=== PATIENT | female | born 1950 | race Native Hawaiian/Other Pacific Islander ===

== ENCOUNTER 2018-11-15 15:16 | Inpatient (IN) | payer MEDICARE, SELFPAY ==
[2018-11-15] VITALS (20 sets, daily range): BP systolic 123–178; BP diastolic 59–97; PULSE 91–114; RESP 15–89; TEMP 36.3–36.9; O2SAT 95–100; BMI 24.5
--- NOTE | 2018-11-15 15:49 | DI.RAD.S_ITS ---
PROCEDURE: XR ANKLE LT MIN 3V INDICATIONS: slipped, now with deformity ankle, discolored,cool to touch/ TECHNIQUE: 30 views of the ankle were acquired. COMPARISON: None. FINDINGS: Bones: Fractures of the medial malleolus, lateral malleolus and posterior malleolus noted. The calyces dislocated laterally. Soft tissues: No tibiotalar joint effusion. Achilles tendon appears normal. IMPRESSION: Left ankle fracture-dislocation. Dictated by: Berna Loera MD, PhD on 11/15/2018 at 16:06 Approved by: Berna Loera MD, PhD on 11/15/2018 at 16:07
--- NOTE | 2018-11-15 15:51 | PC.NURSE ---
pt reports, doing laundry, floor is wet, slipped, occured at 1115, now with left ankle deformity, cool to touch, +dp,discolored. states, crawled on the carpet for a while. left ankle with superficial abrasions lateral side. last solid meal at 11am
--- NOTE | 2018-11-15 15:53 | ED_ITS ---
HPI - Extremity Injury (Lower) General Chief Complaint: Extremity Injury, Lower Stated Complaint: L ankle deformity Time Seen by Provider: 11/15/18 15:53 Source: patient Mode of arrival: EMS Limitations: no limitations History of Present Illness HPI Narrative: Patient is a 68-year-old female insulin-dependent diabetic who stated that she was in her laundry room today when she slipped and fell. She states she slipped on water on the floor. Stated that she did not hit her head. She had immediate pain in her left ankle. Was unable to walk on it. She states that it took her at least an hour to crawl to the phone where she could call the ambulance. When ambulance arrived they noticed a obvious deformity to her left ankle. They placed her in a pillow splint and brought her to the emergency department. No other interventions prior to arrival. Patient reports no other injuries from the event. Related Data Previous Rx's Medication Instructions Recorded [True Metrix Test str] #100 ea 07/20/16 [lancets] 1 MC Q DAY #100 ea 07/20/16 [true metrix monitor] #1 07/20/16 metformin 1,000 mg PO BID #180 tab 12/21/16 Allergies Allergy/AdvReac Type Severity Reaction Status Date / Time No Known Drug Allergies Allergy Verified 11/15/18 15:21 Review of Systems Constitutional Denies fever(s) and Denies frequent falls Eyes Denies loss of vision ENT Ears, Nose, Mouth, and Throat: Denies disequilibrium Cardiovascular Denies chest pain and Denies dyspnea Respiratory Denies dyspnea Gastrointestinal Gastrointestinal: Denies abdominal pain, Denies nausea and Denies vomiting Musculoskeletal Comments: Left ankle pain and deformity Integumentary/Breasts Comments: Blister/abrasion to the inside of her left ankle Neurologic Denies behavioral changes, Denies frequent falls, Denies loss of vision, Denies sensory deficit and Denies disequilibrium Psychiatric Denies behavioral changes Hematologic/Lymphatic Denies easy bleeding and Denies easy bruising [facility] Medical History Diabetes (Chronic) Hyperlipidemia (Chronic ~07/2016) Hypertension (Chronic) Hypothyroidism (Chronic ~07/2016) Carpal tunnel syndrome (Resolved ~1997) Wrist fracture, right (Resolved 11/2016) Surgical History (Updated 04/08/18 @ 12:30 by Liz Verduzco LPN) History of carpal tunnel repair (1997) Family History (Updated 04/08/18 @ 12:30 by Liz Verduzco LPN) Mother Age: 87 Diabetes mellitus Father Dementia Social History lives independently: Yes Family History (Updated 04/08/18 @ 12:30 by Liz Verduzco LPN) Mother Age: 87 Diabetes mellitus Father Dementia Social History lives independently: Yes Exam Initial Vital Signs Initial Vital Signs: Vital Signs Temperature 97.8 F 11/15/18 15:19 Pulse Rate 97 H 11/15/18 15:19 Respiratory Rate 16 11/15/18 15:19 Blood Pressure 168/97 H 11/15/18 15:19 Pulse Oximetry 99 11/15/18 15:19 Const General: cooperative, comfortable, well developed, well groomed and No acute distress Orientation: alert, awake and oriented x3 HENMT Head: normal to inspection and normocephalic Resp Effort & Inspection: normal respiratory effort Auscultation: clear to auscultation bilaterally Cardio Rate: regular rate Rhythm: regular rhythm Pulses: posterior tibial pulses present on the left GI Inspection: non-distended Palpation: soft Skin Other: Patient with what appeared to be fracture blisters on the medial malleolus. Neuro Other: Sensation intact to light touch left lower extremity Extrem Other: Left hip and left knee unremarkable. Patient does have obvious deformity to the left ankle. No other orthopedic injuries noted. Psych Appearance: grossly normal and well kempt Procedures Orthopedic Fracture Reduction Fracture #1: Time Out Performed: Yes Side: left Fracture Reduction Location: tibia and fibula Analgesia: other (IV fentanyl) Technique: direct manipulation Post Reduction X-rays Demonstrate: anatomical reduction Post-reduction neuro exam: intact and no change Post-reduction vascular exam: intact and no change Splint Applied: Yes Patient Tolerated Procedure: Well and No complications Orthopedic Splinting/Casting Injury #1: Side: left Lower Extremity Injury Location: ankle Lower Extremity Immobilizer: posterior splint and stirrup splint Other Orthopedic Equipment: crutches Post splinting neuro exam: intact and no change Post splinting vascular exam: no change Placed by: Provider Course Orders Ordered: ED Orders 11/15/18 15:49 XR ankle LT min 3V Stat 11/15/18 17:50 XR ankle LT 2V Stat Discontinued Medications Fentanyl (Sublimaze) 50 mcg IV NOW ONE Stop: 11/15/18 16:50 Last Admin: 11/15/18 17:38 Dose: 50 mcg Fentanyl (Sublimaze) 50 mcg IV NOW ONE Stop: 11/15/18 18:21 Last Admin: 11/15/18 18:20 Dose: 50 mcg Morphine Sulfate (Morphine) 4 mg IV NOW ONE Stop: 11/15/18 15:56 Last Admin: 11/15/18 16:10 Dose: 4 mg Vital Signs - 8 hr 11/15/18 15:19 11/15/18 15:30 11/15/18 15:45 Temperature 97.8 F Pulse Rate 97 H 91 H 96 H Respiratory Rate 16 89 H Blood Pressure 168/97 H Blood Pressure [Left Arm] 156/82 H 155/87 H Pulse Oximetry 99 100 11/15/18 16:15 11/15/18 16:51 11/15/18 17:29 Temperature Pulse Rate 94 H 97 H 102 H Respiratory Rate 15 18 Blood Pressure Blood Pressure [Left Arm] 142/81 H 123/59 L 144/74 H Pulse Oximetry 99 98 100 11/15/18 17:38 11/15/18 18:10 11/15/18 18:19 Temperature Pulse Rate 99 H 94 H 96 H Respiratory Rate 25 H 26 H 18 Blood Pressure Blood Pressure [Left Arm] 163/75 H 158/80 H 159/85 H Pulse Oximetry 98 95 98 11/15/18 18:22 11/15/18 18:31 11/15/18 18:38 Temperature Pulse Rate 96 H 101 H 100 H Respiratory Rate 18 18 20 Blood Pressure Blood Pressure [Left Arm] 160/79 H 178/93 H 171/88 H Pulse Oximetry 95 97 95 11/15/18 18:40 11/15/18 18:54 11/15/18 18:56 Temperature Pulse Rate 96 H 99 H 97 H Respiratory Rate 18 18 Blood Pressure Blood Pressure [Left Arm] 150/84 H 158/79 H 153/84 H Pulse Oximetry 99 97 MDM - Extremity Injury (Lower) Lab Data Point of Care Testing Test Results Negative Imaging Data Left ankle x-ray: Radiologist's impression: [address] [address] XRay Report Signed Patient: Caitlin KerrR#: [id number] : 2At:[id number] Age/Sex: 68 / FDate of Service: 11/15/18 Loc: ED Accession Number: [id number] Procedure: XR ankle LT min 3V Ordering Provider: Ryley Walker D.O. PROCEDURE: XR ANKLE LT MIN 3V INDICATIONS: slipped, now with deformity ankle, discolored,cool to touch/ TECHNIQUE: 30 views of the ankle were acquired. COMPARISON: None. FINDINGS: Bones: Fractures of the medial malleolus, lateral malleolus and posterior malleolus noted. The calyces dislocated laterally. Soft tissues: No tibiotalar joint effusion. Achilles tendon appears normal. IMPRESSION: Left ankle fracture-dislocation. Dictated by: Berna Loera MD, PhD on 11/15/2018 at 16:06 Approved by: Berna Loera MD, PhD on 11/15/2018 at 16:07 Post reduction left ankle x-ray: Radiologist's impression: [address] [address] XRay Report Signed Patient: Zoraida Kerr#: [id number] : 2Acct:[id number] Age/Sex: 68 / FDate of Service: 11/15/18 Loc: ED Accession Number: [id number] Procedure: XR ankle LT 2V Ordering Provider: Ryley Walker D.O. PROCEDURE: XR ANKLE LT 2V INDICATIONS: post reduction TECHNIQUE: L2 views of the ankle were acquired. COMPARISON: [facility], , XR ANKLE LT MIN 3V, 11/15/2018, 15:54. FINDINGS: Bones: Patient is status post reduction of a pilon fracture. Fracture fragments are now in near-anatomic alignment. Soft tissues: No tibiotalar joint effusion. Achilles tendon appears normal. IMPRESSION: Near-anatomic alignment status post reduction. Dictated by: Brooke Dietrich M.D. on 11/15/2018 at 18:45 Approved by: Brooke Dietrich M.D. on 11/15/2018 at 18:46 MDM Narrative Medical decision making narrative: Patient with what appears to be a mechanical fall. She has an obvious deformity to her left ankle which was reduced and splinted per the procedure note. I did discuss the case with Dr. Schaeffer who is on for Orthopedics who stated that because she had fracture blisters on her medial malleolus that he would not take her to the operating room. Patient has no other injuries from the fall. We did have to place the splint twice because after the 1st splint application her ankle was still dislocated. The patient tolerated the procedure very well with just IV fentanyl. Patient was unable to use the crutches to get to the bathroom. This was secondary to her ability to use the crutches not per any reports of pain. She actually was sleeping in the room after the reduction. Patient lives on her own. She has no help at home. She has stairs in her house. Given her living situations and the fracture will admit for physical therapy evaluation. Discussed the case with the night hospitalist who will admit. Discussed admission with the patient who expressed understanding and agreement Patient has a scheduled appointment with Dr. Schaeffer on November 22 at 1030 in the morning at the [facility] Orthopedic group office here in [place] The patient was given this information. Discharge Plan Departure Patient Disposition: Admitted as Observation Clinical Impression: Ankle fracture, left Qualifiers: Encounter type: initial encounter Fracture type: closed Qualified Code(s): S82.892A - Other fracture of left lower leg, initial encounter for closed fracture
[2018-11-15] MEDS: MORPHINE 4 MG/ML INJ IV (16:10)
[2018-11-15] MEDS: fentaNYL 100 MCG/2 ML INJ 50 MCG IV ×2 (17:38→18:20)
--- NOTE | 2018-11-15 17:50 | DI.RAD.S_ITS ---
PROCEDURE: XR ANKLE LT 2V INDICATIONS: post reduction TECHNIQUE: L2 views of the ankle were acquired. COMPARISON: [facility], CR, XR ANKLE LT MIN 3V, 11/15/2018, 15:54. FINDINGS: Bones: Patient is status post reduction of a pilon fracture. Fracture fragments are now in near-anatomic alignment. Soft tissues: No tibiotalar joint effusion. Achilles tendon appears normal. IMPRESSION: Near-anatomic alignment status post reduction. Dictated by: Brooke Dietrich M.D. on 11/15/2018 at 18:45 Approved by: Brooke Dietrich M.D. on 11/15/2018 at 18:46
--- NOTE | 2018-11-15 17:50 | PC.NURSE ---
1738 wound cleaned/irrigated with ns. dried, dr jacobo placed zero form at the site. 1738 fentanyl 50mcg ivps [address] jacobo for left lower leg splint. +dcsm post application, circulation improved, pink, pt able to wiggle toes.
--- NOTE | 2018-11-15 17:57 | PC.NURSE ---
re xray, post splint application.
[2018-11-15] MEDS: MAG HYDROX/ALUMINUM/SIMETH SUS 20 ML, LIDOCAINE VISCOUS 2% 15 ML PO (22:36)
--- NOTE | 2018-11-15 22:38 | PM.HP.1 ---
History of Present Illness Date Patient Seen: 11/15/18 Time Patient Seen: 22:39 Chief complaint: L ankle deformity Narrative: The patient is a 68-year-old female w/ HTN (history, currently not on meds), IDDM 2T, HLD (diet controlled), and hypothyroidism who presented to the ED after sustaining a ground level fall. Patient reports slipping on water in her laundry room. She fell onto her left ankle. At time of injury experienced immediate pain. She was unable to get up on her own ambulate. Denies injury to the head and loss of consciousness. Prior to the event patient was not dizzy. Denies chest pain, palpitations, dizziness, lightheadedness, and syncopal events. She crawled to the phone to summon help, thereafter was transferred to the ED for further evaluation. XR of the ankle revealed fracture of the medial malleolus, lateral malleolus, and posterior malleolus. The calyces dislocated laterally. ED discussed patient's case with Orthopedic surgery, Dr. Schaeffer. Patient was not a surgical candidate due to fracture blisters on medial malleolus. Consequently she underwent a reduction and splinting of the injured extremity. Patient was unable to use crutches or ambulate on own. At baseline patient lead lives and functions independently. She does not have family or other help available to her. Patient is being admitted for physical therapy. Patient History Medical History Diabetes (Chronic) Hyperlipidemia (Chronic ~07/2016) Hypertension (Chronic) Hypothyroidism (Chronic ~07/2016) Carpal tunnel syndrome (Resolved ~1997) Wrist fracture, right (Resolved 11/2016) Surgical History History of carpal tunnel repair (1997) Family History (Updated 04/08/18 @ 12:30 by Liz Verduzco LPN) Mother Age: 87 Diabetes mellitus Father Dementia Social History lives independently: Yes Family & Social History Family History Mother Age: 87 Diabetes mellitus Father Dementia Social History: lives independently Yes Safety & Behavioral: Feels Safe in Current Yes Environment Been Physically Hurt or No Threatened By a Person Meds Home Medications Medication Instructions Recorded Confirmed Type [True Metrix Test str] #100 ea 07/20/16 Rx [lancets] 1 MC Q DAY #100 ea 07/20/16 Rx [true metrix monitor] #1 07/20/16 Rx metformin 1,000 mg PO BID #180 tab 12/21/16 11/15/18 Rx Allergies Allergy/AdvReac Type Severity Reaction Status Date / Time No Known Drug Allergies Allergy Verified 11/15/18 15:21 Review of Systems Review of Systems All systems reviewed & are unremarkable except as noted in HPI and below Exam Vital Signs (past 8 hours): - 11/15/18 15:19 11/15/18 15:30 11/15/18 15:45 Temperature 97.8 F Pulse Rate 97 H 91 H 96 H Respiratory Rate 16 89 H Blood Pressure 168/97 H Blood Pressure [Left Arm] 156/82 H 155/87 H Pulse Oximetry 99 100 11/15/18 16:15 11/15/18 16:51 11/15/18 17:29 Temperature Pulse Rate 94 H 97 H 102 H Respiratory Rate 15 18 Blood Pressure Blood Pressure [Left Arm] 142/81 H 123/59 L 144/74 H Pulse Oximetry 99 98 100 11/15/18 17:38 11/15/18 18:10 11/15/18 18:19 Temperature Pulse Rate 99 H 94 H 96 H Respiratory Rate 25 H 26 H 18 Blood Pressure Blood Pressure [Left Arm] 163/75 H 158/80 H 159/85 H Pulse Oximetry 98 95 98 11/15/18 18:22 11/15/18 18:31 11/15/18 18:38 Temperature Pulse Rate 96 H 101 H 100 H Respiratory Rate 18 18 20 Blood Pressure Blood Pressure [Left Arm] 160/79 H 178/93 H 171/88 H Pulse Oximetry 95 97 95 11/15/18 18:40 11/15/18 18:54 11/15/18 18:56 Temperature Pulse Rate 96 H 99 H 97 H Respiratory Rate 18 18 Blood Pressure Blood Pressure [Left Arm] 150/84 H 158/79 H 153/84 H Pulse Oximetry 99 97 11/15/18 20:30 Temperature Pulse Rate 107 H Respiratory Rate 18 Blood Pressure Blood Pressure [Left Arm] 148/63 H Pulse Oximetry 97 Oxygen Delivery Method Room Air Narrative Exam Narrative: Constitutional: NAD Neurologic: AOx3, no focal neurological deficits Head: NC, AT Eyes: PERRL, EOMI, Ears: external ears normal, no otorrhea Nose: external nose normal, no rhinorrhea or epistaxis Throat: MMM, oropharynx w/o exudate Neck: no masses, lymphadenopathy, or JVD Chest / Respiratory: equal chest rise, unlabored respiratory effort, no distress tachypnea, CTAB Heart / CV: S1S2, no murmur Abdomen / GI: NT, ND, + BS, no organomegaly : no suprapubic tenderness Peripheral / Vascular: RLE -peripheral pulses palpable, no edema, sensation intact LLE - pupils palpable, edema, extremity in splint, mid-foot to toes slightly cool, sensation intact, splint present Musc: full ROM of upper and RLE. LLE decreased strength, but ROM intact. Skin: Skin intact known suspicious lesion Assessment & Plan Assessment & Plan narrative: Tri-malleolar fracture, acute, present on admission, active - status post reduction and splinting - neurovascular checks q.4 hours - supportive care - consult PT in a.m., re: mobility training w/ crutches - not a surgical candidate, per ED, discussed with Dr. Schaeffer Pain, acute, present on admission, active - Tylenol and Tramadol , prn Essential hypertension (not on meds), chronic condition, present on admission, active BP slightly elevated due to acute pain - trend BP - treat underlying pain DM 2T, chronic, present on admission, not controlled - resume [employer] regimen of metformin, trend blood glucose -carb consistent ADH healthy diet Patient wishes to be full code. Does not have a formal health directive. Designates her neighbor Kim, as a surrogate decision maker Home medications reviewed and reconciled VTE w/ heparin
[2018-11-16] VITALS (8 sets, daily range): BP systolic 118–163; BP diastolic 59–92; PULSE 82–102; RESP 16–18; TEMP 36.2–37.4; O2SAT 97–100; BMI 24.5
--- NOTE | 2018-11-16 06:33 | PC.NURSE ---
Shift note: Received pt from evening shift, finished admission physical assessment. Findings notable for hypertension and tachycardia and pain to LLE which is wrapped in barber wrap and splinted. Shift neurovascular checks demonstrated palpable dorsalis pedis pulse, and <2 cap refill in great toe. Pt used bedpan at the beginning of shift as she did not feel safe to use crutches or perform single leg stand and pivot. Pt reported tolerable pain at 3/10 numerically and denied the need for pain medications. Pt is a Type 2 diabetic who uses metformin, she did not take her evening metformin and will continue with [facility] blood sugar checks today. Pt was oriented to room and all safety checks, used call light proficiently and was able to make needs know. Remains a high fall risk d/t the fact that she is here as the result of a fall and is unsteady on crutches.
[2018-11-16 09:47] LABS: Add Manual Diff / Slide Review NO; Basophils Absolute Auto 0 /uL (0-100); Basophils Percent Auto 0.4 % (0-2); Eosinophils Absolute Auto 0 /uL (0-450); Eosinophils Percent Auto 0.3 % (2-4); Hematocrit 30.1 % (36-46); Hemoglobin 10.3 g/dL (12.0-16.0); Lymphocytes Absolute Auto 1500 /uL (1100-4500); Lymphocytes Percent Auto 16.6 % (25-40); Mean Corpuscular HGB Conc 34.3 % (30-36); Mean Corpuscular Hemoglobin 31.8 PG (26-34); Mean Corpuscular Volume 92.9 fL (80-100); Monocytes Absolute Auto 1000 /uL (0-900); Monocytes Percent Auto 11.2 % (3-14); Neutrophils Absolute Auto 6400 /uL (1500-7000); Neutrophils Percent Auto 71.5 % (50-75); Platelet Count 340 X10^3/uL (150-400); Red Blood Cell Count 3.24 X10^6/uL (4.0-5.2); Red Cell Distribution Width 12.2 % (11.6-14.8); White Blood Cell Count 8.9 X10^3/uL (4.5-11.0)
[2018-11-16] MEDS: HEPARIN 5,000 UNIT/ML VIAL 5000 UNIT SUBCUT ×2 (09:51→21:14)
[2018-11-16] MEDS: INSULIN REGULAR 100 UNIT/ML 3 ML VIAL 10 UNIT IV (09:52)
[2018-11-16] MEDS: TRAMADOL 50 MG TABLET PO ×2 (09:52→18:24)
[2018-11-16 10:04] LABS: Alanine Aminotransferase 37 IU/L (9-52); Albumin 3.9 g/dL (3.5-5.0); Albumin Globulin Ratio 1.2 (1.0-2.8); Alkaline Phosphatase 99 U/L (38-126); Aspartate Aminotransferase 47 IU/L (14-36); BUN Creatinine Ratio 23.6 (6-22); Bilirubin Total 0.7 mg/dL (0.2-1.3); Blood Urea Nitrogen 26 mg/dL (7-17); Calcium 10.6 mg/dL (8.4-10.2); Carbon Dioxide 29 mmol/L (22-32); Chloride 81 mmol/L (98-107); Estimated Glomerular Filt Rate 49.7 mL/min (>60); Globulin 3.2 g/dL (1.7-4.1); Glucose 385 mg/dL (80-110); HEMOLYSIS < 15 (0-50); Magnesium 1.5 mg/dL (1.6-2.3); Potassium 4.2 mmol/L (3.4-5.1); Sodium 121 mmol/L (137-145); Total Protein 7.1 g/dL (6.3-8.2)
--- NOTE | 2018-11-16 11:04 | PM.PN.1 ---
Subjective Date Patient Seen: 11/16/18 Time Patient Seen: 11:06 Interval history: Patient admitted for the emergency room left ankle trimalleolar fracture. she sustained a fall and her laundry area on wet floor yesterday. She was seen in the emergency room for evaluation and x-ray. Had displaced trimalleolar fracture which was reduced in the ER and placed in a lower leg splint. Dr. Schaeffer was consulted by phone for orthopedic evaluation. he was told that the patient had blisters to her medial ankle and it was decided not to do surgery at this time because of potential infection risk. Because of patient living alone and having stairs and other management issues she was admitted to the hospital under the hospitalist. Dr. Schaeffer was not informed of this. She has remained stable and nonweightbearing to the left leg. plans were made before the patient was admitted to the hospital for her to be seen by Dr. Schaeffer on 11/22/2018 at 1030 for re-evaluation of her ankle and to check her skin. she is tentatively scheduled for left ankle surgery in approximately 2 weeks. Exam Vital Signs (past 8 hours): - 11/16/18 05:44 11/16/18 09:00 Temperature 98.3 F 98.0 F Pulse Rate 102 H 89 Respiratory Rate 18 16 Blood Pressure 147/77 H 163/92 H Pulse Oximetry 100 97 Oxygen Delivery Method Room Air Oxygen Flow Rate 0 Narrative Exam Narrative: Alert, oriented no acute distress resting in bed. left leg. lower leg splint is in place. good blanching and sensation to all toes. Good movement of all toes. The splint and padding were opened to be able to evaluate her ankle area. she has a few small blisters to the superior medial malleolus area approximately 2-3 mm in size. Slight superficial abrasion to the medial malleolus area without signs of infection or inflammation. Good pulses and sensation to foot. Mynor wrap dry applied to the splint. Objective Labs Result Diagrams: 11/16/18 09:17 11/16/18 09:17 Labs: Laboratory Results - last 24 hr 11/16/18 11/16/18 11/16/18 09:17 09:17 09:17 WBC 8.9 RBC 3.24 L Hgb 10.3 L Hct 30.1 L MCV 92.9 MCH 31.8 MCHC 34.3 RDW 12.2 Plt Count 340 Neut % (Auto) 71.5 Lymph % (Auto) 16.6 L [place] % (Auto) 11.2 Eos % (Auto) 0.3 L Baso % (Auto) 0.4 Neut # (Auto) 6400 Lymph # (Auto) 1500 [place] # (Auto) 1000 H Eos # (Auto) 0 Baso # (Auto) 0 Sodium 121 L Potassium 4.2 Chloride 81 L Carbon Dioxide 29 BUN 26 H Creatinine 1.10 H Estimated GFR 49.7 L BUN/Creatinine Ratio 23.6 H Glucose 385 H Calcium 10.6 H Magnesium 1.5 L Total Bilirubin 0.7 AST 47 H ALT 37 Alkaline Phosphatase 99 Total Protein 7.1 Albumin 3.9 Globulin 3.2 Albumin/Globulin Ratio 1.2 Procalcitonin 0.20 Assessment & Plan Assessment & Plan narrative: Plan: Patient will be nonweightbearing to left leg. I did contact Dr. Schaeffer by phone to inform him of formal ortho consult requested. Quality VTE Deep Vein Thrombosis/Pulmonary Embolism Present on Admission: No
--- NOTE | 2018-11-16 11:11 | P.PN_ITS ---
Subjective Date Patient Seen: 11/16/18 Time Patient Seen: 11:06 Interval history: Patient admitted for the emergency room left ankle trimalleolar fracture. she sustained a fall and her laundry area on wet floor yesterday. She was seen in the emergency room for evaluation and x-ray. Had d isplaced trimalleolar fracture which was reduced in the ER and placed in a lower leg splint. Dr. Schaeffer was consulted by phone for orthopedic evaluation. he was told that the patient had blisters to her medial ankle and it was decided not to do surgery at this time because of potential infection risk. Because of patient living alone and having stairs and other management issues she was admitted to the hospital under the hospitalist. Dr. Schaeffer was not informed of this. She has remained stable and nonweightbearing to the left leg. plans were made before the patient was admitted to the hospital for her to be seen by Dr. Schaeffer on 11/22/2018 at 1030 for re-evaluation of her ankle and to check her skin. she is tentatively scheduled for left ankle surgery in approximately 2 weeks. Exam Vital Signs (past 8 hours): - 11/16/18 05:44 11/16/18 09:00 Temperature 98.3 F 98.0 F Pulse Rate 102 H 89 Respiratory Rate 18 16 Blood Pressure 147/77 H 163/92 H Pulse Oximetry 100 97 Oxygen Delivery Method Room Air Oxygen Flow Rate 0 Narrative Exam Narrative: Alert, oriented no acute distress resting in bed. left leg. lower leg splint is in place. good blanching and sensation to all toes. Good movement of all toes. The splint and padding were opened to be able to evaluate her ankle area. she has a few small blisters to the superior medial malleolus area approximately 2-3 mm in size. Slight superficial abrasion to the medial malleolus area without signs of infection or inflammation. Good pulses and sensation to foot. Mynor wrap dry applied to the splint. Objective Labs Result Diagrams: 11/16/18 09:17 11/16/18 09:17 Labs: Laboratory Results - last 24 hr 11/16/18 11/16/18 11/16/18 09:17 09:17 09:17 WBC 8.9 RBC 3.24 L Hgb 10.3 L Hct 30.1 L MCV 92.9 MCH 31.8 MCHC 34.3 RDW 12.2 Plt Count 340 Neut % (Auto) 71.5 Lymph % (Auto) 16.[address] [place] % (Auto) 11.2 Eos % (Auto) 0.3 L Baso % (Auto) 0.4 Neut # (Auto) 6400 Lymph # (Auto) 1500 [place] # (Auto) 1000 H Eos # (Auto) 0 Baso # (Auto) 0 Sodium 121 L Potassium 4.2 Chloride 81 L Carbon Dioxide 29 BUN 26 H Creatinine 1.10 H Estimated GFR 49.7 L BUN/Creatinine Ratio 23.6 H Glucose 385 H Calcium 10.6 H Magnesium 1.5 L Total Bilirubin 0.7 AST 47 H ALT 37 Alkaline Phosphatase 99 Total Protein 7.1 Albumin 3.9 Globulin 3.2 Albumin/Globulin Ratio 1.2 Procalcitonin 0.20 Assessment & Plan Assessment & Plan narrative: Plan: Patient will be nonweightbearing to left leg. I did contact Dr. Schaeffer by phone to inform him of formal ortho consult requested. Quality VTE Deep Vein Thrombosis/Pulmonary Embolism Present on Admission: No
[2018-11-16] MEDS: INSULIN ASPART 100 UNIT/ML INSULN PEN SUBCUT ×3 (12:06→21:17)
[2018-11-16] MEDS: ACETAMINOPHEN 325 MG TABLET 650 MG PO (14:20)
--- NOTE | 2018-11-16 14:44 | PT.IIE ---
Current Diagnoses Other fracture of left lower leg, initial encounter for closed fracture (11/15/18) Surgical History (Last Reviewed 11/15/18 @ 22:42 by SARKIS Avila) History of carpal tunnel repair (1997) Medical History (Last Reviewed 11/15/18 @ 22:40 by SARKIS Avila) Diabetes (Chronic) Hyperlipidemia (Chronic ~07/2016) Hypertension (Chronic) Hypothyroidism (Chronic ~07/2016) Carpal tunnel syndrome (Resolved ~1997) Wrist fracture, right (Resolved 11/2016) Physical Therapy Inpatient Evaluation/Re-Eval M1 PT/OT-IP Prior Functional Status Start: 11/16/18 16:42 Freq: NEEDED Status: Active Protocol: Document 11/16/18 14:44 AB (Rec: 11/16/18 16:59 AB [id number]) Medical Review Prior Functional Status Medical History Reviewed Yes Communication able to make needs known Mobility and Gait pt stated that she is indpendent with all mobilities and ambulation without AD Social History Household Members none Living Arrangements House Number of Floors (Floors) 3 or More Floors Number of Stairs To Enter/Railing? to enter: 8 steps with R rail ascending to bedroom level: 7 steps with bilateral rails to laundry room: 6 steps with L rail descending Home Environment Standard Height Toilet Tub/Shower Home Equipment Crutches Additional Social History Comment pt has crutches dispensed from the ER but pt does not know how to use it M2 PT-IP Current Condition Start: 11/16/18 16:42 Freq: NEEDED Status: Active Protocol: Document 11/16/18 14:44 AB (Rec: 11/16/18 16:59 AB [id number]) Physical Therapy Current Condition Current Condition Evaluation Date 11/16/18 Treatment Diagnosis L trimalleolar ankle fx; difficulty in walking Onset Date 11/15/18 Precautions Brace pt has a L lower leg soft cast on Weight Bearing Status Weight Bearing Status Non-Weight Bearing Allowed Weight Bearing Amount (enter % NWB LLE or #) (%) M3 PT-IP Subjective Start: 11/16/18 16:42 Freq: NEEDED Status: Active Protocol: Document 11/16/18 14:44 AB (Rec: 11/16/18 16:59 AB [id number]) Subjective Physical Therapy Visit Type Type Initial Evaluation Visit Start Time 14:44 Visit Stop Time 15:20 Total Visit Minutes 36 Number of PHYSICAL THERAPY AIDES TEACHER Visits 0 Physical Therapy Visit Comments Patient Comments pt agreeable to do PT Therapy Pain Assessment Pain When Pain Assessed At Rest Pain Present Pain Present Pain Reported Location left ankle Intensity 6 Scale Used increases with movement Pain Management Techniques Re-positioning Timing of Activity with Medications M4 PT-IP Mobility and Gait Start: 11/16/18 16:42 Freq: NEEDED Status: Active Protocol: Document 11/16/18 14:44 AB (Rec: 11/16/18 16:59 AB [id number]) PT-Bed Mobility Assessment Supine to Sit Supine to Sit Minimal Assistance Scooting Scooting to Edge of Bed Standby Assistance PT-Transfer Assessment Sit to and From Stand Sit to and from Stand Maximum Assistance 1 Person Assistance 2 Person Assistance Use of Upper Extremities Equipment Transfer Assistive Device Gait Belt Front Wheeled Walker Orthotic/Prosthetic Devices or Brace: Yes Transfers Transfer Destination Chair Bedside Commode Transfer Technique Stand Step Pivot Transfer Ability Level of Assist Maximum Assistance 2 Person Assistance Use of Upper Extremities Comments Mobility Comments pt completed sit to stand x 3 attempts requiring max A x 1 to 2 and max cues. pt decrease motor planning requiring step by step cues with all tasks but despite cues has difficulty following instructions. pt completed stand pivot transfer using FWW max A x 2 and max cues. pt presents with unsteadiness with standing and required min A and max cues to maintain NWB on LLE. pt completed sit to stand from bedside commode max A x 1 and max cues and was able to maintain standing using FWW for support mod A while nurse assist pt with hygiene care and brief management. pt completed stand pivot trnasfer requiring max A x 2 . pt with LOB and required max A for controlled descent to the chair but able to keep LE off the floor with assist. Gait Assessment Comments Gait Comments unable at this time PT-Balance Assessment Sitting Balance and Reactions Static Sitting Balance Ability Good Dynamic Sitting Balance Ability Good Standing Balance and Reactions Static Standing Balance Ability Poor Dynamic Standing Balance Ability Poor Device Used FWW M5 PT-IP Objective Assessments Start: 11/16/18 16:42 Freq: NEEDED Status: Active Protocol: Document 11/16/18 14:44 AB (Rec: 11/16/18 16:59 AB [id number]) Orientation Orientation/Cognition Level of Alertness Alert Orientation Name Place Situation Safety Awareness Decreased Safety Awareness Memory Description Short Term Impaired Button Grader Impaired Gross Range of Motion Lower Extremity ROM Assessment Left Impaired Impairments L lower leg on a soft cast Strength Lower Extremity Strength Assessment Left Impaired Hip 4-/5 Knee 3+/5 Sensation Assessment Sensation Gross Sensation WNL Muscle Tone Muscle Tone WNL Yes M6 PT-IP Treatment Start: 11/16/18 16:42 Freq: NEEDED Status: Active Protocol: Document 11/16/18 14:44 AB (Rec: 11/16/18 16:59 AB [id number]) Physical Therapy Treatment Education Education Provided Weight Bearing Status Safety M7 PT-IP Assessment and Plan Start: 11/16/18 16:42 Freq: NEEDED Status: Active Protocol: Document 11/16/18 14:44 AB (Rec: 11/16/18 16:59 AB [id number]) PT Summary Assessment and Plan Potential Rehabilitation Potential Fair Status of Condition at Evaluation Evolving Summary Impairments Pain ROM Strength Balance Coordination Sensation Tone Cognition Bed Mobility Transfers Gait Activity Tolerance Assessment Summary pt requiring 2 person max A with mobility and unable to ambulate. pt will require SNF rehab to improve strength and function. axillary crutches was dispensed to pt when she was in the ER per pt, but pt is not appropriate to use crutches at this time. Goals Bed Mobility Goal Independent Transfer Goal Minimal Assistance Front Wheeled Walker Gait Goal Minimal Assistance Front Wheel Walker Gait Distance 50 Days to Meet Goals 10 Frequency of Treatment Frequency Of Treatment Twice a Day Treatment Plan Physical Therapy Treatment Plan Bed Mobility Training Transfer Training Gait Training Therapeutic Exercise Balance Retraining Post Op Education Discharge Planning Hot or Cold Pack Neuromuscular Re-ed Coordination Retraining Manual Therapy Other Recommendations and Next Treatment standing bal/jarrett, transfers Focus Recommendations To Nursing Amount of Assist Needed 2 Person Assist Discharge Recommendations PT Discharge Recommendations SNF Rehab
--- NOTE | 2018-11-16 17:20 | P.CONS_ITS ---
History of Present Illness Date Patient Seen: 11/16/18 Time Patient Seen: 17:20 Chief complaint: L ankle deformity Reason for consult: Left ankle fracture Requesting provider: Ryley Walker Narrative: The patient is a 68-year-old woman who lives alone in [place]. She slipped on a wet floor in her laundry room yesterday sustaining an injury to her left ankle. she crawl to the phone up the stairs which took approximately an hour. Emergency medical services took her to the emergency room where x-rays revealed a displaced trimalleolar left ankle fracture. This was a closed fracture and fracture blisters were already forming. I was contacted over the phone by the emergency room physician and we discussed closed reduction and splinting followed by delayed fixation after healing of the blisters. Apparently the patient had difficulty ambulating and was admitted to the hospital under the hospitalist for physical therapy. I was never informed of this. I have been reconsulted by the hospitalist to evaluate and treat the fracture. [facility] Medical History Diabetes (Chronic) Hyperlipidemia (Chronic ~07/2016) Hypertension (Chronic) Hypothyroidism (Chronic ~07/2016) Carpal tunnel syndrome (Resolved ~1997) Wrist fracture, right (Resolved 11/2016) Surgical History History of carpal tunnel repair (1997) Family History Mother Age: 87 Diabetes mellitus Father Dementia Social History household members: none lives independently: Yes Smoking Status: Never smoker alcohol intake: current Family History Mother Age: 87 Diabetes mellitus Father Dementia Social History household members: none lives independently: Yes Smoking Status: Never smoker alcohol intake: current Meds Home Medications Medication Instructions Recorded Confirmed Type metformin 1,000 mg PO BID #180 tab 12/21/16 11/15/18 Rx [True Metrix Test str] 1 ea MISCELLANEOUS DIRECTED 11/16/18 11/16/18 History [lancets] 1 ea MC Q DAY 11/16/18 11/16/18 History [true metrix monitor] 1 ea MISCELLANEOUS DIRECTED 11/16/18 11/16/18 History Allergies Allergy/AdvReac Type Severity Reaction Status Date / Time No Known Drug Allergies Allergy Verified 11/15/18 15:21 Review of Systems Review of Systems All systems reviewed & are unremarkable except as noted in HPI and below Exam Vital Signs (past 8 hours): - 11/16/18 13:00 11/16/18 15:40 11/16/18 17:00 Temperature 98.1 F 99.3 F Pulse Rate 92 H 92 H Respiratory Rate 16 18 Blood Pressure 147/76 H 123/59 L Pulse Oximetry 98 100 99 Oxygen Delivery Method Room Air Oxygen Flow Rate 0 Narrative Exam Narrative: Left ankle was splinted with small fracture blisters over the medial aspect. These appear to be anterior to the likely position of the incision. The foot is swollen but there is no gross deformity after the reduction performed in the emergency room. Light touch is intact in the super ficial and deep peroneal nerve distribution as well as the tibial nerve distribution. Patient can dorsiflex and plantar flex her toes. Objective Labs Result Diagrams: 11/16/18 09:17 11/16/18 09:17 Labs: Laboratory Results - last 24 hr 11/16/18 11/16/18 11/16/18 09:17 09:17 09:17 WBC 8.9 RBC 3.24 L Hgb 10.3 L Hct 30.1 L MCV 92.9 MCH 31.8 MCHC 34.3 RDW 12.2 Plt Count 340 Neut % (Auto) 71.5 Lymph % (Auto) 16.6 L [place] % (Auto) 11.2 Eos % (Auto) 0.3 L Baso % (Auto) 0.4 Neut # (Auto) 6400 Lymph # (Auto) 1500 [place] # (Auto) 1000 H Eos # (Auto) 0 Baso # (Auto) 0 Sodium 121 L Potassium 4.2 Chloride 81 L Carbon Dioxide 29 BUN 26 H Creatinine 1.10 H Estimated GFR 49.7 L BUN/Creatinine Ratio 23.6 H Glucose 385 H Calcium 10.6 H Magnesium 1.5 L Total Bilirubin 0.7 AST 47 H ALT 37 Alkaline Phosphatase 99 Total Protein 7.1 Albumin 3.9 Globulin 3.2 Albumin/Globulin Ratio 1.2 Procalcitonin 0.20 Radiographs: X-rays of the ankle show a displaced trimalleolar ankle fracture with comminution of the fibular fracture. There are postreduction x-rays showing acceptable relocation of the subluxated ankle and acceptable alignment of the fracture fragments. Assessment & Plan Assessment & Plan narrative: The patient has a closed ankle fracture on the left. Unfortunately she has not been able to perform well enough in physical therapy to be safe at home using crutches. What would typically be an outpatient evaluation and treatment has now been moved into the inpatient realm. The 1st availability that I have to perform this urgent elective fracture surgery would be Wednesday morning. We will have her continue physical therapy in the interim as this will assist her with eventual discharge after surgery. I have discussed the risks benefits and alternatives to surgery with the patient. She has agreed to proceed after this discussion and given her signed informed consent. Time Spent With Patient Time with patient: Greater than 35 minutes
--- NOTE | 2018-11-16 19:12 | PM.PN.1 ---
Subjective Date Patient Seen: 11/16/18 Interval history: Hannah Kerr is a 68-year-old female with a past medical history significant for hypertension, hyperlipidemia, diabetes mellitus type 2, non-insulin using, and hypothyroidism who presented after ground level fall with left ankle deformity and pain. Admitted for trimalleolar fracture and further management. The patient is resting in bedside chair. She is comfortable unless she moves her left leg. She has been on tramadol for pain control which has not given her much relief. Ordered oxycodone 5 mg every 4 hours as needed for moderate pain and will titrate to response. Also will cover with morphine 2 mg every 6 hours for severe pain. She has not had hyponatremia in the past and is currently asymptomatic. She denies polydipsia and polyuria related to her diabetes but has been significantly hyperglycemic since admission. She has no other complaints and denies headache, lightheadedness or dizziness, shortness of breath, chest pain, abdominal pain, nausea, vomiting, fever, chills, dysuria, diarrhea or constipation. She is voiding and eliminating without difficulty. She is not mobilizing well due to pain. Discussed patient with Orthopedic surgery and ask for formal consultation. The patient's surgery was delayed due to possible bullae on malleoli and possible risk of infection. However, she has an abrasion with a couple very small millimeter sized bullae around medial malleoli likely related to fall/fracture. She has no signs of infection. Orthopedic surgery has formally consulted and will await recommendations. Exam Vital Signs (past 8 hours): - 11/16/18 13:00 11/16/18 15:40 11/16/18 17:00 Temperature 98.1 F 99.3 F Pulse Rate 92 H 92 H Respiratory Rate 16 18 Blood Pressure 147/76 H 123/59 L Pulse Oximetry 98 100 99 Oxygen Delivery Method Room Air Oxygen Flow Rate 0 Narrative Exam Narrative: General: Middle-aged female sitting in bedside chair, mildly uncomfortable with movement but in no acute distress, well-developed, well-nourished, appropriately interactive. HEENT: Normocephalic, atraumatic. External ears without defect. Pupils equal, round, and reactive to light. Anicteric sclerae, moist conjunctivae, and no lid lag. Oropharynx free of erythema and cobble stoning with moist mucosa. Neck: Supple with full range of motion. No lymphadenopathy or thyromegaly. Cardiovascular: Regular rate and rhythm without murmurs, rubs, or gallops appreciated. Pulmonary: Clear to auscultation bilaterally without crackles, wheezes, or rhonchi. Normal respiratory effort with no use of accessory muscles. Abdomen: Soft, bowel sounds present, nontender, nondistended. No hepatosplenomegaly or masses appreciated. Extremities: No clubbing, cyanosis, or edema. Left leg in splint C/D/I. Vascularly intact. Skin: Normal temperature, turgor, and texture; no rash, ulcers, or subcutaneous nodules appreciated. Neurological: Cranial nerves grossly intact. Psychiatric: Normal mood and affect. Alert and oriented to person, place, and time. Objective Labs Result Diagrams: 11/16/18 09:17 11/16/18 09:17 Labs: Laboratory Results - last 24 hr 11/16/18 11/16/18 11/16/18 09:17 09:17 09:17 WBC 8.9 RBC 3.24 L Hgb 10.3 L Hct 30.1 L MCV 92.9 MCH 31.8 MCHC 34.3 RDW 12.2 Plt Count 340 Neut % (Auto) 71.5 Lymph % (Auto) 16.6 L [place] % (Auto) 11.2 Eos % (Auto) 0.3 L Baso % (Auto) 0.4 Neut # (Auto) 6400 Lymph # (Auto) 1500 [place] # (Auto) 1000 H Eos # (Auto) 0 Baso # (Auto) 0 Sodium 121 L Potassium 4.2 Chloride 81 L Carbon Dioxide 29 BUN 26 H Creatinine 1.10 H Estimated GFR 49.7 L BUN/Creatinine Ratio 23.6 H Glucose 385 H Calcium 10.6 H Magnesium 1.5 L Total Bilirubin 0.7 AST 47 H ALT 37 Alkaline Phosphatase 99 Total Protein 7.1 Albumin 3.9 Globulin 3.2 Albumin/Globulin Ratio 1.2 Procalcitonin 0.20 Assessment & Plan Assessment & Plan narrative: Hannah Kerr is a 68-year-old female with a past medical history significant for hypertension, hyperlipidemia, diabetes mellitus type 2, non-insulin using, and hypothyroidism who presented after ground level fall with left ankle deformity and pain. Admitted for trimalleolar fracture and further management. 1. Acute non-pathological trimalleolar fracture after ground level fall, present on admission. Active. -Status post reduction and splinting. -Continue close neurovascular checks. -Ordered Tylenol 650 mg every 6 hours as needed for mild pain, oxycodone 5-325 mg every 4 hours as needed for moderate pain, and morphine 2 mg IV every 6 hours as needed for severe pain. -Consulted Orthopedic surgery, Dr. Schaeffer, formally for evaluation and recommendations. -Continue PT and OT evaluation and treatment. 2. Hyponatremia, acuity unclear, present on admission. Active. -Possibly secondary to diabetes as she has been significantly hyperglycemic -Initial sodium 121 and patient is asymptomatic. -Ordered normal saline 100 mL/hr x1 bag. Reassess sodium level in the morning. 3. Hypertension, chronic, present on admission. Stable. -Not medically treated. BP slightly elevated due to acute pain. - trend BP - treat underlying pain 4. Diabetes mellitus type 2, non-insulin using, present on admission. Stable. -Unclear baseline hemoglobin A1c as patient has not seen a doctor in several years due to loss of insurance. Ordered hemoglobin A1c, pending. -Held metformin. -Patient was given regular insulin 10 units IV x1 due to significant hyperglycemia 428. Continue [facility] blood glucose checks and low-dose correctional scale insulin. Started Lantus 10 units daily at bedtime for tight glycemic control. -Continue heart healthy/carbohydrate consistent diet. 5. Hyperlipidemia, present on admission. Presume stable. -Not medically treated. Disposition: Patient likely to discharge in several days depending on orthopedic evaluation and recommendations, mobilization and pain control. Quality VTE Deep Vein Thrombosis/Pulmonary Embolism Present on Admission: No
[2018-11-16] MEDS: MORPHINE 2 MG/ML INJ IV (19:56)
[2018-11-16] MEDS: SODIUM CHLORIDE 0.9% 1,000 ML 100 ML IV (21:13)
[2018-11-16] MEDS: MAGNESIUM SULFATE 2 GM/50 ML PIGGYBACK IV (21:14)
[2018-11-16] MEDS: INSULIN GLARGINE 100 UNIT/ML 3ML PEN 10 UNIT SUBCUT (21:17)
[2018-11-16] MEDS: OXYCODONE IR 5 MG TABLET PO (21:39)
[2018-11-17] VITALS (17 sets, daily range): BP systolic 94–167; BP diastolic 56–93; PULSE 80–109; RESP 15–20; TEMP 36.1–36.7; O2SAT 92–99
[2018-11-17] MEDS: OXYCODONE IR 5 MG TABLET PO ×2 (01:11→13:38)
[2018-11-17] MEDS: ACETAMINOPHEN 325 MG TABLET 650 MG PO ×2 (01:12→13:37)
--- NOTE | 2018-11-17 01:58 | PC.NURSE ---
Sugar Cane Planter Note: 0030: Awake, assisted to change brief; pt assisted with willow care. Assisted to reposition. IV in place in lt wrist, with NS infusing at 100cc/hr. Splint and barber wrap intact to lt leg/ankle, and lt leg elevated on pillow.
[2018-11-17 06:38] LABS: Add Manual Diff / Slide Review NO; Alanine Aminotransferase 32 IU/L (9-52); Albumin 3.6 g/dL (3.5-5.0); Albumin Globulin Ratio 1.2 (1.0-2.8); Alkaline Phosphatase 87 U/L (38-126); Aspartate Aminotransferase 44 IU/L (14-36); BUN Creatinine Ratio 19.1 (6-22); Basophils Absolute Auto 0 /uL (0-100); Basophils Percent Auto 0.5 % (0-2); Bilirubin Total 0.5 mg/dL (0.2-1.3); Blood Urea Nitrogen 21 mg/dL (7-17); Calcium 9.5 mg/dL (8.4-10.2); Carbon Dioxide 29 mmol/L (22-32); Chloride 89 mmol/L (98-107); Eosinophils Absolute Auto 100 /uL (0-450); Estimated Glomerular Filt Rate 49.7 mL/min (>60); Globulin 3.1 g/dL (1.7-4.1); Glucose 194 mg/dL (80-110); HEMOLYSIS < 15 (0-50); Hematocrit 27.6 % (36-46); Hemoglobin 9.6 g/dL (12.0-16.0); Lymphocytes Absolute Auto 2900 /uL (1100-4500); Lymphocytes Percent Auto 40.6 % (25-40); Mean Corpuscular HGB Conc 34.6 % (30-36); Mean Corpuscular Hemoglobin 32.3 PG (26-34); Mean Corpuscular Volume 93.5 fL (80-100); Monocytes Absolute Auto 800 /uL (0-900); Monocytes Percent Auto 10.6 % (3-14); Neutrophils Absolute Auto 3300 /uL (1500-7000); Neutrophils Percent Auto 46.3 % (50-75); Platelet Count 294 X10^3/uL (150-400); Potassium 3.4 mmol/L (3.4-5.1); Red Blood Cell Count 2.96 X10^6/uL (4.0-5.2); Red Cell Distribution Width 12.3 % (11.6-14.8); Sodium 127 mmol/L (137-145); Total Protein 6.7 g/dL (6.3-8.2); White Blood Cell Count 7.2 X10^3/uL (4.5-11.0)
--- NOTE | 2018-11-17 07:24 | PM.PN.1 ---
Subjective Date Patient Seen: 11/17/18 Time Patient Seen: 07:24 Interval history: The patient is a 68-year-old woman who lives alone in [place]. She slipped on a wet floor in her laundry room yesterday sustaining an injury to her left ankle. She crawl to the phone up the stairs which took approximately an hour. Emergency medical services took her to the emergency room where x-rays revealed a displaced trimalleolar left ankle fracture. This was a closed fracture and fracture blisters were already forming. Dr. Schaeffer was consulted again last night and will plan to do ORIF tonight. Patient agrees with plan. She complains of a lot of pain in the ankle. PT has been very difficult, and she is slow to mobilize. Exam Vital Signs (past 8 hours): - 11/17/18 00:00 11/17/18 00:45 11/17/18 04:29 Temperature 97.0 F L Pulse Rate 80 Respiratory Rate 16 Blood Pressure 128/73 Pulse Oximetry 96 98 98 11/17/18 05:00 Temperature 97.2 F L Pulse Rate 82 Respiratory Rate 16 Blood Pressure 140/81 Pulse Oximetry 99 Oxygen Delivery Method Room Air Oxygen Flow Rate 0 Narrative Exam Narrative: Patient lying in bed in NAD. She is alert and oriented X3. Splint on left foot is well fitting and intact. Toes have brisk refill and full sensation. Objective Labs Result Diagrams: 11/17/18 06:12 11/17/18 06:12 Labs: Laboratory Results - last 24 hr 11/16/18 11/16/18 11/16/18 09:17 09:17 09:17 WBC 8.9 RBC 3.24 L Hgb 10.3 L Hct 30.1 L MCV 92.9 MCH 31.8 MCHC 34.3 RDW 12.2 Plt Count 340 Neut % (Auto) 71.5 Lymph % (Auto) 16.6 L [place] % (Auto) 11.2 Eos % (Auto) 0.3 L Baso % (Auto) 0.4 Neut # (Auto) 6400 Lymph # (Auto) 1500 [place] # (Auto) 1000 H Eos # (Auto) 0 Baso # (Auto) 0 Sodium 121 L Potassium 4.2 Chloride 81 L Carbon Dioxide 29 BUN 26 H Creatinine 1.10 H Estimated GFR 49.7 L BUN/Creatinine Ratio 23.6 H Glucose 385 H Calcium 10.6 H Magnesium 1.5 L Total Bilirubin 0.7 AST 47 H ALT 37 Alkaline Phosphatase 99 Total Protein 7.1 Albumin 3.9 Globulin 3.2 Albumin/Globulin Ratio 1.2 Procalcitonin 0.20 11/17/18 11/17/18 06:12 06:12 WBC 7.2 RBC 2.96 L Hgb 9.6 L Hct 27.6 L MCV 93.5 MCH 32.3 MCHC 34.6 RDW 12.3 Plt Count 294 Neut % (Auto) 46.3 L D Lymph % (Auto) 40.6 H D [place] % (Auto) 10.6 Eos % (Auto) 2.0 Baso % (Auto) 0.5 Neut # (Auto) 3300 Lymph # (Auto) 2900 [place] # (Auto) 800 Eos # (Auto) 100 Baso # (Auto) 0 Sodium 127 L Potassium 3.4 Chloride 89 L Carbon Dioxide 29 BUN 21 H Creatinine 1.10 H Estimated GFR 49.7 L BUN/Creatinine Ratio 19.1 Glucose 194 H D Calcium 9.5 Magnesium Total Bilirubin 0.5 AST 44 H ALT 32 Alkaline Phosphatase 87 Total Protein 6.7 Albumin 3.6 Globulin 3.1 Albumin/Globulin Ratio 1.2 Procalcitonin Assessment & Plan (1) Ankle fracture, left: Problem details: Plan to do ORIF tonight with Dr. Schaeffer. Patient will be NPO after breakfast this morning. Qualifiers: Encounter type: initial encounter Fracture healing: Fracture type: closed Open fracture type: Qualified Code(s): S82.892A - Other fracture of left lower leg, initial encounter for closed fracture Current visit: Yes Status: Acute Quality VTE Deep Vein Thrombosis/Pulmonary Embolism Present on Admission: No
[2018-11-17] MEDS: MORPHINE 2 MG/ML INJ IV (07:44)
[2018-11-17] MEDS: INSULIN ASPART 100 UNIT/ML INSULN PEN SUBCUT ×4 (07:51→21:35)
--- NOTE | 2018-11-17 08:43 | CM.DANOTE ---
Addendum entered by Erin Altamirano LPN 11/18/18 13:36: Sara/[facility] did confirm acceptance. Will update pt now and give her the [facility] brochure. Original Note: DCP: assessment: case received yesterday, EMR reviewed. Discussed in Team Rounds. At that point POC was very much in process and is now clearer. Met with pt this morning: introduced self and role. Pt is a 68 year old who admitted the night of 11/15 after a fall resulting in a 3 part ankle fracture. Admitted to hospitalist service. Dr. Dawkins consulted with ortho: Dr. Schaeffer now plans to take pt to surgery this evening for a planned ORIF of ankle. Payer: Medicare. Pt states she also has Medicaid: will alert [facility] to same and for confirmation. Admission status: was in review much of yesterday: determination: INPT: confirmed by UR RN Richi. Pt confirms she does live by herself, understands she will need rehab and plans for a snf with goal to get home and get outside to enjoy the summer. SNF choice list: discussed: decision: [facility] as is only local facility: referral: Sara via phone discussion and efax. December anticipates acceptance when pt is stable for snf level care. P: check in tomorrow with pt and follow. Will bring her the [facility] brochure.
[2018-11-17] MEDS: SODIUM CHLORIDE 0.9% 1,000 ML 100 ML IV (10:07)
--- NOTE | 2018-11-17 11:05 | PT.IPTN ---
Current Diagnoses Other fracture of left lower leg, initial encounter for closed fracture (11/15/18) Physical Therapy Treatment Note M2 PT-IP Current Condition Start: 11/16/18 16:42 Freq: NEEDED Status: Active Protocol: Document 11/16/18 14:44 AB (Rec: 11/16/18 16:59 AB [id number]) Physical Therapy Current Condition Current Condition Evaluation Date 11/16/18 Treatment Diagnosis L trimalleolar ankle fx; difficulty in walking Onset Date 11/15/18 Precautions Brace pt has a L lower leg soft cast on Weight Bearing Status Weight Bearing Status Non-Weight Bearing Allowed Weight Bearing Amount (enter % NWB LLE or #) (%) M3 PT-IP Subjective Start: 11/16/18 16:42 Freq: NEEDED Status: Active Protocol: Document 11/17/18 11:05 GGD (Rec: 11/17/18 11:32 GGD [id number]) Subjective Physical Therapy Visit Type Type Patient Refusal Notes Pt refused states that she having pain and is having surgery today. =
--- NOTE | 2018-11-17 12:09 | PC.NURSE ---
Day shift: Called and left message on [employer] cell phone about the Pt's high BG. Reported that it is 348 for lunch. Pt is NPO now. Talked to meteorologist in charge Teresa and we will give the Novolog.
[2018-11-17] MEDS: POTASSIUM CHLORIDE 40 MEQ in SODIUM CHLORIDE 0.9% 500 ML 130 ML IV (13:29)
[2018-11-17] MEDS: CEFAZOLIN 1 GM/50 ML FROZ.PIGGY IV (17:03)
--- NOTE | 2018-11-17 17:32 | P.PN_ITS ---
Subjective Date Patient Seen: 11/17/18 Interval history: Hannah Kerr is a 68-year-old female with a past medical history significant for hypertension, hyperlipidemia, diabetes mellitus type 2, non- insulin using, and hypothyroidism who presented after ground level fall with left ankle deformity and pain. Admitted for trimalleolar fracture and further management. The patient is resting in bed comfortably. Her mother and friend are present in the room. She reports her pain now well controlled with oxycodone. She is now scheduled for surgery later today. She has no complaints and denies headache, lightheadedness or dizziness, shortness of breath, chest pain, abdominal pain, nausea, vomiting, fever, chills, dysuria, diarrhea or constipation. She is voiding and eliminating without difficulty. Exam Vital Signs (past 8 hours): - 11/17/18 12:16 11/17/18 15:25 11/17/18 16:52 Temperature 98.0 F Pulse Rate 86 Respiratory Rate 17 Blood Pressure 146/93 H Pulse Oximetry 94 98 97 Oxygen Delivery Method Room Air Oxygen Flow Rate 0 Narrative Exam Narrative: General: Middle-aged female sitting in bedside chair, mildly uncomfortable with movement but in no acute distress, well-developed, well-nourished, appropriately interactive. HEENT: Normocephalic, atraumatic. External ears without defect. Pupils equal, round, and reactive to light. Anicteric sclerae, moist conjunctivae, and no lid lag. Oropharynx free of erythema and cobble stoning with moist mucosa. Neck: Supple with full range of motion. No lymphadenopathy or thyromegaly. Cardiovascular: Regular rate and rhythm without murmurs, rubs, or gallops appreciated. Pulmonary: Clear to auscultation bilaterally without crackles, wheezes, or rhonchi. Normal respiratory effort with no use of accessory muscles. Abdomen: Soft, bowel sounds present, nontender, nondistended. No hepatosplenomegaly or masses appreciated. Extremities: No clubbing, cyanosis, or edema. Left leg in splint C/D/I. Vascularly intact. Skin: Normal temperature, turgor, and texture; no rash, ulcers, or subcutaneous nodules appreciated. Neurological: Cranial nerves grossly intact. Psychiatric: Normal mood and affect. Alert and oriented to person, place, and time. Objective Labs Result Diagrams: 11/17/18 06:12 11/17/18 06:12 Labs: Laboratory Results - last 24 hr 11/17/18 11/17/18 06:12 06:12 WBC 7.2 RBC 2.96 L Hgb 9.6 L Hct 27.6 L MCV 93.5 MCH 32.3 MCHC 34.6 RDW 12.3 Plt Count 294 Neut % (Auto) 46.3 L D Lymph % (Auto) 40.6 H D [place] % (Auto) 10.6 Eos % (Auto) 2.0 Baso % (Auto) 0.5 Neut # (Auto) 3300 Lymph # (Auto) 2900 [place] # (Auto) 800 Eos # (Auto) 100 Baso # (Auto) 0 Sodium 127 L Potassium 3.4 Chloride 89 L Carbon Dioxide 29 BUN 21 H Creatinine 1.10 H Estimated GFR 49.7 L BUN/Creatinine Ratio 19.1 Glucose 194 H D Calcium 9.5 Total Bilirubin 0.5 AST 44 H ALT 32 Alkaline Phosphatase 87 Total Protein 6.7 Albumin 3.6 Globulin 3.1 Albumin/Globulin Ratio 1.2 Assessment & Plan Assessment & Plan narrative: Hannah Kerr is a 68-year-old female with a past medical history significant for hypertension, hyperlipidemia, diabetes mellitus type 2, non- insulin using, and hypothyroidism who presented after ground level fall with left ankle deformity and pain. Admitted for trimalleolar fracture and further management. 1. Acute non-pathological trimalleolar fracture after ground level fall, present on admission. Active. -Status post reduction and splinting. -Continue close neurovascular checks. -Ordered Tylenol 650 mg every 6 hours as needed for mild pain, oxycodone 5-325 mg every 4 hours as needed for moderate pain, and morphine 2 mg IV every 6 hours as needed for severe pain. -Consulted Orthopedic surgery, Dr. Schaeffer, who plans to take patient to surgery later this afternoon. -Continue PT and OT evaluation and treatment. 2. Hyponatremia, acuity unclear, present on admission. Active. -Secondary to DM with significant hyperglycemic and dehydration. -Initial sodium 121 for which patient was asymptomatic. Sodium level increased to 127 today. -Continue normal saline 100 mL/hr until and after surgery. -Continue to monitor closely. 3. Hypertension, chronic, present on admission. Stable. -Not medically treated. BP slightly elevated due to acute pain. -Trend BP and treat pain. 4. Diabetes mellitus type 2, non-insulin using, present on admission. Stable. -Hemoglobin A1c 4.2%. There are individuals in which hemoglobin A1C is falsely low. Anemia can also falsely lower hemoglobin A1C. Ordered fructosamine to discern long-term glycemic control. -Continues to be significantly hyperglycemic likely due to DM type 2 versus stress response from acute fracture and pain. -Held metformin. -Patient was given regular insulin 10 units IV x1 due to significant hyperglycemia 428. Continue [facility] blood glucose checks and low-dose correctional scale insulin. -Continue Lantus 10 units daily at bedtime for tight glycemic control. May need to titrate up. -Continue heart healthy/carbohydrate consistent diet. 5. Hyperlipidemia, present on admission. Presumed stable. -Not medically treated. Disposition: Patient likely to discharge in several days to care home facility after trimalleolar fracture has been repaired and she is mobilizing with good pain control. Quality VTE Deep Vein Thrombosis/Pulmonary Embolism Present on Admission: No
[2018-11-17] MEDS: LACTATED RINGERS 1,000 ML 42 ML IV (19:00)
[2018-11-17] MEDS: CEFAZOLIN 1 GM VIAL IV (19:31)
--- NOTE | 2018-11-17 20:53 | PM.OP.1 ---
Operative Date/Time/Diagnoses Date of procedure: 11/17/18 Time of procedure: 20:53 Pre-op diagnosis: Closed displaced left trimalleolar ankle fracture Post-op diagnosis: same Procedure & Clinicians Procedure: Open reduction and internal fixation of medial and lateral malleolus fractures, left ankle Same procedure as scheduled: Yes Indications: The patient is a 68-year-old woman who suffered a fall and was unable to walk afterwards. Her ankle was deformed she was seen in the emergency room. She was initially to be discharged however was unable ambulate with crutches and therefore was admitted to the hospital. She is taken to the operating room for definitive open reduction internal fixation after discussion the risks benefits and alternatives. Risks discussed included but were not limited to: Failure of fixation, nerve damage, stiffness, infection, deep venous thrombosis, pulmonary embolism, stroke, myocardial infarction, permanent paralysis and . Surgeon: Fortino Schaeffer Click Yes if Unassisted: Yes Anesthesia Type: General, Peripheral nerve block and Local Operative Notes Findings: Extremely soft osteoporotic bone with a comminuted fracture. Closure Type: primary Specimen(s): none sent Prosthetic devices, grafts, tissues, transplants, or devices: Implants used in this procedure were manufactured by the [employer] and included a 6 hole 1/3 tubular side plate with 6 screws laterally 5 of the screws were cortical 1 was cancellous, two 40 mm partially-threaded cancellous screws were used medially Applied: cast(s) and implant(s) Estimated Blood Loss (mL): 25 Blood products transfused: none Tourniquet time (min): 47 Procedure in detail: The patient was seen in the preoperative area where she confirmed her left ankle was the operative site and her foot on this side was marked with my initials. She received preoperative antibiotics and was taken to the operating room and placed on the operating room table in the supine position. She underwent an ankle block and a general anesthetic. A tourniquet was placed about her proximal left thigh, her splint was removed and the ankle was prepared from the toes to the tourniquet with ChloraPrep in the usual fashion and draped through sterile drapes. The leg was elevated and exsanguinated with an Esmarch bandage. The tourniquet was inflated to 250 mm of mercury. An approximately 10 cm incision was centered over the fracture on the lateral aspect of the ankle and carried to the fracture with care being taken to try to avoid the superficial peroneal nerve. The fracture was identified, there was as a comminuted fragment that was removed as it was not attached to anything and the fracture was reduced with a reduction clamp. I initially placed a interfragmentary screw from anterior to posterior and removed the clamp our became evident that the screw was not holding the fracture well so the screw was removed and the fracture was maintained in a reduced position using the plate and the clamp. The screw holes were filled providing good fixation of the fracture although the bone was very soft. The lateral wound was irrigated and closed with 0 Vicryl in the fascial layer followed by 3 0 Vicryl in the subcutaneous layer. [place] were used for skin. The medial fracture was then approached using an approximately 4 cm incision. There were fracture blisters proximal to the site of the fracture and care was taken to avoid them with this incision. The bone was so soft on this side that the clamp would not hold in the bone proximally and therefore the fracture was held reduced manually and a drill bit was placed and left in position as a temporary fixation while a 2nd drill bit was placed posteriorly. The drill bits were then replaced with 40 mm partially-threaded cancellous screws. The position of the fracture and all hardware was verified as being appropriate on the AP and lateral views using fluoroscopy. The medial wound was irrigated and closed with 3 O Vicryl subcutaneous sutures and re for skin. 10 mL of 0.5% Marcaine was injected in the soft tissues around the incisions for postoperative pain control. Dressings of Xeroform on her fracture blisters and incisions were placed followed by 4x4s, abundant cast padding and a stirrup type splint. The tourniquet was deflated during dressing placement for total tourniquet time of 47 minutes. The patient was then taken to the recovery room in good condition having tolerated the procedure well. Complications: none Condition: stable Disposition: PACU Plan for aftercare: The patient will be maintained nonweightbearing in the splint for 2 weeks. She will then return to the clinic where the splint will be removed and the re removed. She will then be placed in a nonweightbearing cast for an additional 2 weeks. At that time she should be able to go into a removable orthosis and begin weight-bearing. After 4 additional weeks the removable orthosis will be discontinued.
--- NOTE | 2018-11-17 21:27 | SUR.PHASEI ---
Pt transferred to the floor. VS stable. IV saline locked, cap replaced. [place] cdi. Pt unable to wiggle toes. Report to Kalpesh
[2018-11-17] MEDS: INSULIN GLARGINE 100 UNIT/ML 3ML PEN 10 UNIT SUBCUT (21:34)
[2018-11-17] MEDS: LACTATED RINGERS 1,000 ML 125 ML IV (22:15)
[2018-11-17] MEDS: ACETAMINOPHEN 325 MG TABLET 975 MG PO (22:15)
[2018-11-17] MEDS: ASPIRIN EC 81 MG TABLET PO (22:30)
[2018-11-18] VITALS (12 sets, daily range): BP systolic 141–155; BP diastolic 77–95; PULSE 81–95; RESP 16–20; TEMP 36.7–37.8; O2SAT 96–100
[2018-11-18 06:51] LABS: Hematocrit 24.7 % (36-46); Hemoglobin 8.4 g/dL (12.0-16.0); Mean Corpuscular HGB Conc 33.9 % (30-36); Mean Corpuscular Hemoglobin 32.1 PG (26-34); Mean Corpuscular Volume 94.7 fL (80-100); Platelet Count 275 X10^3/uL (150-400); Red Blood Cell Count 2.61 X10^6/uL (4.0-5.2); Red Cell Distribution Width 12.1 % (11.6-14.8); White Blood Cell Count 7.3 X10^3/uL (4.5-11.0)
[2018-11-18] MEDS: POLYETHYLENE GLYCOL 3350 17 GM POWD.PACK PO (08:57)
[2018-11-18] MEDS: ACETAMINOPHEN 325 MG TABLET 975 MG PO ×3 (08:58→19:56)
[2018-11-18] MEDS: ASPIRIN EC 81 MG TABLET PO ×2 (08:59→21:20)
[2018-11-18] MEDS: METFORMIN HCL 500 MG TABLET 1000 MG PO ×2 (09:00→18:07)
[2018-11-18] MEDS: INSULIN ASPART 100 UNIT/ML INSULN PEN SUBCUT ×4 (09:01→21:22)
--- NOTE | 2018-11-18 10:20 | PT.IPRE ---
Current Diagnoses Other fracture of left lower leg, initial encounter for closed fracture (11/15/18) Surgery Performed Operation Date: 11/17/18 18:30 Actual Procedures p ORIF Ankle Fracture(Left) - Fortino Schaeffer MD Surgical History (Last Reviewed 11/16/18 @ 17:23 by Fortino Schaeffer MD) History of carpal tunnel repair (1997) Medical History (Last Reviewed 11/16/18 @ 17:23 by Fortino Schaeffer MD) Diabetes (Chronic) Hyperlipidemia (Chronic ~07/2016) Hypertension (Chronic) Hypothyroidism (Chronic ~07/2016) Carpal tunnel syndrome (Resolved ~1997) Wrist fracture, right (Resolved 11/2016) Physical Therapy Inpatient Evaluation/Re-Eval M1 PT/OT-IP Prior Functional Status Start: 11/16/18 16:42 Freq: NEEDED Status: Active Protocol: Document 11/18/18 10:20 AB (Rec: 11/18/18 12:30 AB [id number]) Medical Review Prior Functional Status Medical History Reviewed Yes Communication able to make needs known Mobility and Gait pt stated that she is indpendent with all mobilities and ambulation without AD Social History Household Members none Living Arrangements House Number of Floors (Floors) 3 or More Floors Number of Stairs To Enter/Railing? 8 steps R rail ascending to enter 7 steps with bilateral rails to 2nd floor bedroom 6 steps L rail descending to laundry room in basement Home Environment Standard Height Toilet Tub/Shower Doors Home Equipment Crutches Employment Status Retired M2 PT-IP Current Condition Start: 11/16/18 16:42 Freq: NEEDED Status: Active Protocol: Document 11/18/18 10:20 AB (Rec: 11/18/18 12:30 AB [id number]) Physical Therapy Current Condition Current Condition Evaluation Date 11/18/18 Treatment Diagnosis s/p L ankle ORIF; difficulty in walking Onset Date 11/15/18 Precautions Brace L lower leg on a cast Weight Bearing Status Weight Bearing Status Non-Weight Bearing Allowed Weight Bearing Amount (enter % LLE or #) (%) M3 PT-IP Subjective Start: 11/16/18 16:42 Freq: NEEDED Status: Active Protocol: Document 11/18/18 10:20 AB (Rec: 11/18/18 12:30 AB [id number]) Subjective Physical Therapy Visit Type Type Re-Evaluation Visit Start Time 10:20 Visit Stop Time 10:45 Total Visit Minutes 25 Number of SEPARATOR INSERTER Visits 0 Physical Therapy Visit Comments Patient Comments pt agreeable to do PT Therapy Pain Assessment Pain Present Pain Present Denied Pain M4 PT-IP Mobility and Gait Start: 11/16/18 16:42 Freq: NEEDED Status: Active Protocol: Document 11/18/18 10:20 AB (Rec: 11/18/18 12:30 AB [id number]) PT-Bed Mobility Assessment Supine to Sit Supine to Sit Standby Assistance Scooting Scooting to Edge of Bed Standby Assistance PT-Transfer Assessment Sit to and From Stand Sit to and from Stand Moderate Assistance 1 Person Assistance Equipment Transfer Assistive Device Gait Belt Front Wheeled Walker Orthotic/Prosthetic Devices or Brace: Yes Transfers Transfer Destination Chair Transfer Technique Stand Step Pivot Transfer Ability Level of Assist Moderate Assistance Comments Mobility Comments pt can be impulsvie and requires cues to slow down. pt was able to maintain NWB on LLE. Gait Assessment Gait Gait Assistance Required: Moderate Assistance Distance (Feet) 5 Able to Maintain Weight Bearing Status Yes During Gait Assistive Devices Assistive Device Gait Belt Front Wheeled Walker Orthotic/Prosthetic Devices or Brace: Yes Factors Limiting Gait Function Factors Limiting Gait Function Decreased Activity Tolerance Decreased Sensation Decreased Strength Limited Range of Motion Poor Balance Poor Safety Awareness PT-Balance Assessment Sitting Balance and Reactions Static Sitting Balance Ability Good Dynamic Sitting Balance Ability Good Standing Balance and Reactions Static Standing Balance Ability Fair Dynamic Standing Balance Ability Fair Device Used FWW M5 PT-IP Objective Assessments Start: 11/16/18 16:42 Freq: NEEDED Status: Active Protocol: Document 11/18/18 10:20 AB (Rec: 11/18/18 12:30 AB [id number]) Orientation Orientation/Cognition Level of Alertness Alert Orientation Name Place Situation Safety Awareness Decreased Safety Awareness Memory Description Short Term Impaired Gross Range of Motion Lower Extremity ROM Assessment Left Impaired Impairments L ankle on a cast Strength Lower Extremity Strength Assessment Left Impaired Hip 4-/5 Knee 3+/5 Sensation Assessment Sensation Gross Sensation Left LE Impaired Sensation Description Numbness Muscle Tone Muscle Tone WNL Yes M6 PT-IP Treatment Start: 11/16/18 16:42 Freq: NEEDED Status: Active Protocol: Document 11/18/18 10:20 AB (Rec: 11/18/18 12:30 AB [id number]) Physical Therapy Treatment Education Education Provided Precautions Weight Bearing Status Safety M7 PT-IP Assessment and Plan Start: 11/16/18 16:42 Freq: NEEDED Status: Active Protocol: Document 11/18/18 10:20 AB (Rec: 11/18/18 12:30 AB [id number]) PT Summary Assessment and Plan Potential Rehabilitation Potential Good Status of Condition at Evaluation Stable Summary Impairments Pain ROM Strength Balance Coordination Sensation Tone Cognition Bed Mobility Transfers Gait Activity Tolerance Assessment Summary pt stated that she does not have pain but LLE foot continues to feel numb. pt requires mod A with mobility and has decrease safety awareness affecting functional independence. Pt will require SNF rehab to improve strength and mobility. Goals Bed Mobility Goal Independent Transfer Goal Standby Assistance Front Wheeled Walker Gait Goal Standby Assistance Front Wheel Walker Gait Distance 25 Days to Meet Goals 5 Frequency of Treatment Frequency Of Treatment Twice a Day Treatment Plan Physical Therapy Treatment Plan Bed Mobility Training Transfer Training Gait Training Therapeutic Exercise Balance Retraining Post Op Education Discharge Planning Hot or Cold Pack Neuromuscular Re-ed Coordination Retraining Manual Therapy Recommendations To Nursing Amount of Assist Needed 2 Person Assist Discharge Recommendations PT Discharge Recommendations SNF Rehab
--- NOTE | 2018-11-18 10:46 | PM.PN.1 ---
Subjective Date Patient Seen: 11/18/18 Time Patient Seen: 10:46 Interval history: She is seen today to follow-up for left ankle fracture, diabetes mellitus type 2, postoperative anemia, hyponatremia. Her hemoglobin has dropped steadily from 11.9 on admission to 8.4 this morning on postoperative day 1. The blood pressure is 155/82. Her insulin dosing has been adjusted to account for higher blood sugars postoperatively. Her epidural is working well for her pain. She tells me that she lives alone in her house in [place]. Family members are visiting. Sodium is 127. Exam Vital Signs (past 8 hours): - 11/18/18 05:00 11/18/18 05:43 11/18/18 07:50 Temperature 98.1 F 98.2 F Pulse Rate 95 H 85 Respiratory Rate 20 16 Blood Pressure 155/82 H 149/84 H Pulse Oximetry 98 99 99 11/18/18 08:36 Temperature Pulse Rate Respiratory Rate Blood Pressure Pulse Oximetry 96 Oxygen Delivery Method Room Air Oxygen Flow Rate 0 Narrative Exam Narrative: She is alert and oriented x3. No apparent distress. Heart is regular rate and rhythm without murmur. Lungs are clear to auscultation bilaterally. Extremities have no ankle edema. She does have a cast on the left leg. Objective Labs Result Diagrams: 11/18/18 06:08 11/17/18 06:12 Labs: Laboratory Results - last 24 hr 11/18/18 06:08 WBC 7.3 RBC 2.61 L Hgb 8.4 L Hct 24.7 L MCV 94.7 MCH 32.1 MCHC 33.9 RDW 12.1 Plt Count 275 Assessment & Plan Assessment & Plan narrative: 1. Acute pathological trimalleolar fracture after ground level fall, secondary to osteoporosis, present on admission. Active. -Status post ORIF yesterday Dr. Schaeffer -Continue Tylenol 650 mg every 6 hours as needed for mild pain, oxycodone 5-325 mg every 4 hours as needed for moderate pain, and morphine 2 mg IV every 6 hours as needed for severe pain. -Continue PT and OT evaluation and treatment. -she will need anticoagulation to be started as soon as surgically safe. Plan for aftercare: The patient will be maintained nonweightbearing in the splint for 2 weeks. She will then return to the clinic where the splint will be removed and the re removed. She will then be placed in a nonweightbearing cast for an additional 2 weeks. At that time she should be able to go into a removable orthosis and begin weight-bearing. After 4 additional weeks the removable orthosis will be discontinued. 2. Hyponatremia, acuity unclear, present on admission. Active. -Secondary to DM with significant hyperglycemic and dehydration. -Initial sodium 121 for which patient was asymptomatic. Sodium level increased to 127 today. -Continue Dietary correction -Continue to monitor closely. 3. Hypertension, chronic, present on admission. Stable. -Not medically treated. BP slightly elevated due to acute pain. -Trend BP and treat pain. 4. Diabetes mellitus type 2, non-insulin using, present on admission. Stable. -Hemoglobin A1c 4.2%. There are individuals in which hemoglobin A1C is falsely low. Anemia can also falsely lower hemoglobin A1C. Ordered fructosamine to refine understanding of recent glycemic control. -Continues to be significantly hyperglycemic likely due to DM type 2 versus stress response from acute fracture and pain. -Held metformin. -Continue ACHS blood glucose checks and low-dose correctional scale insulin. -Continue Lantus 10 units daily at bedtime for tight glycemic control. May need to titrate up. -Continue heart healthy/carbohydrate consistent diet. 5. Hyperlipidemia, present on admission. Presumed stable. -Not medically treated. Disposition: Patient likely to discharge in several days to residential facility Quality VTE Deep Vein Thrombosis/Pulmonary Embolism Present on Admission: No
--- NOTE | 2018-11-18 11:45 | PT.IPTN ---
Current Diagnoses Other fracture of left lower leg, initial encounter for closed fracture (11/15/18) Surgery Performed Operation Date: 11/17/18 18:30 Actual Procedures p ORIF Ankle Fracture(Left) - Fortino Schaeffer MD Physical Therapy Treatment Note M2 PT-IP Current Condition Start: 11/16/18 16:42 Freq: NEEDED Status: Active Protocol: Document 11/18/18 10:20 AB (Rec: 11/18/18 12:30 AB [id number]) Physical Therapy Current Condition Current Condition Evaluation Date 11/18/18 Treatment Diagnosis s/p L ankle ORIF; difficulty in walking Onset Date 11/15/18 Precautions Brace L lower leg on a cast Weight Bearing Status Weight Bearing Status Non-Weight Bearing Allowed Weight Bearing Amount (enter % LLE or #) (%) M3 PT-IP Subjective Start: 11/16/18 16:42 Freq: NEEDED Status: Active Protocol: Document 11/18/18 11:45 AB (Rec: 11/18/18 14:52 AB [id number]) Subjective Physical Therapy Visit Type Type Treatment Note Visit Start Time 11:45 Visit Stop Time 12:00 Total Visit Minutes 15 Number of SENIOR MANAGER Visits 0 Physical Therapy Visit Comments Patient Comments pt requested to use the commode Therapy Pain Assessment Pain Present Pain Present Denied Pain M4 PT-IP Mobility and Gait Start: 11/16/18 16:42 Freq: NEEDED Status: Active Protocol: Document 11/18/18 11:45 AB (Rec: 11/18/18 14:52 AB [id number]) PT-Transfer Assessment Sit to and From Stand Sit to and from Stand Moderate Assistance 1 Person Assistance Use of Upper Extremities Equipment Transfer Assistive Device Gait Belt Front Wheeled Walker Orthotic/Prosthetic Devices or Brace: Yes Transfers Transfer Destination Chair Bedside Commode Transfer Technique Stand Step Pivot Transfer Ability Level of Assist Moderate Assistance 1 Person Assistance Use of Upper Extremities Comments Mobility Comments pt completed sit to stand from the chair mod A and cues for techniques and safety. pt continues to be impulsive. pt completed step pivot transfer bed to bedside commode mod A and cues. pt was able to maintain standing using FWW for support min A while NAC assisted pt with hygiene care and brief management. Pt transferred back to the chair using FWW mod A and cues. pt agreed to stay up on the chair for lunch. Gait Assessment Assistive Devices Assistive Device Front Wheeled Walker M5 PT-IP Objective Assessments Start: 11/16/18 16:42 Freq: NEEDED Status: Active Protocol: Document 11/18/18 10:20 AB (Rec: 11/18/18 12:30 AB [id number]) Orientation Orientation/Cognition Level of Alertness Alert Orientation Name Place Situation Safety Awareness Decreased Safety Awareness Memory Description Short Term Impaired Gross Range of Motion Lower Extremity ROM Assessment Left Impaired Impairments L ankle on a cast Strength Lower Extremity Strength Assessment Left Impaired Hip 4-/5 Knee 3+/5 Sensation Assessment Sensation Gross Sensation Left LE Impaired Sensation Description Numbness Muscle Tone Muscle Tone WNL Yes M6 PT-IP Treatment Start: 11/16/18 16:42 Freq: NEEDED Status: Active Protocol: Document 11/18/18 11:45 AB (Rec: 11/18/18 14:52 AB [id number]) Physical Therapy Treatment Education Education Provided Weight Bearing Status Safety M7 PT-IP Assessment and Plan Start: 11/16/18 16:42 Freq: NEEDED Status: Active Protocol: Document 11/18/18 11:45 AB (Rec: 11/18/18 14:52 AB [id number]) PT Summary Assessment and Plan Potential Rehabilitation Potential Fair Summary Impairments Pain ROM Strength Balance Coordination Sensation Tone Cognition Bed Mobility Transfers Gait Activity Tolerance Progress Towards Goals Slow Progress - Other Assessment Summary pt requiring mod A with mobility. pt lives alone and lives on a 3 level house. pt currently is NWB on LLE and will not be safe to go home at this time. pt will require SNF rehab to improve mobility. Goals Bed Mobility Goal Independent Transfer Goal Standby Assistance Front Wheeled Walker Gait Goal Standby Assistance Front Wheel Walker Gait Distance 25 Days to Meet Goals 5 Frequency of Treatment Frequency Of Treatment Twice a Day Treatment Plan Physical Therapy Treatment Plan Bed Mobility Training Transfer Training Gait Training Therapeutic Exercise Balance Retraining Post Op Education Discharge Planning Hot or Cold Pack Neuromuscular Re-ed Coordination Retraining Manual Therapy Recommendations To Nursing Amount of Assist Needed 2 Person Assist Discharge Recommendations PT Discharge Recommendations SNF Rehab
--- NOTE | 2018-11-18 15:40 | OT.IP.EVAL ---
Current Diagnoses Other fracture of left lower leg, initial encounter for closed fracture (11/15/18) Surgery Performed Operation Date: 11/17/18 18:30 Actual Procedures p ORIF Ankle Fracture(Left) - Fortino Schaeffer MD Past Medical History (Last Reviewed 11/16/18 @ 17:23 by Fortino Schaefefr MD) Diabetes (Chronic) Hyperlipidemia (Chronic ~07/2016) Hypertension (Chronic) Hypothyroidism (Chronic ~07/2016) Carpal tunnel syndrome (Resolved ~1997) Wrist fracture, right (Resolved 11/2016) Surgical History (Last Reviewed 11/16/18 @ 17:23 by Fortino Schaeffer MD) History of carpal tunnel repair (1997) Occupational Therapy Inpatient Evaluation/Re-Eval M1 PT/OT-IP Prior Functional Status Start: 11/18/18 13:27 Freq: NEEDED Status: Active Protocol: Document 11/18/18 15:12 [facility] (Rec: 11/18/18 15:40 [facility] [id number]) Medical Review Prior Functional Status Medical History Reviewed Yes Communication able to make needs known Mobility and Gait pt stated that she is indpendent with all mobilities and ambulation without AD Social History Household Members none Living Arrangements House Number of Floors (Floors) 3 or More Floors Number of Stairs To Enter/Railing? 8 steps R rail ascending to enter 7 steps with bilateral rails to 2nd floor bedroom 6 steps L rail descending to laundry room in basement Home Environment Standard Height Toilet Tub/Shower Doors Home Equipment Crutches Employment Status Retired M2 OT-IP Current Condition Start: 11/18/18 13:27 Freq: Status: Active Protocol: Document 11/18/18 15:12 [facility] (Rec: 11/18/18 15:40 [facility] [id number]) Occupational Therapy Current Condition Current Condition Evaluation Date 11/18/18 Treatment Diagnosis S/P left ankle ORIF Diagnosis Onset Date 11/15/18 Weight Bearing Status Weight Bearing Status Non-Weight Bearing M3 OT- IP Subjective and Pain Start: 11/18/18 13:27 Freq: Status: Active Protocol: Document 11/18/18 15:12 [facility] (Rec: 11/18/18 15:40 [facility] [email or web address]) OT- Subjective Occupational Therapy Visit Type Type Initial Evaluation Visit Start Time 10:25 Visit Stop Time 10:50 Total Visit Minutes 25 Occupational Therapy Visit Comments Patient Comments Pt willing to get up to the recliner. OT Pain Assessment Pain When Pain Assessed At Rest Pain Present Pain Present Denied Pain M4 OT- IP ADL's Start: 11/18/18 13:27 Freq: Status: Active Protocol: Document 11/18/18 15:12 [facility] (Rec: 11/18/18 15:40 [facility] [email or web address]) OT ADL-Grooming General Evaluation Grooming Ability Standby Assistance Areas Needing Assistance Retrieving/Set-up of Grooming Items Comments OT Grooming Comments Pt able to do all grooming needs while sitting from the recliner. OT ADL-Oral Care General Eval Oral Care Ability Independent OT ADL-Dressing General Eval Lower Body Dressing Ability Maximum Assistance Areas Needing Assistance Socks OT ADL-Toileting Comments OT Toileting Comments Pt will need two person assist to transfer to [facility] as one person to stand pt and another for brief management needs. M5 OT- IP IADL's Start: 11/18/18 13:27 Freq: Status: Active Protocol: Document 11/18/18 15:12 [facility] (Rec: 11/18/18 15:40 [facility] [email or web address]) OT-Instrumental Activities of Daily Living Home Safety Awareness Home Safety Comments Prior pt was comlpetely independent for all needs, at this time pt has some confusion and difficulty to follow directions, therefore not recommended to go home alone and have skilled rehab prior. M6 OT- IP Functional Cognition Start: 11/18/18 13:27 Freq: Status: Active Protocol: Document 11/18/18 15:12 [facility] (Rec: 11/18/18 15:40 [facility] [email or web address]) Cognitive Factors Limiting Selfcare Function Cognitive Ability Level of Alertness Alert Confusional State Patient Orientation Name Place Situation Attention Span Ability Capable of Focused Attention Capable of Sustained Attention Unable to Sustain Attention Ability to Follow Commands Able to Follow One Step Commands with Increased Time Able to Follow One Step Commands with Repetition Memory Description Short Term Impaired Safety Awareness Underestimates Need for Assistance Problem Solving Ability Unable to Identify Errors Needs Assist to Identify Solutions Cognitive Comments Cognitive Assessment Comments Pt needing concrete commands, slow to process informations, and at times confused. [place] place in front of pt and pt for a moment did not realize what is was used for, What is this? Pt needs step by step instructions for safety with bed mobility, hand placement, and FWW safety. Chair alarm obtained for pt. OT- Vision and Hearing OT- Hearing Assessment OT- Hearing Assessment WFL OT- Vision Assessment Visual Acuity WFL M7 OT- IP Mobility and Balance Start: 11/18/18 13:27 Freq: Status: Active Protocol: Document 11/18/18 15:12 [facility] (Rec: 11/18/18 15:40 [facility] [email or web address]) OT- Bed Mobility Assessment Rolling Type of Rolling Roll to Left Level of Assistance Standby Assistance 1 Person Assistance Supine to Sit Supine to Sit Assist Standby Assistance 1 Person Assistance OT-Transfer Assessment Sit to and From Stand Sit to and from Stand Moderate Assistance 1 Person Assistance Transfers Transfer Ability Moderate Assistance 1 Person Assistance Technique Transfer Destination Chair Transfer Technique Stand Step Pivot Devices Transfer Assistive Devices Gait Belt Front Wheeled Walker Comments Mobility Comments Pt able to follow NWB for LLE with cues and transfer with MODA X 1. OT- Balance Assessment Sitting Balance and Reactions Static Sitting Balance Ability Normal Dynamic Sitting Balance Ability Good Standing Balance and Reactions Static Standing Balance Ability Poor M8 OT- IP Objective Assessments Start: 11/18/18 13:27 Freq: Status: Active Protocol: Document 11/18/18 15:12 [facility] (Rec: 11/18/18 15:40 [facility] [id number]) OT Gross Range of Motion Upper Extremity Range of Motion Assessment Within Functional Limits ROM Impairments Arthritic changes in hands. OT Strength Comments Strength Comments BUE 4-/5 M9 OT- IP Assessment and Plan Start: 11/18/18 13:27 Freq: Status: Active Protocol: Document 11/18/18 15:12 [facility] (Rec: 11/18/18 15:40 [facility] [email or web address]) OT Summary Assessment and Plan Potential Rehabilitation Potential Good Analytic Complexity at Evaluation Low Summary OT Impairments Functional Cognition Functional Mobility Dressing Toileting Bathing Toilet Transfers Shower Transfers Progress Towards Goals Slow Progress due to Activity Tolerance Slow Progress due to Cognition Assessment Summary Pt low complexity and main barriers are multiple steps and home and due to NWB for LLE needing two person assist for toileting and dressing needs. In addition, pt having difficulty with following directions at thsi time. Pt would benefit from skilled rehab as prior pt was completely independent with all needs. Goals Dressing Goal Minimal Assistance Toileting Goal Minimal Assistance Bathing Goal Moderate Assistance Toilet Transfer Goal Contact Guard Assistance Shower Transfer Goal Moderate Assistance Days to Meet Goals 5 Frequency of Treatment Frequency Of Treatment Once a Day Treatment Plan OT Treatment Plan ADL Training Functional Cognition Training Functional Mobility Patient/Family Education Discharge Planning Other Treatment Recommendations and Next LB dressing education, Treatment Focus transfer to BSC Discharge Recommendations OT Discharge Recommendations SNF Rehab Home Equipment Needs defer to SNF
[2018-11-18] MEDS: OXYCODONE IR 5 MG TABLET PO ×2 (19:55→23:28)
[2018-11-18] MEDS: INSULIN GLARGINE 100 UNIT/ML 3ML PEN 10 UNIT SUBCUT (21:23)
[2018-11-19] VITALS (8 sets, daily range): BP systolic 142–175; BP diastolic 85–98; PULSE 82–88; RESP 17–19; TEMP 36.8–37; O2SAT 97–100
[2018-11-19] MEDS: OXYCODONE IR 5 MG TABLET PO ×5 (02:10→15:05)
[2018-11-19 06:18] LABS: Add Manual Diff / Slide Review NO; Basophils Absolute Auto 0 /uL (0-100); Basophils Percent Auto 0.5 % (0-2); Eosinophils Absolute Auto 200 /uL (0-450); Hematocrit 23.5 % (36-46); Lymphocytes Absolute Auto 2800 /uL (1100-4500); Lymphocytes Percent Auto 34.4 % (25-40); Mean Corpuscular HGB Conc 33.9 % (30-36); Mean Corpuscular Hemoglobin 32.2 PG (26-34); Monocytes Absolute Auto 1200 /uL (0-900); Monocytes Percent Auto 14.5 % (3-14); Neutrophils Absolute Auto 3900 /uL (1500-7000); Neutrophils Percent Auto 47.6 % (50-75); Platelet Count 286 X10^3/uL (150-400); Red Blood Cell Count 2.48 X10^6/uL (4.0-5.2); Red Cell Distribution Width 12.3 % (11.6-14.8); White Blood Cell Count 8.1 X10^3/uL (4.5-11.0)
[2018-11-19 06:22] LABS: Blood Urea Nitrogen 13 mg/dL (7-17); Calcium 8.4 mg/dL (8.4-10.2); Carbon Dioxide 26 mmol/L (22-32); Chloride 99 mmol/L (98-107); Estimated Glomerular Filt Rate 55.5 mL/min (>60); Glucose 177 mg/dL (80-110); HEMOLYSIS < 15 (0-50); Potassium 3.9 mmol/L (3.4-5.1); Sodium 131 mmol/L (137-145)
--- NOTE | 2018-11-19 08:36 | P.PN_ITS ---
Subjective Date Patient Seen: 11/19/18 Time Patient Seen: 08:35 Interval history: POD #2 s/p OIF Trimalleolar fracture with Dr. Schaeffer. Her block wore off last night and is complaining of pain again. She has been up with PT. She is planning to DC to [facility]. Exam Vital Signs (past 8 hours): - 11/19/18 00:46 11/19/18 04:00 11/19/18 05:12 Temperature 98.6 F 98.6 F Pulse Rate 82 87 Respiratory Rate 17 17 Blood Pressure 145/85 H 151/95 H Pulse Oximetry 99 97 100 Oxygen Delivery Method Room Air Oxygen Flow Rate 0 Narrative Exam Narrative: Patient sitting up in bed in NAD. She is alert and oriented X3. Splint on left leg is intact and well fitting. Sensation intact and brisk capillary refill of toes. Objective Labs Result Diagrams: 11/19/18 05:48 11/19/18 05:48 Labs: Laboratory Results - last 24 hr 11/19/18 11/19/18 05:48 05:48 WBC 8.1 RBC 2.48 L Hgb 8.0 L Hct 23.5 L MCV 95.0 MCH 32.2 MCHC 33.9 RDW 12.3 Plt Count 286 Neut % (Auto) 47.6 L Lymph % (Auto) 34.4 [place] % (Auto) 14.5 H Eos % (Auto) 3.0 Baso % (Auto) 0.5 Neut # (Auto) 3900 Lymph # (Auto) 2800 [place] # (Auto) 1200 H Eos # (Auto) 200 Baso # (Auto) 0 Sodium 131 L Potassium 3.9 Chloride 99 Carbon Dioxide 26 BUN 13 Creatinine 1.00 Estimated GFR 55.5 L BUN/Creatinine Ratio 13.0 Glucose 177 H Calcium 8.4 Assessment & Plan Post-op (1) Ankle fracture, left: Postoperative Procedures Operation Date: 11/17/18 18:30 Actual Procedures Side Surgeon p ORIF Ankle Fracture Left Fortino Schaeffer MD Plan to DC to [facility] today. The patient will be maintained nonweightbearing in the splint for 2 weeks. She will then return to the clinic where the splint will be removed and the re removed. She will then be placed in a nonweightbearing cast for an additional 2 weeks. At that time she should be able to go into a removable orthosis and begin weight-bearing. After 4 additional weeks the removable orthosis will be discontinued. Quality VTE Deep Vein Thrombosis/Pulmonary Embolism Present on Admission: No
--- NOTE | 2018-11-19 09:21 | PT.IPTN ---
Current Diagnoses Other fracture of left lower leg, initial encounter for closed fracture (11/15/18) Surgery Performed Operation Date: 11/17/18 18:30 Actual Procedures p ORIF Ankle Fracture(Left) - Fortino Schaeffer MD Physical Therapy Treatment Note M2 PT-IP Current Condition Start: 11/16/18 16:42 Freq: NEEDED Status: Active Protocol: Document 11/18/18 10:20 AB (Rec: 11/18/18 12:30 AB [id number]) Physical Therapy Current Condition Current Condition Evaluation Date 11/18/18 Treatment Diagnosis s/p L ankle ORIF; difficulty in walking Onset Date 11/15/18 Precautions Brace L lower leg on a cast Weight Bearing Status Weight Bearing Status Non-Weight Bearing Allowed Weight Bearing Amount (enter % LLE or #) (%) M3 PT-IP Subjective Start: 11/16/18 16:42 Freq: NEEDED Status: Active Protocol: Document 11/19/18 09:21 AB (Rec: 11/19/18 10:54 AB [id number]) Subjective Physical Therapy Visit Type Type Treatment Note Visit Start Time 09:21 Visit Stop Time 09:39 Total Visit Minutes 18 Number of SHAFT REPAIRER Visits 0 Physical Therapy Visit Comments Patient Comments pt agreeable to do PT Therapy Pain Assessment Pain When Pain Assessed At Rest Pain Present Pain Present Pain Reported Location left ankle Intensity 4 Scale Used Numeric (1 - 10) Pain Management Techniques Re-positioning Timing of Activity with Medications M4 PT-IP Mobility and Gait Start: 11/16/18 16:42 Freq: NEEDED Status: Active Protocol: Document 11/19/18 09:21 AB (Rec: 11/19/18 10:54 AB [id number]) PT-Transfer Assessment Sit to and From Stand Sit to and from Stand Contact Guard Assistance Minimal Assistance Equipment Transfer Assistive Device Gait Belt Front Wheeled Walker Orthotic/Prosthetic Devices or Brace: Yes Transfers Transfer Destination Chair Transfer Technique Stand Step Pivot Transfer Ability Level of Assist Minimal Assistance Comments Mobility Comments pt requiries CGA to min A with sit to stand with cues for safety. pt can be impulsive. completed sit <>stand x 5 reps requiring min A initially but after 3 reps was able to complete with CGA. Gait Assessment Gait Gait Assistance Required: Minimum Assistance Distance (Feet) 2 Able to Maintain Weight Bearing Status Yes During Gait Assistive Devices Assistive Device Gait Belt Front Wheeled Walker Factors Limiting Gait Function Factors Limiting Gait Function Decreased Activity Tolerance Decreased Strength Difficulty Following Directions Limited Range of Motion Pain Poor Balance Poor Safety Awareness Comments Gait Comments able to take steps during transfers ~ 6 steps using FWW min A and cues. M5 PT-IP Objective Assessments Start: 11/16/18 16:42 Freq: NEEDED Status: Active Protocol: Document 11/18/18 10:20 AB (Rec: 11/18/18 12:30 AB [id number]) Orientation Orientation/Cognition Level of Alertness Alert Orientation Name Place Situation Safety Awareness Decreased Safety Awareness Memory Description Short Term Impaired Gross Range of Motion Lower Extremity ROM Assessment Left Impaired Impairments L ankle on a cast Strength Lower Extremity Strength Assessment Left Impaired Hip 4-/5 Knee 3+/5 Sensation Assessment Sensation Gross Sensation Left LE Impaired Sensation Description Numbness Muscle Tone Muscle Tone WNL Yes M6 PT-IP Treatment Start: 11/16/18 16:42 Freq: NEEDED Status: Active Protocol: Document 11/19/18 09:21 AB (Rec: 11/19/18 10:54 AB [id number]) Physical Therapy Treatment Education Education Provided Precautions Safety M7 PT-IP Assessment and Plan Start: 11/16/18 16:42 Freq: NEEDED Status: Active Protocol: Document 11/19/18 09:21 AB (Rec: 11/19/18 10:54 AB [id number]) PT Summary Assessment and Plan Potential Rehabilitation Potential Good Summary Impairments Pain ROM Strength Balance Coordination Sensation Tone Cognition Bed Mobility Transfers Gait Activity Tolerance Progress Towards Goals Slow Progress - Other Assessment Summary pt progressing with mobility but continues to require min A and cues for safety. pt will benefit from SNF rehab to improve strength and function. Goals Bed Mobility Goal Independent Transfer Goal Standby Assistance Front Wheeled Walker Gait Goal Standby Assistance Front Wheel Walker Gait Distance 25 Days to Meet Goals 5 Frequency of Treatment Frequency Of Treatment Twice a Day Treatment Plan Physical Therapy Treatment Plan Bed Mobility Training Transfer Training Gait Training Therapeutic Exercise Balance Retraining Post Op Education Discharge Planning Hot or Cold Pack Neuromuscular Re-ed Coordination Retraining Manual Therapy Recommendations To Nursing Amount of Assist Needed 1 Person Assist Discharge Recommendations PT Discharge Recommendations SNF Rehab
[2018-11-19] MEDS: ACETAMINOPHEN 325 MG TABLET 975 MG PO ×2 (09:40→15:05)
[2018-11-19] MEDS: METFORMIN HCL 500 MG TABLET 1000 MG PO (09:41)
[2018-11-19] MEDS: ASPIRIN EC 81 MG TABLET PO (09:41)
[2018-11-19] MEDS: POLYETHYLENE GLYCOL 3350 17 GM POWD.PACK PO (09:41)
[2018-11-19] MEDS: INSULIN ASPART 100 UNIT/ML INSULN PEN SUBCUT ×2 (09:42→12:34)
--- NOTE | 2018-11-19 10:32 | OT.IP.TRT ---
Current Diagnoses Other fracture of left lower leg, initial encounter for closed fracture (11/15/18) Surgery Performed Operation Date: 11/17/18 18:30 Actual Procedures p ORIF Ankle Fracture(Left) - Fortino Schaeffer MD Occupational Therapy Treatment Note M2 OT-IP Current Condition Start: 11/18/18 13:27 Freq: Status: Active Protocol: Document 11/18/18 15:12 [facility] (Rec: 11/18/18 15:40 [facility] [id number]) Occupational Therapy Current Condition Current Condition Evaluation Date 11/18/18 Treatment Diagnosis S/P left ankle ORIF Diagnosis Onset Date 11/15/18 Weight Bearing Status Weight Bearing Status Non-Weight Bearing M3 OT- IP Subjective and Pain Start: 11/18/18 13:27 Freq: Status: Active Protocol: Document 11/19/18 10:23 [facility] (Rec: 11/19/18 10:32 [facility] [id number]) OT- Subjective Occupational Therapy Visit Type Type Treatment Note Visit Start Time 10:07 Visit Stop Time 10:22 Total Visit Minutes 15 Occupational Therapy Visit Comments Patient Comments Pt not wanting to shower but open to get up to brush her teeth at the sink. Patient/Caregiver Goals Pt wanting and feels ready to go to skilled rehab today. OT Pain Assessment Pain When Pain Assessed At Rest Pain Present Pain Present Pain Reported Location left ankle Intensity 2 Scale Used Numeric (1 - 10) M4 OT- IP ADL's Start: 11/18/18 13:27 Freq: Status: Active Protocol: Document 11/19/18 10:23 [facility] (Rec: 11/19/18 10:32 [facility] [id number]) OT ADL-Grooming General Evaluation Grooming Ability Standby Assistance Areas Needing Assistance Retrieving/Set-up of Grooming Items Comments OT Grooming Comments Pt able to stand with FWW and lean on the counter and maintain LLE NWB in order to do all grooming needs. OT ADL-Oral Care General Eval Oral Care Ability Independent OT ADL-Bathing Comments OT Bathing Comments Pt not wanting to shower and would rather do at skilled rehab. M6 OT- IP Functional Cognition Start: 11/18/18 13:27 Freq: Status: Active Protocol: Document 11/19/18 10:23 [facility] (Rec: 11/19/18 10:32 [facility] [email or web address]) Cognitive Factors Limiting Selfcare Function Cognitive Ability Level of Alertness Alert Patient Orientation Name Place Situation Attention Span Ability Capable of Focused Attention Capable of Sustained Attention Ability to Follow Commands Able to Follow One Step Commands Memory Description No Deficits Noted Safety Awareness Underestimates Need for Assistance Problem Solving Ability Needs Assist to Identify Solutions Cognitive Comments Cognitive Assessment Comments Pt doing much better to follow directions and commands . Pt able to remember safety to push up from armrests of recliner and to be sure to back up all the way to the recliner before sitting. Pt needing one cue to find washcloth located on the right on the counter. M7 OT- IP Mobility and Balance Start: 11/18/18 13:27 Freq: Status: Active Protocol: Document 11/19/18 10:23 [facility] (Rec: 11/19/18 10:32 [facility] [email or web address]) OT-Transfer Assessment Sit to and From Stand Sit to and from Stand Standby Assistance 1 Person Assistance Transfers Transfer Ability Standby Assistance Contact Guard Assistance 1 Person Assistance Technique Transfer Destination Chair Transfer Technique Stand Step Pivot Devices Transfer Assistive Devices Gait Belt Front Wheeled Walker Comments Mobility Comments Pt much safety and more balance today when up on her RLE with FWW. Still recommend pt to have someone get her shoe therefore to increase ease to hop on right foot. OT- Balance Assessment Sitting Balance and Reactions Static Sitting Balance Ability Normal Dynamic Sitting Balance Ability Normal Standing Balance and Reactions Static Standing Balance Ability Good M8 OT- IP Objective Assessments Start: 11/18/18 13:27 Freq: Status: Active Protocol: Document 11/18/18 15:12 [facility] (Rec: 11/18/18 15:40 [facility] [id number]) OT Gross Range of Motion Upper Extremity Range of Motion Assessment Within Functional Limits ROM Impairments Arthritic changes in hands. OT Strength Comments Strength Comments BUE 4-/5 M9 OT- IP Assessment and Plan Start: 11/18/18 13:27 Freq: Status: Active Protocol: Document 11/19/18 10:23 [facility] (Rec: 11/19/18 10:32 [facility] [email or web address]) OT Summary Assessment and Plan Potential Rehabilitation Potential Good Analytic Complexity at Evaluation Low Summary OT Impairments Functional Mobility Dressing Toileting Bathing Toilet Transfers Shower Transfers Progress Towards Goals Slow Progress due to Activity Tolerance Assessment Summary Pt doing much better today with ADL, safety awareness, and functional mobility needs and feels ready to go to skilled rehab. Goals Dressing Goal Contact Guard Assistance Toileting Goal Standby Assistance Bathing Goal Minimal Assistance Toilet Transfer Goal Standby Assistance Shower Transfer Goal Minimal Assistance Days to Meet Goals 2 Frequency of Treatment Frequency Of Treatment Once a Day Treatment Plan OT Treatment Plan ADL Training Functional Mobility Patient/Family Education Discharge Planning Other Treatment Recommendations and Next Shower Treatment Focus Discharge Recommendations OT Discharge Recommendations SNF Rehab Home Equipment Needs defer to SNF
--- NOTE | 2018-11-19 12:19 | PM.DS.1 ---
History of Present Illness Chief complaint: L ankle deformity Narrative: The patient is a 68-year-old female w/ HTN (history, currently not on meds), IDDM 2T, HLD (diet controlled), and hypothyroidism who presented to the ED after sustaining a ground level fall. Patient reports slipping on water in her laundry room. She fell onto her left ankle. At time of injury experienced immediate pain. She was unable to get up on her own ambulate. Denies injury to the head and loss of consciousness. Prior to the event patient was not dizzy. Denies chest pain, palpitations, dizziness, lightheadedness, and syncopal events. She crawled to the phone to summon help, thereafter was transferred to the ED for further evaluation. XR of the ankle revealed fracture of the medial malleolus, lateral malleolus, and posterior malleolus. The calyces dislocated laterally. ED discussed patient's case with Orthopedic surgery, Dr. Schaeffer. Patient was not a surgical candidate due to fracture blisters on medial malleolus. Consequently she underwent a reduction and splinting of the injured extremity. Patient was unable to use crutches or ambulate on own. At baseline patient lead lives and functions independently. She does not have family or other help available to her. Patient is being admitted for physical therapy. Discharge Providers Date of admission: 11/15/18 22:31 Discharge Date: 11/19/18 Primary care physician: Damion Borja MD Consults: 11/16/18 08:03 Consult to Physical Therapy Evaluate & Treat Comment: Physician Instructions: Evaluate and Treat 11/16/18 10:15 Consult to Orthopedic Surgery Routine Comment: Consulting Provider: Fortino Schaeffer Reason for consultation: Magdagrisel Fx Has provider been notified: Yes 11/17/18 21:28 Consult to Discharge Planning Routine Comment: Consult to Physical Therapy Evaluate & Treat Comment: Physician Instructions: Evaluate and Treat 11/18/18 09:13 Consult to Occupational Therapy Evaluate & Treat Comment: Physician Instructions: Evaluate and treat Discharge provider: Los Fitzgerald MD Summary Discharge Diagnosis: 1. Acute pathological closed displaced left trimalleolar ankle fracture, after ground level fall, secondary to osteoporosis 2. Type 2 diabetes 3. Acute hyponatremia 4. Acute blood loss anemia secondary to lower extremity fracture Hospital Course: Patient admitted and had open reduction and internal fixation of medial and lateral malleolus fractures, left ankle by Dr. Elmer Schaeffer on 11/17/2018. Noted to have extremely soft and a steep product bone and patient would likely benefit from anti resorptive therapy which can be initiated as outpatient. She had acute hyponatremia which improved with sodium initially 121 and up to 131 on discharge. She had persistently elevated blood sugars, initial glucose 385, with glucose staying elevated in spite of hemoglobin A1c level of 4.2 which is artificially low. The hemoglobin A1c may sometimes artificially run low in setting of anemia. She was continued on metformin and started on Lantus currently 15 units each evening with improved control. Also she had significant anemia with initial hematocrit 30.1 down to 23.5 on day of discharge which is due to blood loss related to the fracture. Her baseline hematocrit is 35.2 on the labs 08/10/2016. She started on oral iron replacement therapy to help with the anemia. She may need outpatient workup for anemia as well. Patient has been seen daily by physical therapy and at this point she is unable to safely return home due to inability to maintain balance while nonweightbearing on the left leg. Patient is being discharged to [facility] ([facility]) for halfway rehab. Per ortho visit note from today: the patient will be maintained nonweightbearing in the splint for 2 weeks. She will then return to the clinic where the splint will be removed and the re removed. She will then be placed in a nonweightbearing cast for an additional 2 weeks. At that time she should be able to go into a removable orthosis and begin weight-bearing. After 4 additional weeks the removable orthosis will be discontinued. Status at Discharge Cognitive/behavioral status at discharge: oriented Time Spent with Patient Greater than 30 minutes Exam Vital Signs (past 8 hours): - 11/19/18 05:12 11/19/18 08:00 11/19/18 09:09 Temperature 98.6 F 98.3 F Pulse Rate 87 84 Respiratory Rate 17 18 Blood Pressure 151/95 H 142/91 H Pulse Oximetry 100 99 99 Oxygen Delivery Method Room Air Oxygen Flow Rate 0 Objective Labs Result Diagrams: 11/19/18 05:48 11/19/18 05:48 Labs: Laboratory Results - last 24 hr 11/19/18 11/19/18 05:48 05:48 WBC 8.1 RBC 2.48 L Hgb 8.0 L Hct 23.5 L MCV 95.0 MCH 32.2 MCHC 33.9 RDW 12.3 Plt Count 286 Neut % (Auto) 47.6 L Lymph % (Auto) 34.4 [place] % (Auto) 14.5 H Eos % (Auto) 3.0 Baso % (Auto) 0.5 Neut # (Auto) 3900 Lymph # (Auto) 2800 [place] # (Auto) 1200 H Eos # (Auto) 200 Baso # (Auto) 0 Sodium 131 L Potassium 3.9 Chloride 99 Carbon Dioxide 26 BUN 13 Creatinine 1.00 Estimated GFR 55.5 L BUN/Creatinine Ratio 13.0 Glucose 177 H Calcium 8.4 Discharge Plan Discharge Plan Patient Disposition: SNF Transfer to: [facility] Diagnostic studies (x-ray, etc.): CBG bid Consult as needed: Dental, Hearing, Mental health, Podiatry and Vision I certify the postop hospital halfway care is medically necessary on a continuing basis for any conditions for which he/ she received care during this hospitalization.: Yes The receiving facility has agreed to accept transfer and provide medical treatment.: Yes Discharge Med Rec/Prescriptions Prescriptions: New acetaminophen 325 mg Tablet 975 mg PO TID Qty: 60 RF: 0 polyethylene glycol 3350 17 gram Powder In Packet 17 gm PO DAILY 30 Days RF: 0 aspirin 81 mg Tablet,Delayed Release (Dr/Ec) 81 mg PO BID Qty: 60 RF: 0 oxycodone 5 mg Tablet 5 mg PO Q3HR PRN (Reason: Pain, Moderate (4-6)) Qty: 30 RF: 0 Lantus Solostar U-100 Insulin 100 unit/mL (3 mL) Insulin Pen 15 unit subcut BEDTIME Qty: 15 RF: 0 ferrous sulfate 325 mg (65 mg iron) tablet 325 mg PO BID Qty: 60 RF: 0 Continued metformin 1,000 MG tablet 1,000 mg PO BID Qty: 180 RF: 1 [lancets] 1 ea MC Q DAY RF: 0 [true metrix monitor] 1 ea miscellaneous DIRECTED RF: 0 [True Metrix Test str] 1 ea miscellaneous DIRECTED RF: 0 Follow up/Referrals: Damion Borja MD [Primary Care Provider] - Fortino Schaeffer MD [Physician] - (Follow up in 2 weeks) Discharge Health Status Multidrug resistant organism: No MDRO Precautions: Osteen Provider Discharge Instructions Diet: Diet as Tolerated and Carb-consistent/Diabetic Liquid consistency: Normal/Thin Food texture: Regular Activity: The patient will be maintained nonweightbearing in the splint for 2 weeks. She will then return to the clinic where the splint will be removed and the re removed. She will then be placed in a nonweightbearing cast for an additional 2 weeks. At that time she should be able to go into a removable orthosis and begin weight-bearing. After 4 additional weeks the removable orthosis will be discontinued. Visit Report/Discharge Packet Instructions: DI for Open Reduction Internal Fixation Surgery Discharge Data Primary Care Provider: Damion Borja Attending Provider: Bridget Issa Admit Date/Time: 11/15/18 22:31 Quality VTE Deep Vein Thrombosis/Pulmonary Embolism Present on Admission: No
[2018-11-19 14:07] LABS: Fructosamine 341 umol/L (190-270)
--- NOTE | 2018-11-19 14:37 | PC.NURSE ---
PATIENT TOLERATING PAIN MANAGEMENT REGIMEN W/ MAX C/O 5/10 DOWN TO 1-2/10 AFTER MEDICATED. PIVOT TRANSF TO COMMODE, NON-WT BEAR TO LLE. 1P CGA W/ FWW. VOIDING WELL. TRANSF TO [facility] ORDER. REPORT CALLED TO NURSE SEE.
--- NOTE | 2018-11-19 16:18 | PC.NURSE ---
1600: [facility] aide here to mushroom picker patient, packet sent with them, patient taken via wheelchair to transfer to [facility].
== END 2018-11-19 16:00 | DRG 493 ==
LOC: ED 21:50 → AC 11-16 08:19
PROVIDERS: Family Medicine; Internal Medicine; Orthopaedic Surgery; Admitting Provider Nurse Practitioner Gerontology; Emergency Provider Emergency Medicine; PCP Family Medicine; Visit Provider Nurse Practitioner Gerontology
PROC: 0QSK04Z Reposition Left Fibula with Internal Fixation Device, Open Approach (ICD-10-PCS; principal; 2018-11-17 18:30)
DX: M80.072A Age-related osteoporosis with current pathological fracture, left ankle and foot, initial encounter for fracture (principal); E87.1 Hypo-osmolality and hyponatremia; D62 Acute posthemorrhagic anemia; E11.9 Type 2 diabetes mellitus without complications; E03.9 Hypothyroidism, unspecified; W01.0XXA Fall on same level from slipping, tripping and stumbling without subsequent striking against object, initial encounter; Y92.018 Other place in single-family (private) house as the place of occurrence of the external cause; Z79.84 Long term (current) use of oral hypoglycemic drugs
CPT/HCPCS: 27752; 36415; 36592; 73600; 73610; 80048; 80053; 82962; 82985; 83735; 84145; 85025; 85027; 94762; 94770; 96374; 97161; 97162; 97165; 97530; 97535; 99284; 99285; J0690; J1644; J2250; J2270; J2405; J2704; J3010; J3480

== ENCOUNTER → 2018-11-23 08:42 | Outpatient (ROUT) | payer SELFPAY ==
[2018-11-16 20:09] VITALS: BMI 24.5
[2018-11-23 12:08] LABS: Thyroid Stimulating Hormone 7.94 uIU/mL (0.47-4.68)
== END ==
PROVIDERS: PCP Family Medicine; Visit Provider Internal Medicine
DX: E03.9 Hypothyroidism, unspecified (principal)
CPT/HCPCS: 36415; 84443

== ENCOUNTER → 2018-12-07 08:39 | Outpatient (ROUT) | payer SELFPAY ==
[2018-11-16 20:09] VITALS: BMI 24.5
[2018-12-07 10:16] LABS: BUN Creatinine Ratio 14.6 (6-22); Blood Urea Nitrogen 19 mg/dL (7-17); Carbon Dioxide 22 mmol/L (22-32); Chloride 105 mmol/L (98-107); Glucose 119 mg/dL (80-110); HEMOLYSIS < 15 (0-50); Potassium 4.1 mmol/L (3.4-5.1); Sodium 138 mmol/L (137-145)
[2018-12-07 10:17] LABS: Add Manual Diff / Slide Review NO; Basophils Absolute Auto 100 /uL (0-100); Basophils Percent Auto 0.8 % (0-2); Eosinophils Absolute Auto 300 /uL (0-450); Eosinophils Percent Auto 3.8 % (2-4); Hematocrit 29.3 % (36-46); Hemoglobin 10.4 g/dL (12.0-16.0); Lymphocytes Absolute Auto 3400 /uL (1100-4500); Lymphocytes Percent Auto 41.7 % (25-40); Mean Corpuscular HGB Conc 35.3 % (30-36); Mean Corpuscular Hemoglobin 33.1 PG (26-34); Mean Corpuscular Volume 93.7 fL (80-100); Monocytes Absolute Auto 800 /uL (0-900); Monocytes Percent Auto 9.4 % (3-14); Neutrophils Absolute Auto 3600 /uL (1500-7000); Neutrophils Percent Auto 44.3 % (50-75); Platelet Count 610 X10^3/uL (150-400); Red Blood Cell Count 3.13 X10^6/uL (4.0-5.2); Red Cell Distribution Width 12.5 % (11.6-14.8); White Blood Cell Count 8.1 X10^3/uL (4.5-11.0)
== END ==
PROVIDERS: PCP Family Medicine; Visit Provider Nurse Practitioner Family
DX: E03.9 Hypothyroidism, unspecified (principal); I10 Essential (primary) hypertension
CPT/HCPCS: 36415; 80048; 85025

== ENCOUNTER → 2018-12-28 13:03 | Outpatient (CLI) | payer MEDICARE, SELFPAY ==
[2018-11-16 20:09] VITALS: BMI 24.5
--- NOTE | 2018-12-28 13:06 | DI.RAD.S_ITS ---
PROCEDURE: FL BARIUM SWALLOW INDICATIONS: Solid food dysphagia COMPARISON: None. FINDINGS: Function: There is normal esophageal peristalsis. Mild gastroesophageal reflux is seen.. There is delay of transit of a calibrated barium tablet through the esophagus into the stomach at the level of GE junction. Morphology: Air-contrast images demonstrate normal mucosal morphology. Single contrast views small hiatal hernia with tapering of distal esophagus at the GE junction and high-grade stenosis. There is distention of more proximal esophageal lumen with contrast. No obstruction is seen. Limited images of the stomach demonstrate normal appearance. IMPRESSION: 1. Small hiatal hernia with focal area of moderate to high-grade stenosis involving distal esophageal lumen near GE junction. Contrast is seen passing through the area of stenosis however the swallow the pill is seen lodged at the area of narrowing. No gross intraluminal filling defect is seen. No gross ulceration. Endoscopic correlation is recommended. 2. Mild gastroesophageal reflux. Dictated by: Juliano Montes M.D. on 12/28/2018 at 14:16 Approved by: Juliano Montes M.D. on 12/28/2018 at 14:22
== END ==
PROVIDERS: PCP Student in an Organized Health Care Education/Training Program; Visit Provider Student in an Organized Health Care Education/Training Program
DX: R13.19 Other dysphagia (principal); K44.9 Diaphragmatic hernia without obstruction or gangrene; K22.2 Esophageal obstruction; K21.9 Gastro-esophageal reflux disease without esophagitis
CPT/HCPCS: 74220

== ENCOUNTER → 2019-01-03 13:05 | Outpatient (CLI) | payer MEDICARE, SELFPAY ==
[2018-11-16 20:09] VITALS: BMI 24.5
== END ==
PROVIDERS: PCP Student in an Organized Health Care Education/Training Program; Visit Provider Student in an Organized Health Care Education/Training Program
DX: M85.852 Other specified disorders of bone density and structure, left thigh (principal); D62 Acute posthemorrhagic anemia; Z78.0 Asymptomatic menopausal state
CPT/HCPCS: 77080

== ENCOUNTER → 2019-03-28 08:05 | Outpatient (CLI) | payer MEDICARE, SELFPAY ==
[2018-11-16 20:09] VITALS: BMI 24.5
[2019-03-28 10:07] LABS: Hemoglobin A1C% w Est Avg Glu 8.1 % (4.0-6.0)
[2019-03-28 10:09] LABS: Hematocrit 33.4 % (36-46); Hemoglobin 11.5 g/dL (12.0-16.0); Mean Corpuscular HGB Conc 34.3 % (30-36); Mean Corpuscular Hemoglobin 29.9 PG (26-34); Mean Corpuscular Volume 87.3 fL (80-100); Platelet Count 396 X10^3/uL (150-400); Red Blood Cell Count 3.83 X10^6/uL (4.0-5.2); Red Cell Distribution Width 12.9 % (11.6-14.8); White Blood Cell Count 7.3 X10^3/uL (4.5-11.0)
[2019-03-28 10:26] LABS: Reticulocyte Count, Percent 1.1 % (1.06-2.63)
[2019-03-28 10:34] LABS: Chloride 101 mmol/L (98-107); Creatinine Urine Random 79.9 mg/dL; HEMOLYSIS < 15 (0-50)
[2019-03-28 10:36] LABS: BUN Creatinine Ratio 19.2 (6-22); Blood Urea Nitrogen 23 mg/dL (7-17); Calcium 10.2 mg/dL (8.4-10.2); Carbon Dioxide 24 mmol/L (22-32); Cholesterol 283 mg/dL (140-199); Estimated Glomerular Filt Rate 44.9 mL/min (>60); Glucose 129 mg/dL (80-110); HDL Cholesterol 36 mg/dL (40-60); LDL Cholesterol Calculated 210 mg/dL (<100); Potassium 4.8 mmol/L (3.4-5.1); Sodium 138 mmol/L (137-145); Triglycerides 184 mg/dL (35-150)
[2019-03-28 10:38] LABS: Microalbumi Creatinin Ratio Ur 105.1 ug/mg CR (<30); Microalbumin Urine Random 8.4 mg/dL (0-1.6)
[2019-03-28 10:39] LABS: HEMOLYSIS < 15 (0-50); Iron 61 ug/dL (37-170)
[2019-03-28 10:51] LABS: Percent Iron Saturation 19 % (15-50); Total Iron Binding Capacity 315 ug/dL (265-497); Transferrin 256 mg/dL (206-381)
[2019-03-28 11:05] LABS: Ferritin 61.3 ng/mL (11.1-264)
[2019-03-28 11:36] LABS: Folate 12.8 ng/mL (2.76-20.0); Vitamin B12 317 pg/mL (239-931)
== END ==
PROVIDERS: PCP Student in an Organized Health Care Education/Training Program; Visit Provider Student in an Organized Health Care Education/Training Program
DX: D62 Acute posthemorrhagic anemia (principal); N17.9 Acute kidney failure, unspecified; E11.9 Type 2 diabetes mellitus without complications; E78.2 Mixed hyperlipidemia; E55.9 Vitamin D deficiency, unspecified; T14.8XXA Other injury of unspecified body region, initial encounter
CPT/HCPCS: 36415; 80048; 80061; 82043; 82570; 82607; 82728; 82746; 83036; 83540; 83550; 85027; 85045

== ENCOUNTER → 2019-09-20 08:47 | Outpatient (CLI) | payer MEDICARE, SELFPAY ==
[2018-11-16 20:09] VITALS: BMI 24.5
[2019-09-20 09:47] LABS: Hemoglobin A1C% w Est Avg Glu 6.7 % (4.0-6.0)
[2019-09-20 09:58] LABS: BUN Creatinine Ratio 18.2 (6-22); Blood Urea Nitrogen 22 mg/dL (7-17); Calcium 9.8 mg/dL (8.4-10.2); Carbon Dioxide 28 mmol/L (22-32); Chloride 101 mmol/L (98-107); Cholesterol 263 mg/dL (140-199); Estimated Glomerular Filt Rate 44.4 mL/min (>60); Glucose 131 mg/dL (80-110); HDL Cholesterol 54 mg/dL (40-60); HEMOLYSIS < 15 (0-50); LDL Cholesterol Calculated 191 mg/dL (<100); Potassium 3.9 mmol/L (3.4-5.1); Sodium 136 mmol/L (137-145); Triglycerides 89 mg/dL (35-150)
[2019-09-20 10:22] LABS: Creatinine Urine Random 60.9 mg/dL
[2019-09-20 10:27] LABS: Microalbumi Creatinin Ratio Ur 188.8 ug/mg CR (<30); Microalbumin Urine Random 11.5 mg/dL (0-1.6)
== END ==
PROVIDERS: PCP Student in an Organized Health Care Education/Training Program; Referring Provider Student in an Organized Health Care Education/Training Program; Visit Provider Student in an Organized Health Care Education/Training Program
DX: E11.29 Type 2 diabetes mellitus with other diabetic kidney complication (principal); E11.9 Type 2 diabetes mellitus without complications; E78.2 Mixed hyperlipidemia; R80.9 Proteinuria, unspecified
CPT/HCPCS: 36415; 80048; 80061; 82043; 82570; 83036

== ENCOUNTER → 2020-03-28 09:47 | Outpatient (CLI) | payer MEDICARE, SELFPAY ==
[2018-11-16 20:09] VITALS: BMI 24.5
[2020-03-28 10:37] LABS: Hemoglobin A1C% w Est Avg Glu 6.7 % (4.0-6.0)
[2020-03-28 10:55] LABS: HEMOLYSIS < 15 (0-50); Potassium 4.5 mmol/L (3.4-5.1)
[2020-03-28 10:58] LABS: BUN Creatinine Ratio 13.3 (6-22); Blood Urea Nitrogen 14 mg/dL (7-17); Calcium 9.8 mg/dL (8.4-10.2); Carbon Dioxide 26 mmol/L (22-32); Chloride 102 mmol/L (98-107); Cholesterol 219 mg/dL (140-199); Estimated Glomerular Filt Rate 52.3 mL/min (>60); Glucose 123 mg/dL (80-110); HDL Cholesterol 44 mg/dL (40-60); LDL Cholesterol Calculated 150 mg/dL (<100); Sodium 137 mmol/L (137-145); Triglycerides 123 mg/dL (35-150)
== END ==
PROVIDERS: PCP Student in an Organized Health Care Education/Training Program; Referring Provider Student in an Organized Health Care Education/Training Program; Visit Provider Student in an Organized Health Care Education/Training Program
DX: E11.9 Type 2 diabetes mellitus without complications (principal); I10 Essential (primary) hypertension; N17.9 Acute kidney failure, unspecified; E78.2 Mixed hyperlipidemia
CPT/HCPCS: 36415; 80048; 80061; 83036

== ENCOUNTER → 2020-09-25 09:50 | Outpatient (CLI) | payer MEDICARE, SELFPAY ==
[2018-11-16 20:09] VITALS: BMI 24.5
[2020-09-25 10:43] LABS: Hemoglobin A1C% w Est Avg Glu 6.2 % (4.0-6.0)
[2020-09-25 10:45] LABS: BUN Creatinine Ratio 17.3 (6-22); Blood Urea Nitrogen 24 mg/dL (7-17); Cholesterol 169 mg/dL (140-199); Estimated Glomerular Filt Rate 37.7 mL/min (>60); HDL Cholesterol 49 mg/dL (40-60); LDL Cholesterol Calculated 93 mg/dL (<100); Triglycerides 137 mg/dL (35-150)
[2020-09-25 11:08] LABS: Creatinine Urine Random 137.7 mg/dL
[2020-09-25 11:14] LABS: Microalbumi Creatinin Ratio Ur 37.7 ug/mg CR (<30); Microalbumin Urine Random 5.2 mg/dL (0-1.6)
== END ==
PROVIDERS: PCP Student in an Organized Health Care Education/Training Program; Referring Provider Student in an Organized Health Care Education/Training Program; Visit Provider Student in an Organized Health Care Education/Training Program
DX: E11.9 Type 2 diabetes mellitus without complications (principal); E78.2 Mixed hyperlipidemia; I10 Essential (primary) hypertension
CPT/HCPCS: 36415; 80061; 82043; 82565; 82570; 83036; 84520

== ENCOUNTER → 2021-04-10 10:03 | Outpatient (CLI) | payer MEDICARE, SELFPAY ==
[2018-11-16 20:09] VITALS: BMI 24.5
== END ==
PROVIDERS: PCP Student in an Organized Health Care Education/Training Program; Visit Provider Nurse Practitioner Family
DX: N34.3 Urethral syndrome, unspecified (principal)
CPT/HCPCS: 87077; 87086; 87186

== ENCOUNTER → 2021-05-15 08:13 | Outpatient (CLI) | payer MEDICARE, SELFPAY ==
[2018-11-16 20:09] VITALS: BMI 24.5
[2021-05-15 09:17] LABS: Hemoglobin A1C% w Est Avg Glu 5.8 % (4.0-6.0)
[2021-05-15 14:43] LABS: Appearance Urine UA CLEAR; Bilirubin Urine UA NEGATIVE (NEGATIVE); Color Urine UA YELLOW; Glucose Urine UA TRACE g/dL (Negative); Ketones Urine UA NEGATIVE (NEGATIVE); Leukocyte Esterase Urine UA 1+ (NEGATIVE); Nitrite Urine UA POSITIVE (Negative); Occult Blood Urine UA TRACE-LYSED (Negative); Protein Urine UA 3+ (Negative); Urobilinogen Urine UA 0.2 E.U./dL (0.2)
[2021-05-15 14:44] LABS: pH Urine UA 6.5 (4.5-8.0)
[2021-05-15 14:52] LABS: RBC Urine 0-1/HPF (0-5/HPF); Squamous Epithelial Cell Urine 5-10 /HPF (0-5/HPF); WBC Urine 5-10/HPF (0-5/HPF)
[2021-05-15 14:53] LABS: Amorphous Sediment Urine 2+; Bacteria Urine Many (>30); Culture Indicated Urine Cult Not Indicated
[2021-05-15 19:58] LABS: Creatinine Urine Random 82.6 mg/dL
[2021-05-15 20:35] LABS: Microalbumi Creatinin Ratio Ur 4987.8 ug/mg CR (<30)
== END ==
PROVIDERS: PCP Student in an Organized Health Care Education/Training Program; Referring Provider Student in an Organized Health Care Education/Training Program; Visit Provider Student in an Organized Health Care Education/Training Program
DX: E11.9 Type 2 diabetes mellitus without complications (principal); N17.9 Acute kidney failure, unspecified; R30.0 Dysuria
CPT/HCPCS: 36415; 81001; 82043; 82570; 83036

== ENCOUNTER → 2022-10-05 07:38 | Outpatient (CLI) | payer MEDICARE, SELFPAY ==
[2022-09-29 10:06] VITALS: BMI 24.5
[2022-10-05 08:42] LABS: Add Manual Diff / Slide Review NO; Basophils Absolute Auto 100 /uL (0-100); Basophils Percent Auto 1.3 % (0-2); Eosinophils Absolute Auto 300 /uL (0-450); Eosinophils Percent Auto 5.5 % (2-4); Hematocrit 31.8 % (36-46); Hemoglobin 11.1 g/dL (12.0-16.0); Lymphocytes Absolute Auto 2100 /uL (1100-4500); Lymphocytes Percent Auto 36.9 % (25-40); Mean Corpuscular HGB Conc 34.9 % (30-36); Mean Corpuscular Hemoglobin 30.9 PG (26-34); Mean Corpuscular Volume 88.6 fL (80-100); Monocytes Absolute Auto 400 /uL (0-900); Monocytes Percent Auto 7.5 % (3-14); Neutrophils Absolute Auto 2700 /uL (1500-7000); Neutrophils Percent Auto 48.8 % (50-75); Platelet Count 406 X10^3/uL (150-400); Red Blood Cell Count 3.59 X10^6/uL (4.0-5.2); Red Cell Distribution Width 12.8 % (11.6-14.8); White Blood Cell Count 5.6 X10^3/uL (4.5-11.0)
[2022-10-05 10:26] LABS: Alanine Aminotransferase 17 IU/L (<35); Albumin 4.1 g/dL (3.5-5.0); Albumin Globulin Ratio 1.2 (1.0-2.8); Alkaline Phosphatase 62 U/L (38-126); Aspartate Aminotransferase 26 IU/L (14-36); BUN Creatinine Ratio 11.2 (6-22); Bilirubin Total 0.7 mg/dL (0.2-1.3); Blood Urea Nitrogen 21 mg/dL (7-17); Calcium 9.5 mg/dL (8.4-10.2); Carbon Dioxide 25 mmol/L (22-32); Chloride 102 mmol/L (98-107); Cholesterol 267 mg/dL (140-199); Estimated Glomerular Filt Rate 29 mL/min (>60); Globulin 3.3 g/dL (1.7-4.1); Glucose 99 mg/dL (80-110); HDL Cholesterol 51 mg/dL (40-60); HEMOLYSIS < 15 (0-50); LDL Cholesterol Calculated 202 mg/dL (<100); Potassium 4.4 mmol/L (3.4-5.1); Sodium 136 mmol/L (137-145); Total Protein 7.4 g/dL (6.3-8.2); Triglycerides 70 mg/dL (35-150)
[2022-10-05 10:27] LABS: Creatinine Urine Random 57.4 mg/dL
[2022-10-05 12:25] LABS: Microalbumi Creatinin Ratio Ur 1127.1 ug/mg CR (<30); Microalbumin Urine Random 64.7 mg/dL (0-1.6)
[2022-10-06 07:22] LABS: Labcorp Hemoglobin (Hb) A1c 6.5 % (4.8-5.6)
== END ==
PROVIDERS: PCP Student in an Organized Health Care Education/Training Program; Referring Provider Student in an Organized Health Care Education/Training Program; Visit Provider Student in an Organized Health Care Education/Training Program
DX: E03.9 Hypothyroidism, unspecified (principal); E78.2 Mixed hyperlipidemia; I10 Essential (primary) hypertension; R80.9 Proteinuria, unspecified; E11.9 Type 2 diabetes mellitus without complications
CPT/HCPCS: 36415; 80053; 80061; 82043; 82570; 83036; 84443; 85025

== ENCOUNTER → 2022-11-20 09:55 | Outpatient (CLI) | payer MEDICARE, MEDICAID, SELFPAY ==
[2022-09-29 10:06] VITALS: BMI 24.5
[2022-11-20 11:39] LABS: Hematocrit 31.2 % (36-46); Hemoglobin 10.9 g/dL (12.0-16.0)
[2022-11-20 11:47] LABS: BUN Creatinine Ratio 16.5 (6-22); Blood Urea Nitrogen 31 mg/dL (7-17); Calcium 9.3 mg/dL (8.4-10.2); Carbon Dioxide 22 mmol/L (22-32); Chloride 104 mmol/L (98-107); Estimated Glomerular Filt Rate 28 mL/min (>60); Glucose 110 mg/dL (80-110); HEMOLYSIS < 15 (0-50); Potassium 4.4 mmol/L (3.4-5.1); Sodium 135 mmol/L (137-145)
[2022-11-20 14:07] LABS: Creatinine Urine Random 74.6 mg/dL; Protein (Total) Urine Random 90 mg/dL (0-12)
== END ==
PROVIDERS: PCP Student in an Organized Health Care Education/Training Program; Referring Provider Student in an Organized Health Care Education/Training Program; Visit Provider Student in an Organized Health Care Education/Training Program
DX: N05.9 Unspecified nephritic syndrome with unspecified morphologic changes (principal); D64.9 Anemia, unspecified; R80.9 Proteinuria, unspecified
CPT/HCPCS: 36415; 80048; 82570; 84156; 85014; 85018

== ENCOUNTER → 2022-12-14 10:28 | Outpatient (CLI) | payer MEDICARE, MEDICAID, SELFPAY ==
[2022-09-29 10:06] VITALS: BMI 24.5
--- NOTE | 2022-12-14 | DI.US.S_ITS ---
PROCEDURE: US RENAL COMPLETE INDICATIONS: CHRONIC KIDNEY DISEASE STAGE 4 TECHNIQUE: Real-time scanning was performed of the kidneys and bladder, with image documentation. COMPARISON: None. FINDINGS: Kidneys: Kidneys are normal in size. Right kidney measures 9.3 cm long; left kidney measures 8.7 cm long. Right renal cortical thickness is 1.6 cm; left renal cortical thickness is 1.5 cm. Renal cortical echotexture is increased. No hydronephrosis or nephrolithiasis. No suspicious solid mass lesions. Bladder: Pre-void bladder volume is 88 mL. Post-void residual is 22 mL. Pre-void images demonstrate no intraluminal masses or stones. On pre-void images, the left ureteral jet is noted with color Doppler interrogation. (Of note, ureteral jets may not be detectable in up to 25% of cases due to insufficient differences in specific gravity between ureteral and bladder urine). Miscellaneous: No free pelvic fluid. IMPRESSION: 1. No hydronephrosis. 2. Mild to moderate postvoid residual. 3. Increased renal echotexture suggesting medical renal disease. Dictated by: Brooke Dietrich M.D. on 12/14/2022 at 16:32 Approved by: Brooke Dietrich M.D. on 12/14/2022 at 16:34
[2022-12-14 11:26] LABS: Hematocrit 28.1 % (36-46); Hemoglobin 9.8 g/dL (12.0-16.0)
[2022-12-14 11:27] LABS: Appearance Urine UA CLEAR; Bilirubin Urine UA NEGATIVE (NEGATIVE); Color Urine UA YELLOW; Glucose Urine UA NEGATIVE (Negative); Ketones Urine UA NEGATIVE (NEGATIVE); Leukocyte Esterase Urine UA TRACE (NEGATIVE); Nitrite Urine UA NEGATIVE (Negative); Occult Blood Urine UA NEGATIVE (Negative); Protein Urine UA 2+ (Negative); Specific Gravity Urine UA <=1.005 (1.000-1.035); Urobilinogen Urine UA 0.2 E.U./dL (0.2)
[2022-12-14 11:44] LABS: Bacteria Urine Occasional (0-1); RBC Urine 0-1/HPF (0-5/HPF); Squamous Epithelial Cell Urine 0-1 /HPF (0-5/HPF); WBC Urine 0-1/HPF (0-5/HPF)
[2022-12-14 11:46] LABS: Culture Indicated Urine Specimen Cultured
[2022-12-14 12:03] LABS: Protein (Total) Urine Random 84 mg/dL (0-12); Protein Creatinine Ratio Urine 2.27 GRAM/24H
[2022-12-14 12:04] LABS: BUN Creatinine Ratio 13.7 (6-22); Blood Urea Nitrogen 24 mg/dL (7-17); Calcium 9.2 mg/dL (8.4-10.2); Carbon Dioxide 23 mmol/L (22-32); Chloride 103 mmol/L (98-107); Estimated Glomerular Filt Rate 31 mL/min (>60); Glucose 138 mg/dL (80-110); HEMOLYSIS < 15 (0-50); Phosphorous 4.1 mg/dL (2.8-4.1); Potassium 4.3 mmol/L (3.4-5.1); Sodium 135 mmol/L (137-145)
[2022-12-14 17:41] LABS: Hepatitis B Surface Antigen NEGATIVE s/c (NEGATIVE)
[2022-12-14 17:50] LABS: Hep C Virus Ab w/Reflex Quant NEGATIVE s/c (NEGATIVE)
[2022-12-15 02:36] LABS: Hepatitis B Core Antibody Negative (Negative)
[2022-12-15 05:18] LABS: Complement C3 86 mg/dL (82-167)
[2022-12-15 16:23] LABS: DNA (DS) Antibody <1 IU/mL (0-9)
[2022-12-15 17:33] LABS: Free Kappa Lt Chains, Serum 54.6 mg/L (3.3-19.4); Free Lambda Lt Chains,Serum 28.7 mg/L (5.7-26.3)
[2022-12-16 05:44] LABS: Hepatitis B Surf Ab Qualitativ Reactive (.)
[2022-12-16 08:10] LABS: Parathyroid Hormone Int 35 pg/mL (15-65)
[2022-12-16 12:58] LABS: Cytoplasmic C-ANCA <1:20 titer (Neg:<1:20); Perinuclear P-ANCA <1:20 titer (Neg:<1:20)
[2022-12-16 14:24] LABS: Alpha-1 Globulin, Ur 3.2 % (.); Gamma Globulin, Ur 3.9 % (.); M-Spike % Not Observed % (Not Observed); Urine Total Protein 57.9 mg/dL (Not Estab.)
[2022-12-16 14:54] LABS: Albumin 3.4 g/dL (2.9-4.4); Alpha 1 Globulin 0.2 g/dL (0.0-0.4); Alpha 2 Globulin 0.8 g/dL (0.4-1.0); Gamma Globulin 1.2 g/dL (0.4-1.8); Protein, Total 6.5 g/dL (6.0-8.5)
[2022-12-17 14:36] LABS: ANA Screen, IFA Negative (.)
[2022-12-23 17:08] LABS: Antimyeloperoxidase Antibodies <0.2 units (0.0-0.9); Antiproteinase 3 Antibodies <0.2 units (0.0-0.9)
== END ==
PROVIDERS: PCP Student in an Organized Health Care Education/Training Program; Referring Provider Student in an Organized Health Care Education/Training Program; Visit Provider Student in an Organized Health Care Education/Training Program
DX: N18.4 Chronic kidney disease, stage 4 (severe) (principal); M31.30 Wegener's granulomatosis without renal involvement; M32.10 Systemic lupus erythematosus, organ or system involvement unspecified; N00.9 Acute nephritic syndrome with unspecified morphologic changes; D64.9 Anemia, unspecified; E83.30 Disorder of phosphorus metabolism, unspecified; N25.81 Secondary hyperparathyroidism of renal origin; R80.9 Proteinuria, unspecified; D47.2 Monoclonal gammopathy; N30.00 Acute cystitis without hematuria; B19.10 Unspecified viral hepatitis B without hepatic coma; B17.10 Acute hepatitis C without hepatic coma
CPT/HCPCS: 36415; 76770; 80048; 81001; 82570; 83516; 83883; 83970; 84100; 84155; 84156; 84165; 84166; 85014; 85018; 86038; 86160; 86225; 86256; 86704; 86706; 86803; 87086; 87340

== ENCOUNTER 2023-02-24 13:52 | Inpatient (IN) | payer MEDICARE, MEDICAID, SELFPAY ==
[2022-09-29 10:06] VITALS: BMI 24.5
[2023-02-24] VITALS (40 sets, daily range): BP systolic 141–233; BP diastolic 66–117; PULSE 71–101; RESP 12–34; TEMP 36.3–36.8; O2SAT 87–100; BMI 20.9; BMI 19.8
--- NOTE | 2023-02-24 13:53 | DI.CT.S_ITS ---
PROCEDURE: CT ANGIO HEAD AND NECK INDICATIONS: confusion TECHNIQUE: After the administration of intravenous contrast, 1 mm thick sections acquired from the aortic arch through the [place]. 3-dimensional moohuzr-xzkvdfowu-ryxrpjdiwf (MIP) and/or volume rendering reformats were acquired of the central intracranial vasculature and neck separately. For radiation dose reduction, the following was used: automated exposure control, adjustment of mA and/or kV according to patient size. COMPARISON: [facility], CT, CT STROKE, 02/24/2023, 14:00. FINDINGS: Image quality: Diagnostic. BRAIN: CSF spaces: Ventricles are normal in size and shape. Basal cisterns are patent. No extra-axial fluid collections. Brain: No midline shift. No intracranial bleeds or masses. Morton-white matter interface appears intact. Moderate to severe small vessel ischemic change. Skull and face: Calvarium and facial bones appear intact, without suspicious lesions. Orbits appear normal. Sinuses: Sinuses and mastoids are clear. HEAD CT ANGIOGRAPHY: Anterior circulation: Intracranial internal carotid arteries are normal in size and flow. The flow within the paired anterior cerebral arteries is normal and symmetric. The flow within the middle cerebral arteries is normal and symmetric. The anterior communicating artery is seen. No aneurysms are seen. Posterior circulation: Visualized portions of the vertebral arteries demonstrate normal caliber, and join to form a normal appearing basilar artery. Flow within the posterior cerebral arteries is normal and symmetric. No aneurysms are seen. NECK CT ANGIOGRAPHY: Carotid system: The great vessels demonstrate a conventional anatomy as they arise from the aortic arch. The origins of the common carotid arteries appear patent. The common carotid arteries demonstrate normal caliber and courses. Bilateral carotid bifurcation calcifications. Bilateral proximal internal carotid artery mild stenotic disease, less than 50%. Posterior circulation: The origins of the vertebral arteries both appear widely patent. The more superior extracranial portions of both vertebral arteries also demonstrate normal courses and calibers. They join to form a normal appearing basilar artery. Soft tissues: Visualized neck soft tissues demonstrate no suspicious abnormalities. Bones: No suspicious bony lesions. Visualized cervical spine appears normally aligned. IMPRESSION: 1. As seen on the CT head, there is no acute intracranial process. There is moderate to severe small vessel ischemic change. 2. Unremarkable CTA head. No stenosis, aneurysm, occlusion, or focal filling defect. 3. Bilateral less than 50% proximal internal carotid artery stenosis. Comment: Findings were discussed with Dr. Hooker on 02.24.23 at 14:34 hours Any quantitative measurements of stenosis were performed using NASCET criteria. Dictated by: Lucien Thompson M.D. on 02/24/2023 at 14:29 Approved by: Lucien Thompson M.D. on 02/24/2023 at 14:35
--- NOTE | 2023-02-24 13:53 | DI.CT.S_ITS ---
PROCEDURE: CT STROKE INDICATIONS: confusion TECHNIQUE: Noncontrast 4.5 mm thick angled axial sections acquired from the foramen magnum to the vertex, with coronal reformats. For radiation dose reduction, the following was used: automated exposure control, adjustment of mA and/or kV according to patient size. COMPARISON: None. FINDINGS: Image quality: Excellent. CSF spaces: Basal cisterns are patent. No extra-axial fluid collections. The ventricles are symmetric in size and shape. Brain: No intracranial bleeds or masses. There is a moderate cerebral volume loss with resultant ventricular and sulcal prominence. There are moderate periventricular and deep white matter chronic small vessel ischemic changes. There is intracranial internal carotid artery atherosclerosis. Skull and face: Calvarium and visualized facial bones appear intact, without suspicious lesions. Sinuses: Visualized sinuses and mastoids are clear. IMPRESSION: 1. No acute intracranial abnormalities. 2. Cerebral volume loss and chronic microvascular ischemic changes. The preliminary result was discussed with Dr. Hooker in ER. This study fulfills neurological imaging criteria for inclusion or exclusion of acute stroke therapies based on available published neurological guidelines. Dictated by: Silverio Hutchison M.D. on 02/24/2023 at 14:02 Approved by: Silverio Hutchison M.D. on 02/24/2023 at 14:04
[2023-02-24 14:08] LABS: Add Manual Diff / Slide Review NO; Basophils Absolute Auto 100 /uL (0-100); Basophils Percent Auto 1.4 % (0-2); Eosinophils Absolute Auto 0 /uL (0-450); Eosinophils Percent Auto 0.4 % (2-4); Hematocrit 30.8 % (36-46); Lymphocytes Absolute Auto 2700 /uL (1100-4500); Lymphocytes Percent Auto 25.7 % (25-40); Mean Corpuscular HGB Conc 35.8 % (30-36); Mean Corpuscular Hemoglobin 32.2 PG (26-34); Monocytes Absolute Auto 1000 /uL (0-900); Monocytes Percent Auto 9.9 % (3-14); Neutrophils Absolute Auto 6500 /uL (1500-7000); Neutrophils Percent Auto 62.6 % (50-75); Platelet Count 426 X10^3/uL (150-400); Red Blood Cell Count 3.42 X10^6/uL (4.0-5.2); White Blood Cell Count 10.3 X10^3/uL (4.5-11.0)
[2023-02-24 14:13] LABS: Prothrombin Time 10.9 SECONDS (10.1-12.7)
[2023-02-24 14:15] LABS: PTT Partial Thromboplastin Tim 27 SECONDS (26-36)
[2023-02-24 14:20] LABS: Alanine Aminotransferase 25 IU/L (<35); Albumin 4.2 g/dL (3.5-5.0); Albumin Globulin Ratio 1.3 (1.0-2.8); Alkaline Phosphatase 93 U/L (38-126); Aspartate Aminotransferase 46 IU/L (14-36); BUN Creatinine Ratio 15.1 (6-22); Bilirubin Total 0.6 mg/dL (0.2-1.3); Blood Urea Nitrogen 22 mg/dL (7-17); Calcium 9.5 mg/dL (8.4-10.2); Carbon Dioxide 30 mmol/L (22-32); Creatine Kinase 414 U/L (30-135); Estimated Glomerular Filt Rate 38 mL/min (>60); Ethanol (ETOH) < 10 mg/dL; Globulin 3.2 g/dL (1.7-4.1); Glucose 158 mg/dL (80-110); HEMOLYSIS < 15 (0-50); Potassium 3.6 mmol/L (3.4-5.1); Total Protein 7.4 g/dL (6.3-8.2)
[2023-02-24 14:23] LABS: Sodium 115 mmol/L (137-145)
--- NOTE | 2023-02-24 14:25 | ED_ITS ---
HPI - Neuro Symptoms/Deficit General Chief Complaint: Neuro Symptoms/Deficit Stated Complaint: Confusion and right facial droop Time Seen by Provider: 02/24/23 13:58 Source: EMS Mode of arrival: EMS History of Present Illness HPI Narrative: Patient is 72-year-old female brought in today as a code stroke. Last known well was at 1:30 a.m.. She was at [facility] when the javascript programmer noticed that she was very confused. She initially was noted to have some right-sided weakness and right-sided facial droop very confused her right-sided weakness improved with EMS but she remains confused. Not having any other complaints. EMS reports that she is very sharp. On Anticoagulants: No Related Data Home Medications Medication Instructions Recorded Confirmed acetaminophen 325 mg tablet 975 mg PO TID PRN Pain, Moderate 02/24/23 02/24/23 Previous Rx's Medication Instructions Recorded blood-glucose meter (Blood Glucose #1 ea 06/04/21 Monitoring kit) lancets #100 ea 06/04/21 blood sugar diagnostic (Blood #100 ea 11/27/22 Glucose Test strips) Allergies Allergy/AdvReac Type Severity Reaction Status Date / Time metformin Allergy Unknown Verified 10/07/22 11:26 Review of Systems Review of Systems ROS Unobtainable: All systems reviewed & are unremarkable except as noted in HPI and below Hematologic/Lymphatic On Anticoagulants: No Patient History Medical History Acquired hypothyroidism Ankle fracture, left Carpal tunnel syndrome (~1997) Chronic right-sided low back pain with right-sided sciatica (12/08/16) CKD stage G4/A3, GFR 15-29 and albumin creatinine ratio >300 mg/g Diabetes mellitus type 2 in nonobese Dysphagia Essential hypertension GERD with esophagitis Hyperlipidemia associated with type 2 diabetes mellitus Wrist fracture, right (11/2016) Surgical History History of carpal tunnel repair (1997) Family History Mother Age: 91 Diabetes mellitus Father Dementia Social History household members: none lives independently: Yes Smoking Status: Never smoker alcohol intake: current Smoking Status: Never smoker alcohol intake frequency: holidays/special occasions only Substance Use Type: does not use Exam Initial Vital Signs Initial Vital Signs: Vital Signs Temperature 98.3 F 02/24/23 13:52 Pulse Rate 101 H 02/24/23 13:52 Respiratory Rate 16 02/24/23 13:52 Blood Pressure 213/106 H 02/24/23 13:52 Pulse Oximetry 100 02/24/23 13:52 Oxygen Delivery Method Room Air 02/24/23 13:52 GENERAL: Alert 72-year-old female HEENT: Head atraumatic,EOMI, pupils reactive, face symmetric, moist mucous membranes CARDIOVASCULAR: Regular rate and rhythm without murmurs, rubs or gallops. RESPIRATORY: Breath sounds equal bilaterally, no wheezes rales or rhonchi. ABDOMEN: Soft, nontender. Normoactive bowel sounds all 4 quadrants. No guarding or rebound. EXTREMITIES: Normal range of motion, no clubbing or edema. Neurovascularly in tact NEUROLOGICAL: Alert following commands Cranial nerves II through XII grossly intact. Good oiohix-og-fyeg, good [id number], strength equal bilaterally, difficulty with word finding, sensation in tact to soft touch bilaterally, no visual changes, no facial droop SKIN: Warm, dry, no laceration, no petechiae, no rashes or lesions. Scores NIH Stroke Scale Level of Conciousness: Alert, keenly responsive Ask month/age: Answers both questions correctly. Open/close eyes, close hand: Performs both tasks correctly Best gaze horizontal: Normal Visual dominguez: No visual loss Facial palsy: Normal symetrical movement Left arm drift: No drift for full 10 sec Right arm drift: No drift for full 10 sec Left leg drift: No drift for full 5 sec Right leg drift: No drift for full 5 sec Limb ataxia: Absent Sensory on face/arms/legs: Normal, no sensory loss Best language: No aphasia, normal Dysarthria: Normal Extinction or inattention: No abnormality Total NIH Stroke scale score: 0 Course Orders Ordered: ED Orders 02/24/23 13:[address] angio head and neck Stat 02/24/23 13:58 EKG-12 Lead Stat 02/24/23 14:01 Complete Blood Count AUTO DIFF Stat Comprehensive Metabolic Panel Stat Ethanol (ETOH) Stat PTT Partial Thromboplastin Giovany Stat Prothrombin Time INR Stat Troponin & CK Cardiac Panel Stat 02/24/23 14:22 COVID19 -Nasal RAPID Stat 02/24/23 14:28 TSH [Thyroid Stimulating Hormone] Stat 02/24/23 14:50 Urinalysis and Microscopic Stat Urine Drug Screen, Rapid Stat Acetaminophen (Acetaminophen 325 Mg Tablet) 650 mg PO Q6H [facility] Last Admin: 02/24/23 18:22 Dose: Not Given Documented By: MICKEY Amlodipine Besylate (Amlodipine 5 Mg Tablet) 5 mg PO DAILY [facility] Last Admin: 02/24/23 18:22 Dose: 5 mg Documented By: MICKEY Aspirin (Aspirin Ec 81 Mg Tablet) 81 mg PO DAILY [facility] Last Admin: 02/24/23 18:22 Dose: 81 mg Documented By: MICKEY Sodium Chloride (Normal Saline 0.9%) 1,000 mls @ 100 mls/hr IV CONT [facility] Last Admin: 02/24/23 18:22 Dose: 100 mls/hr Documented By: MICKEY Naloxone HCl (Naloxone 0.4 Mg/Ml Vial) 0.2 mg IV Q2MIN PRN PRN Reason: Opiate Reversal Pantoprazole Sodium (Pantoprazole Dr 40 Mg Tablet) 40 mg PO 0700 [facility] Vital Signs Vital signs: Vital Signs - 8 hr 02/24/23 13:52 02/24/23 14:02 02/24/23 14:03 Temperature 98.3 F Pulse Rate 101 H 101 H 96 H Respiratory Rate 16 18 24 Blood Pressure 213/106 H Pulse Oximetry 100 92 99 Oxygen Delivery Method Room Air 02/24/23 14:03 02/24/23 14:11 02/24/23 14:11 Temperature Pulse Rate 95 H Respiratory Rate 21 Blood Pressure 213/106 H 198/101 H Pulse Oximetry 98 Oxygen Delivery Method 02/24/23 14:15 02/24/23 14:15 02/24/23 14:20 Temperature Pulse Rate 98 H 94 H Respiratory Rate 26 H 17 Blood Pressure 200/98 H Pulse Oximetry 98 Oxygen Delivery Method Room Air 02/24/23 14:20 02/24/23 14:25 02/24/23 14:25 Temperature Pulse Rate 93 H Respiratory Rate 24 Blood Pressure 197/102 H 179/99 H Pulse Oximetry 98 Oxygen Delivery Method 02/24/23 14:30 02/24/23 14:30 02/24/23 14:35 Temperature Pulse Rate 94 H 93 H Respiratory Rate 34 H 22 Blood Pressure 182/98 H Pulse Oximetry 98 97 Oxygen Delivery Method 02/24/23 14:35 02/24/23 14:40 02/24/23 14:40 Temperature Pulse Rate 90 Respiratory Rate 19 Blood Pressure 202/116 H 204/97 H Pulse Oximetry 99 Oxygen Delivery Method 02/24/23 14:45 02/24/23 14:45 02/24/23 14:55 Temperature Pulse Rate 90 96 H Respiratory Rate 22 16 Blood Pressure 181/101 H Pulse Oximetry 99 98 Oxygen Delivery Method 02/24/23 14:55 02/24/23 15:00 02/24/23 15:00 Temperature Pulse Rate 88 Respiratory Rate 13 Blood Pressure 233/117 H 190/106 H Pulse Oximetry 99 Oxygen Delivery Method 02/24/23 15:05 02/24/23 15:05 02/24/23 15:10 Temperature Pulse Rate 86 86 Respiratory Rate 18 18 Blood Pressure 198/107 H Pulse Oximetry 98 98 Oxygen Delivery Method 02/24/23 15:10 02/24/23 15:15 02/24/23 15:15 Temperature Pulse Rate 86 Respiratory Rate 22 Blood Pressure 197/110 H 219/108 H Pulse Oximetry 98 Oxygen Delivery Method 02/24/23 15:20 02/24/23 15:20 02/24/23 15:26 Temperature Pulse Rate 91 H 86 Respiratory Rate 26 H 17 Blood Pressure 221/116 H Pulse Oximetry 99 97 Oxygen Delivery Method 02/24/23 15:26 02/24/23 15:30 02/24/23 15:30 Temperature Pulse Rate 87 Respiratory Rate 19 Blood Pressure 204/102 H 207/104 H Pulse Oximetry 98 Oxygen Delivery Method MDM - Neuro Symptoms/Deficit Lab Data 02/24/23 14:01 02/24/23 18:20 Labs: Lab Results 02/24/23 02/24/23 02/24/23 Range/Units 14:01 14:01 14:01 WBC 10.3 (4.5-11.0) X10^3/uL RBC 3.42 L (4.0-5.2) X10^6/uL Hgb 11.0 L (12.0-16.0) g/dL Hct 30.8 L (36-46) % MCV 90.0 (80-100) fL MCH 32.2 (26-34) PG MCHC 35.8 (30-36) % RDW 13.0 (11.6-14.8) % Plt Count 426 H (150-400) X10^3/uL Neut % (Auto) 62.6 (50-75) % Lymph % (Auto) 25.7 (25-40) % [place] % (Auto) 9.9 (3-14) % Eos % (Auto) 0.4 L (2-4) % Baso % (Auto) 1.4 (0-2) % Neut # (Auto) 6500 (6731-6499) /uL Lymph # (Auto) 2700 (9658-4196) /uL [place] # (Auto) 1000 H (0-900) /uL Eos # (Auto) 0 (0-450) /uL Baso # (Auto) 100 (0-100) /uL PT 10.9 (10.1-12.7) SECONDS INR 1.0 (0.9-1.3) APTT 27 (26-36) SECONDS Sodium 115 L* (137-145) mmol/L Potassium 3.6 (3.4-5.1) mmol/L Chloride 76 L* (98-107) mmol/L Carbon Dioxide 30 (22-32) mmol/L BUN 22 H (7-17) mg/dL Creatinine 1.46 H (0.52-1.04) mg/dL Estimated GFR 38 L (>60) mL/min BUN/Creatinine Ratio 15.1 (6-22) Glucose 158 H (80-110) mg/dL Calcium 9.5 (8.4-10.2) mg/dL Total Bilirubin 0.6 (0.2-1.3) mg/dL AST 46 H (14-36) IU/L ALT 25 (<35) IU/L Alkaline Phosphatase 93 (38-126) U/L Total Creatine Kinase 414 H (30-135) U/L Troponin I 0.016 (0.01-0.034) ng/mL Total Protein 7.4 (6.3-8.2) g/dL Albumin 4.2 (3.5-5.0) g/dL Globulin 3.2 (1.7-4.1) g/dL Albumin/Globulin Ratio 1.3 (1.0-2.8) TSH (0.47-4.68) uIU/mL Urine Color Urine Appearance Urine pH (4.5-8.0) Ur Specific [place] (1.000-1.035) Urine Protein (Negative) Urine Glucose (UA) (Negative) g/dL Urine Ketones (NEGATIVE) Urine Occult Blood (Negative) Urine Nitrate (Negative) Urine Bilirubin (NEGATIVE) Urine Urobilinogen (0.2) E.U./dL Ur Leukocyte Esterase (NEGATIVE) Urine RBC (0-5/HPF) Urine WBC (0-5/HPF) Ur Squamous Epith Cells (0-5/HPF) Ur Transition Epith Cell (0-5/HPF) Ur Renal Epithelial Cell (0-1/HPF) Urine Bacteria (None) Ur Culture Indicated? Ur Random Sodium (30-90) mmol/L U Opiates 300ng/mL cut (Negative) Ur Oxycodone Screen (Negative) Urine Methadone Screen (Negative) Ur Barbiturates Screen (Negative) U Tricyclic Antidepress (Negative) Ur Phencyclidine Scrn (Negative) Ur Amphetamines Screen (Negative) U Methamphetamines Scrn (Negative) Ur MDMA Scrn (Ecstasy) (Negative) U Benzodiazepines Scrn (Negative) Urine Cocaine Screen (Negative) U Marijuana (THC) Screen (Negative) Ethyl Alcohol < 10 ( - 10) mg/dL SARS-CoV-2 (PCR) (Negative) 02/24/23 02/24/23 02/24/23 Range/Units 14:22 14:28 14:50 WBC (4.5-11.0) X10^3/uL RBC (4.0-5.2) X10^6/uL Hgb (12.0-16.0) g/dL Hct (36-46) % MCV (80-100) fL MCH (26-34) PG MCHC (30-36) % RDW (11.6-14.8) % Plt Count (150-400) X10^3/uL Neut % (Auto) (50-75) % Lymph % (Auto) (25-40) % [place] % (Auto) (3-14) % Eos % (Auto) (2-4) % Baso % (Auto) (0-2) % Neut # (Auto) (1272-7319) /uL Lymph # (Auto) (1337-1386) /uL [place] # (Auto) (0-900) /uL Eos # (Auto) (0-450) /uL Baso # (Auto) (0-100) /uL PT (10.1-12.7) SECONDS INR (0.9-1.3) APTT (26-36) SECONDS Sodium (137-145) mmol/L Potassium (3.4-5.1) mmol/L Chloride (98-107) mmol/L Carbon Dioxide (22-32) mmol/L BUN (7-17) mg/dL Creatinine (0.52-1.04) mg/dL Estimated GFR (>60) mL/min BUN/Creatinine Ratio (6-22) Glucose (80-110) mg/dL Calcium (8.4-10.2) mg/dL Total Bilirubin (0.2-1.3) mg/dL AST (14-36) IU/L ALT (<35) IU/L Alkaline Phosphatase (38-126) U/L Total Creatine Kinase (30-135) U/L Troponin I (0.01-0.034) ng/mL Total Protein (6.3-8.2) g/dL Albumin (3.5-5.0) g/dL Globulin (1.7-4.1) g/dL Albumin/Globulin Ratio (1.0-2.8) TSH 3.99 (0.47-4.68) uIU/mL Urine Color Urine Appearance Urine pH (4.5-8.0) Ur Specific [place] (1.000-1.035) Urine Protein (Negative) Urine Glucose (UA) (Negative) g/dL Urine Ketones (NEGATIVE) Urine Occult Blood (Negative) Urine Nitrate (Negative) Urine Bilirubin (NEGATIVE) Urine Urobilinogen (0.2) E.U./dL Ur Leukocyte Esterase (NEGATIVE) Urine RBC (0-5/HPF) Urine WBC (0-5/HPF) Ur Squamous Epith Cells (0-5/HPF) Ur Transition Epith Cell (0-5/HPF) Ur Renal Epithelial Cell (0-1/HPF) Urine Bacteria (None) Ur Culture Indicated? Ur Random Sodium (30-90) mmol/L U Opiates 300ng/mL cut Negative (Negative) Ur Oxycodone Screen Negative (Negative) Urine Methadone Screen Negative (Negative) Ur Barbiturates Screen Negative (Negative) U Tricyclic Antidepress Negative (Negative) Ur Phencyclidine Scrn Negative (Negative) Ur Amphetamines Screen Negative (Negative) U Methamphetamines Scrn Negative (Negative) Ur MDMA Scrn (Ecstasy) Negative (Negative) U Benzodiazepines Scrn Negative (Negative) Urine Cocaine Screen Negative (Negative) U Marijuana (THC) Screen Negative (Negative) Ethyl Alcohol ( - 10) mg/dL SARS-CoV-2 (PCR) Negative (Negative) 02/24/23 02/24/23 Range/Units 14:50 14:50 WBC (4.5-11.0) X10^3/uL RBC (4.0-5.2) X10^6/uL Hgb (12.0-16.0) g/dL Hct (36-46) % MCV (80-100) fL MCH (26-34) PG MCHC (30-36) % RDW (11.6-14.8) % Plt Count (150-400) X10^3/uL Neut % (Auto) (50-75) % Lymph % (Auto) (25-40) % [place] % (Auto) (3-14) % Eos % (Auto) (2-4) % Baso % (Auto) (0-2) % Neut # (Auto) (8315-1348) /uL Lymph # (Auto) (9219-8927) /uL [place] # (Auto) (0-900) /uL Eos # (Auto) (0-450) /uL Baso # (Auto) (0-100) /uL PT (10.1-12.7) SECONDS INR (0.9-1.3) APTT (26-36) SECONDS Sodium (137-145) mmol/L Potassium (3.4-5.1) mmol/L Chloride (98-107) mmol/L Carbon Dioxide (22-32) mmol/L BUN (7-17) mg/dL Creatinine (0.52-1.04) mg/dL Estimated GFR (>60) mL/min BUN/Creatinine Ratio (6-22) Glucose (80-110) mg/dL Calcium (8.4-10.2) mg/dL Total Bilirubin (0.2-1.3) mg/dL AST (14-36) IU/L ALT (<35) IU/L Alkaline Phosphatase (38-126) U/L Total Creatine Kinase (30-135) U/L Troponin I (0.01-0.034) ng/mL Total Protein (6.3-8.2) g/dL Albumin (3.5-5.0) g/dL Globulin (1.7-4.1) g/dL Albumin/Globulin Ratio (1.0-2.8) TSH (0.47-4.68) uIU/mL Urine Color Yellow Urine Appearance Clear Urine pH 7.5 (4.5-8.0) Ur Specific [place] 1.010 (1.000-1.035) Urine Protein 2+ H (Negative) Urine Glucose (UA) Negative (Negative) g/dL Urine Ketones Negative (NEGATIVE) Urine Occult Blood Trace-intact (Negative) Urine Nitrate Negative (Negative) Urine Bilirubin Negative (NEGATIVE) Urine Urobilinogen 0.2 (0.2) E.U./dL Ur Leukocyte Esterase Trace H (NEGATIVE) Urine RBC 5-10/hpf H (0-5/HPF) Urine WBC 0-1/hpf (0-5/HPF) Ur Squamous Epith Cells None seen (0-5/HPF) Ur Transition Epith Cell 0-1/hpf (0-5/HPF) Ur Renal Epithelial Cell 0-1/hpf (0-1/HPF) Urine Bacteria Occasional (0-1) (None) Ur Culture Indicated? Cult not indicated Ur Random Sodium 29 L (30-90) mmol/L U Opiates 300ng/mL cut (Negative) Ur Oxycodone Screen (Negative) Urine Methadone Screen (Negative) Ur Barbiturates Screen (Negative) U Tricyclic Antidepress (Negative) Ur Phencyclidine Scrn (Negative) Ur Amphetamines Screen (Negative) U Methamphetamines Scrn (Negative) Ur MDMA Scrn (Ecstasy) (Negative) U Benzodiazepines Scrn (Negative) Urine Cocaine Screen (Negative) U Marijuana (THC) Screen (Negative) Ethyl Alcohol ( - 10) mg/dL SARS-CoV-2 (PCR) (Negative) Point of Care Testing Glucose POC [address] scan - head: Radiologist's Impression: PROCEDURE:? CT STROKE ? INDICATIONS:? confusion ? TECHNIQUE:? Noncontrast 4.5 mm thick angled axial sections acquired from the foramen magnum to the vertex, with coronal reformats.? For radiation dose reduction, the following was used:? automated exposure control, adjustment of mA and/or kV according to patient size.? ? COMPARISON:? None. ? FINDINGS:? Image quality:? Excellent.? ? CSF spaces:? Basal cisterns are patent.? No extra-axial fluid collections.? The ventricles are symmetric in size and shape.? ? Brain:? No intracranial bleeds or masses.? There is a moderate cerebral volume loss with resultant ventricular and sulcal prominence.? There are moderate periventricular and deep white matter chronic small vessel ischemic changes.? There is intracranial internal carotid artery atherosclerosis.? ? Skull and face:? Calvarium and visualized facial bones appear intact, without suspicious lesions.? ? Sinuses:? Visualized sinuses and mastoids are clear.? ? IMPRESSION:? ? 1. No acute intracranial abnormalities. ? 2. Cerebral volume loss and chronic microvascular ischemic changes. ? The preliminary result was discussed with Dr. Hooker in ER. ? This study fulfills neurological imaging criteria for inclusion or exclusion of acute stroke therapies based on available published neurological guidelines.? ? ? Dictated by: Silverio Hutchison M.D. on 02/24/2023 at 14:02 ? ? Approved by: Silverio Hutchison M.D. on 02/24/2023 at 14:04 ? CTA - brain/neck: Radiologist's Impression: PROCEDURE:? CT ANGIO HEAD AND NECK ? INDICATIONS:? confusion ? TECHNIQUE:? After the administration of intravenous contrast, 1 mm thick sections acquired from the aortic arch through the [place] of [place].? 3-dimensional uoylcye-qimgaacow-egeippdhoo (MIP) and/or volume rendering reformats were acquired of the central intracranial vasculature and neck separately. For radiation dose reduction, the following was used:? automated exposure control, adjustment of mA and/or kV according to patient size.? ? COMPARISON:? [facility], CT, CT STROKE, 02/24/2023, 14:00. ? FINDINGS:? Image quality:? Diagnostic.? ? BRAIN:? CSF spaces:? Ventricles are normal in size and shape.? Basal cisterns are patent.? No extra-axial fluid collections.? ? Brain:? No midline shift.? No intracranial bleeds or masses.? Morton-white matter interface appears intact.? Moderate to severe small vessel ischemic change.? ? Skull and face:? Calvarium and facial bones appear intact, without suspicious lesions.? Orbits appear normal.? ? Sinuses:? Sinuses and mastoids are clear.? ? HEAD CT ANGIOGRAPHY:? Anterior circulation:? Intracranial internal carotid arteries are normal in size and flow.? The flow within the paired anterior cerebral arteries is normal and symmetric.? The flow within the middle cerebral arteries is normal and symmetric.? The anterior communicating artery is seen.? No aneurysms are seen.? ? Posterior circulation:? Visualized portions of the vertebral arteries demonstrate normal caliber, and join to form a normal appearing basilar artery.? Flow within the posterior cerebral arteries is normal and symmetric.? No aneurysms are seen.? ? NECK CT ANGIOGRAPHY:? Carotid system:? The great vessels demonstrate a conventional anatomy as they arise from the aortic arch.? The origins of the common carotid arteries appear patent.? The common carotid arteries demonstrate normal caliber and courses.? Bilateral carotid bifurcation calcifications.? Bilateral proximal internal carotid artery mild stenotic disease, less than 50%. ? Posterior circulation:? The origins of the vertebral arteries both appear widely patent.? The more superior extracranial portions of both vertebral arteries also demonstrate normal courses and calibers.? They join to form a normal appearing basilar artery.? ? Soft tissues:? Visualized neck soft tissues demonstrate no suspicious a bnormalities.? ? Bones:? No suspicious bony lesions.? Visualized cervical spine appears normally aligned.? IMPRESSION:? ? 1. As seen on the CT head, there is no acute intracranial process.? There is moderate to severe small vessel ischemic change. ? 2. Unremarkable CTA head.? No stenosis, aneurysm, occlusion, or focal filling defect. ? 3. Bilateral less than 50% proximal internal carotid artery stenosis. ? Comment: Findings were discussed with Dr. Hooker on? 02.24.23 at 14:34 hours ? Any quantitative measurements of stenosis were performed using NASCET criteria.? ? ? Dictated by: Lucien Thompson M.D. on 02/24/2023 at 14:29? ECG Data Interpretation: Sinus rhythm rate 96 CT interval 206 QRS [address] changes no T-wave inversions MDM Narrative Medical decision making narrative: Patient 72-year-old female brought in as code stroke last known well at 1:30 a.m. however symptoms are improving. She said it has some obvious word trouble finding NIH stroke scale of 1. Initially stroke team at [facility] was called however at the same time her sodium returned at 1:15 a.m.. At this time he is not a tPA candidate for multiple read it reasons including low NIH stroke scale improving symptoms and other cause of confusion. Patient's confusion actually improves and she is able to remember and give a history. She remembers being at [facility]. She also states that she is been drinking quite bit of water in attempt to stay hydrated with heat. He is not had fever or chills. She is no prior history of stroke. She is noted to be quite hypertensive as well. Blood work has reviewed no leukocytosis or anemia sodium is 115 chloride 76 creatinine is 1.46 glucose of 150. Chronic kidney disease remained stable Dr. Verduzco updated patient's symptoms test results and accepts patient. Discharge Plan Departure Patient Disposition: Admitted As Inpatient Clinical Impression: Transient cerebral ischemia, Acute hyponatremia Admit Date/Time: 02/24/23 15:33 Admit Provider: [place] Verduzco
[2023-02-24 14:26] LABS: Chloride 76 mmol/L (98-107)
[2023-02-24 14:31] LABS: Troponin I 0.016 ng/mL (0.01-0.034)
[2023-02-24 14:44] LABS: COVID19 -Nasal RAPID Negative (Negative)
[2023-02-24 15:11] LABS: Appearance Urine UA CLEAR; Bilirubin Urine UA NEGATIVE (NEGATIVE); Color Urine UA YELLOW; Glucose Urine UA NEGATIVE (Negative); Ketones Urine UA NEGATIVE (NEGATIVE); Leukocyte Esterase Urine UA TRACE (NEGATIVE); Nitrite Urine UA NEGATIVE (Negative); Occult Blood Urine UA TRACE-INTACT (Negative); Protein Urine UA 2+ (Negative); Urobilinogen Urine UA 0.2 E.U./dL (0.2); pH Urine UA 7.5 (4.5-8.0)
[2023-02-24 15:11] LABS: Thyroid Stimulating Hormone 3.99 uIU/mL (0.47-4.68)
[2023-02-24 15:14] LABS: UR Morphine/Opiate cutoff 300 Negative (Negative); Ur Creatinine Normal (Normal); Ur Specific Gravity Normal (Normal); Urine Amphetamines Negative (Negative); Urine Barbiturates Negative (Negative); Urine Benzodiazepines Negative (Negative); Urine Cocaine Negative (Negative); Urine MDMA Negative (Negative); Urine Methadone Negative (Negative); Urine Methamphetamines Negative (Negative); Urine Oxycodone Negative (Negative); Urine Phencyclidine Negative (Negative); Urine Tetrahydrocannabinol Negative (Negative); Urine Tricyclic Antidepressant Negative (Negative); Urine pH Normal (Normal)
[2023-02-24 15:44] LABS: Bacteria Urine Occasional (0-1); Culture Indicated Urine Cult Not Indicated; RBC Urine 5-10/HPF (0-5/HPF); Renal Epithelial Cells Urine 0-1/HPF (0-1/HPF); Squamous Epithelial Cell Urine None Seen (0-5/HPF); Transitional Epi Cells Urine 0-1/HPF (0-5/HPF); WBC Urine 0-1/HPF (0-5/HPF)
--- NOTE | 2023-02-24 17:39 | PM.HP.1 ---
History of Present Illness History of Present Illness Date Patient Seen: 02/24/23 Time Patient Seen: 17:40 Date of Onset of Symptoms: 02/24/23 Chief complaint: Confusion and right facial droop Narrative: The patient is a 72-year-old female with chronic kidney disease as well as diabetes. Currently not taking any medication he was on metformin for many years. She states her blood sugars are now controlled without medications. She does have chronic epigastric pain and takes antacid remedies from a local pharmacy. He notes that she is had about a 20 lb weight loss over the past year because of her epigastric pain. Because of this, her appetite is also quite poor. She went to [facility] to get antacids today, she then became confused and was unable to speak or find her medications. 911 was called and she was brought to the emergency department as a code stroke. Initial imaging was unremarkable, her sodium was 115. She does admit to some polydipsia recently with the heat as well as a very poor appetite. She denies any history of low sodium. Her blood pressure is also very elevated both in the emergency department. She denies a history of retention or taking blood pressure medications. He also denies a history of stroke or TIA. She was not given fluids in the are made but felt much better upon arrival. Tele neurology recommended no stroke treatment given her low sodium. FORMERLY [facility] Medical History Acquired hypothyroidism Ankle fracture, left Carpal tunnel syndrome (~1997) Chronic right-sided low back pain with right-sided sciatica (12/08/16) CKD stage G4/A3, GFR 15-29 and albumin creatinine ratio >300 mg/g Diabetes mellitus type 2 in nonobese Dysphagia Essential hypertension GERD with esophagitis Hyperlipidemia associated with type 2 diabetes mellitus Wrist fracture, right (11/2016) Surgical History History of carpal tunnel repair (1997) Family History Mother Age: 91 Diabetes mellitus Father Dementia Social History household members: none lives independently: Yes Smoking Status: Never smoker alcohol intake: current Meds Home Medications and Allergies Home Medications Medication Instructions Recorded Confirmed Type blood-glucose meter (Blood Glucose #1 ea 06/04/21 02/24/23 Rx Monitoring kit) lancets #100 ea 06/04/21 02/24/23 Rx blood sugar diagnostic (Blood #100 ea 11/27/22 02/24/23 Rx Glucose Test strips) acetaminophen 325 mg tablet 975 mg PO TID PRN Pain, Moderate 02/24/23 02/24/23 History Allergies Allergy/AdvReac Type Severity Reaction Status Date / Time metformin Allergy Unknown Verified 10/07/22 11:26 Review of Systems Review of Systems Narrative: She notes epigastric pain, poor appetite and weight loss. She also her confusion this morning. Otherwise she is been well and all other systems reviewed and otherwise unremarkable. Exam Vital Signs (past 8 hours): - 02/24/23 13:52 02/24/23 14:02 02/24/23 14:03 Temperature 98.3 F Pulse Rate 101 H 101 H 96 H Respiratory Rate 16 18 24 Blood Pressure 213/106 H Pulse Oximetry 100 92 99 Oxygen Delivery Method Room Air 02/24/23 14:03 02/24/23 14:11 02/24/23 14:11 Temperature Pulse Rate 95 H Respiratory Rate 21 Blood Pressure 213/106 H 198/101 H Pulse Oximetry 98 Oxygen Delivery Method 02/24/23 14:15 02/24/23 14:15 02/24/23 14:20 Temperature Pulse Rate 98 H 94 H Respiratory Rate 26 H 17 Blood Pressure 200/98 H Pulse Oximetry 98 Oxygen Delivery Method Room Air 02/24/23 14:20 02/24/23 14:25 02/24/23 14:25 Temperature Pulse Rate 93 H Respiratory Rate 24 Blood Pressure 197/102 H 179/99 H Pulse Oximetry 98 Oxygen Delivery Method 02/24/23 14:30 02/24/23 14:30 02/24/23 14:35 Temperature Pulse Rate 94 H 93 H Respiratory Rate 34 H 22 Blood Pressure 182/98 H Pulse Oximetry 98 97 Oxygen Delivery Method 02/24/23 14:35 02/24/23 14:40 02/24/23 14:40 Temperature Pulse Rate 90 Respiratory Rate 19 Blood Pressure 202/116 H 204/97 H Pulse Oximetry 99 Oxygen Delivery Method 02/24/23 14:45 02/24/23 14:45 02/24/23 14:55 Temperature Pulse Rate 90 96 H Respiratory Rate 22 16 Blood Pressure 181/101 H Pulse Oximetry 99 98 Oxygen Delivery Method 02/24/23 14:55 02/24/23 15:00 02/24/23 15:00 Temperature Pulse Rate 88 Respiratory Rate 13 Blood Pressure 233/117 H 190/106 H Pulse Oximetry 99 Oxygen Delivery Method 02/24/23 15:05 02/24/23 15:05 02/24/23 15:10 Temperature Pulse Rate 86 86 Respiratory Rate 18 18 Blood Pressure 198/107 H Pulse Oximetry 98 98 Oxygen Delivery Method 02/24/23 15:10 02/24/23 15:15 02/24/23 15:15 Temperature Pulse Rate 86 Respiratory Rate 22 Blood Pressure 197/110 H 219/108 H Pulse Oximetry 98 Oxygen Delivery Method 02/24/23 15:20 02/24/23 15:20 02/24/23 15:26 Temperature Pulse Rate 91 H 86 Respiratory Rate 26 H 17 Blood Pressure 221/116 H Pulse Oximetry 99 97 Oxygen Delivery Method 02/24/23 15:26 02/24/23 15:30 02/24/23 15:30 Temperature Pulse Rate 87 Respiratory Rate 19 Blood Pressure 204/102 H 207/104 H Pulse Oximetry 98 Oxygen Delivery Method 02/24/23 15:35 02/24/23 15:35 02/24/23 15:41 Temperature Pulse Rate 86 90 Respiratory Rate 19 15 Blood Pressure 199/94 H Pulse Oximetry 99 100 Oxygen Delivery Method 02/24/23 15:41 02/24/23 15:45 02/24/23 15:45 Temperature Pulse Rate 92 H Respiratory Rate 20 Blood Pressure 187/102 H 194/106 H Pulse Oximetry 99 Oxygen Delivery Method 02/24/23 16:00 Temperature Pulse Rate 83 Respiratory Rate 21 Blood Pressure Pulse Oximetry 98 Oxygen Delivery Method Oxygen Delivery Method Room Air Narrative Exam Narrative: No acute distress, fluent speech and normal judgment. Cranial nerves are intact. EOMI. The lungs are clear with normal effort. The heart is regular, no murmur. The abdomen is soft, and non-tender. The extremities are free of edema. The patient has normal skin without rash. Joints are also unremarkable. Motor strength is 5 of 5 all extremities. Speech is normal. Her skin appears to have normal turgor. Objective Labs 02/24/23 14:01 02/24/23 14:01 Labs: Laboratory Results - last 24 hr 02/24/23 02/24/23 02/24/23 14:01 14:01 14:01 WBC 10.3 RBC 3.42 L Hgb 11.0 L Hct 30.8 L MCV 90.0 MCH 32.2 MCHC 35.8 RDW 13.0 Plt Count 426 H Neut % (Auto) 62.6 Lymph % (Auto) 25.7 [place] % (Auto) 9.9 Eos % (Auto) 0.4 L Baso % (Auto) 1.4 Neut # (Auto) 6500 Lymph # (Auto) 2700 [place] # (Auto) 1000 H Eos # (Auto) 0 Baso # (Auto) 100 PT 10.9 INR 1.0 APTT 27 Sodium 115 L* Potassium 3.6 Chloride 76 L* Carbon Dioxide 30 BUN 22 H Creatinine 1.46 H Estimated GFR 38 L BUN/Creatinine Ratio 15.1 Glucose 158 H Calcium 9.5 Total Bilirubin 0.6 AST 46 H ALT 25 Alkaline Phosphatase 93 Total Creatine Kinase 414 H Troponin I 0.016 Total Protein 7.4 Albumin 4.2 Globulin 3.2 Albumin/Globulin Ratio 1.3 TSH Urine Color Urine Appearance Urine pH Ur Specific [place] Urine Protein Urine Glucose (UA) Urine Ketones Urine Occult Blood Urine Nitrate Urine Bilirubin Urine Urobilinogen Ur Leukocyte Esterase Urine RBC Urine WBC Ur Squamous Epith Cells Ur Transition Epith Cell Ur Renal Epithelial Cell Urine Bacteria Ur Culture Indicated? U Opiates 300ng/mL cut Ur Oxycodone Screen Urine Methadone Screen Ur Barbiturates Screen U Tricyclic Antidepress Ur Phencyclidine Scrn Ur Amphetamines Screen U Methamphetamines Scrn Ur MDMA Scrn (Ecstasy) U Benzodiazepines Scrn Urine Cocaine Screen U Marijuana (THC) Screen Ethyl Alcohol < 10 SARS-CoV-2 (PCR) 02/24/23 02/24/23 02/24/23 14:22 14:28 14:50 WBC RBC Hgb Hct MCV MCH MCHC RDW Plt Count Neut % (Auto) Lymph % (Auto) [place] % (Auto) Eos % (Auto) Baso % (Auto) Neut # (Auto) Lymph # (Auto) [place] # (Auto) Eos # (Auto) Baso # (Auto) PT INR APTT Sodium Potassium Chloride Carbon Dioxide BUN Creatinine Estimated GFR BUN/Creatinine Ratio Glucose Calcium Total Bilirubin AST ALT Alkaline Phosphatase Total Creatine Kinase Troponin I Total Protein Albumin Globulin Albumin/Globulin Ratio TSH 3.99 Urine Color Urine Appearance Urine pH Ur Specific [place] Urine Protein Urine Glucose (UA) Urine Ketones Urine Occult Blood Urine Nitrate Urine Bilirubin Urine Urobilinogen Ur Leukocyte Esterase Urine RBC Urine WBC Ur Squamous Epith Cells Ur Transition Epith Cell Ur Renal Epithelial Cell Urine Bacteria Ur Culture Indicated? U Opiates 300ng/mL cut Negative Ur Oxycodone Screen Negative Urine Methadone Screen Negative Ur Barbiturates Screen Negative U Tricyclic Antidepress Negative Ur Phencyclidine Scrn Negative Ur Amphetamines Screen Negative U Methamphetamines Scrn Negative Ur MDMA Scrn (Ecstasy) Negative U Benzodiazepines Scrn Negative Urine Cocaine Screen Negative U Marijuana (THC) Screen Negative Ethyl Alcohol SARS-CoV-2 (PCR) Negative 02/24/23 14:50 WBC RBC Hgb Hct MCV MCH MCHC RDW Plt Count Neut % (Auto) Lymph % (Auto) [place] % (Auto) Eos % (Auto) Baso % (Auto) Neut # (Auto) Lymph # (Auto) [place] # (Auto) Eos # (Auto) Baso # (Auto) PT INR APTT Sodium Potassium Chloride Carbon Dioxide BUN Creatinine Estimated GFR BUN/Creatinine Ratio Glucose Calcium Total Bilirubin AST ALT Alkaline Phosphatase Total Creatine Kinase Troponin I Total Protein Albumin Globulin Albumin/Globulin Ratio TSH Urine Color Yellow Urine Appearance Clear Urine pH 7.5 Ur Specific [place] 1.010 Urine Protein 2+ H Urine Glucose (UA) Negative Urine Ketones Negative Urine Occult Blood Trace-intact Urine Nitrate Negative Urine Bilirubin Negative Urine Urobilinogen 0.2 Ur Leukocyte Esterase Trace H Urine RBC 5-10/hpf H Urine WBC 0-1/hpf Ur Squamous Epith Cells None seen Ur Transition Epith Cell 0-1/hpf Ur Renal Epithelial Cell 0-1/hpf Urine Bacteria Occasional (0-1) Ur Culture Indicated? Cult not indicated U Opiates 300ng/mL cut Ur Oxycodone Screen Urine Methadone Screen Ur Barbiturates Screen U Tricyclic Antidepress Ur Phencyclidine Scrn Ur Amphetamines Screen U Methamphetamines Scrn Ur MDMA Scrn (Ecstasy) U Benzodiazepines Scrn Urine Cocaine Screen U Marijuana (THC) Screen Ethyl Alcohol SARS-CoV-2 (PCR) Assessment & Plan Assessment & Plan narrative: 1. Hyponatremia with possible Tea and toast syndrome as well as polydipsia. POA 2. Hypertensive urgency, POA 3. DM 2, no medications. POA 4. Chronic epigastric pain, POA. 5. Transitory confusion, not present on admission. 6. Stage 4 chronic kidney disease. POA. Plan: -given normal mental status, will use saline at 100 mL an hour with close following of the sodium instead of hypertonic. -given the unclear nature of her transient confusion and possible speech issues, will cover her with aspirin empirically. -urine studies will be sent to further assess the etiology of hyponatremia. -Protonix daily will be given for epigastric pain. She may benefit from an outpatient evaluation gastroenterology for consideration of endoscopy. -will check blood sugars q.6 hours to evaluate her degree of control. -we will start amlodipine 5 mg daily, 1st dose now and follow blood pressure. -we will monitor her renal function given her history of stage IV chronic She is full resuscitation. Time Spent With Patient Time with patient: 30 to 49 minutes with 50% spent counseling/coordinating care Quality VTE Deep Vein Thrombosis/Pulmonary Embolism Present on Admission: No MIPS - Admit I confirm the patient?s Advance Care Plan is present, Code status is documented, Surrogate decision maker is in patient?s record [If Yes, STOP here]: Yes
[2023-02-24 18:01] LABS: Sodium Urine Random 29 mmol/L (30-90)
[2023-02-24] MEDS: ASPIRIN EC 81 MG TABLET PO (18:22)
[2023-02-24] MEDS: SODIUM CHLORIDE 0.9% 1,000 ML 100 ML IV (18:22)
[2023-02-24] MEDS: AMLODIPINE 5 MG TABLET PO (18:22)
--- NOTE | 2023-02-24 18:38 | PC.NURSE ---
Admit Note Pt. arrived to room 226 from ED approx. 1735. Some delayed responses noted but alert and oriented. BG 135. Tele SR, HTN noted and reported to Renzo SOLIS ordered and administered. NS @ 100 started per order, IV site x2 patent. Oriented to room and call light in addition to safety, bed alarm applied due to forgetfulness. Plan of care ongoing.
[2023-02-24 18:42] LABS: BUN Creatinine Ratio 15.1 (6-22); Blood Urea Nitrogen 21 mg/dL (7-17); Carbon Dioxide 28 mmol/L (22-32); Chloride 81 mmol/L (98-107); Estimated Glomerular Filt Rate 41 mL/min (>60); Glucose 157 mg/dL (80-110); HEMOLYSIS < 15 (0-50); Potassium 3.3 mmol/L (3.4-5.1)
[2023-02-24 18:44] LABS: Sodium 118 mmol/L (137-145)
[2023-02-24] MEDS: ACETAMINOPHEN 325 MG TABLET 650 MG PO (23:00)
[2023-02-24 23:34] LABS: MRSA (Nasal) PCR DETECTED (Not Detect)
[2023-02-24 23:53] LABS: BUN Creatinine Ratio 16.7 (6-22); Blood Urea Nitrogen 25 mg/dL (7-17); Calcium 8.3 mg/dL (8.4-10.2); Carbon Dioxide 29 mmol/L (22-32); Chloride 84 mmol/L (98-107); Estimated Glomerular Filt Rate 37 mL/min (>60); Glucose 146 mg/dL (80-110); HEMOLYSIS < 15 (0-50); Potassium 3.3 mmol/L (3.4-5.1)
[2023-02-24 23:55] LABS: Sodium 118 mmol/L (137-145)
[2023-02-25] VITALS (56 sets, daily range): BP systolic 131–224; BP diastolic 62–98; PULSE 64–95; RESP 9–42; TEMP 36.2–36.5; O2SAT 76–100
[2023-02-25 05:04] LABS: Add Manual Diff / Slide Review NO; Basophils Absolute Auto 100 /uL (0-100); Basophils Percent Auto 1.2 % (0-2); Eosinophils Absolute Auto 100 /uL (0-450); Eosinophils Percent Auto 1.4 % (2-4); Hematocrit 27.4 % (36-46); Hemoglobin 9.8 g/dL (12.0-16.0); Lymphocytes Absolute Auto 1500 /uL (1100-4500); Lymphocytes Percent Auto 19.8 % (25-40); Mean Corpuscular HGB Conc 35.7 % (30-36); Mean Corpuscular Hemoglobin 32.2 PG (26-34); Mean Corpuscular Volume 90.3 fL (80-100); Monocytes Absolute Auto 600 /uL (0-900); Monocytes Percent Auto 8.5 % (3-14); Neutrophils Absolute Auto 5300 /uL (1500-7000); Neutrophils Percent Auto 69.1 % (50-75); Platelet Count 373 X10^3/uL (150-400); Red Blood Cell Count 3.04 X10^6/uL (4.0-5.2); Red Cell Distribution Width 13.4 % (11.6-14.8); White Blood Cell Count 7.6 X10^3/uL (4.5-11.0)
[2023-02-25] MEDS: PANTOPRAZOLE DR 40 MG TABLET PO (06:59)
[2023-02-25] MEDS: SODIUM CHLORIDE 0.9% 1,000 ML 100 ML IV (07:58)
--- NOTE | 2023-02-25 08:25 | PM.CN.EICU ---
History of Present Illness Consult details IF CAMERA ACTIVATED, patient seen via real-time interactive audiovisual communication: Camera activated Date Patient Seen: 02/25/23 Chief complaint: Confusion and right facial droop Reason for consult: hyponatremia Consent obtained for tele-territory account representative care: Yes Patient Location: ICU Provider location (State): [place] Other participants/roles: Cased discussed with Dr. Bueno, bedside RN Narrative: 72 yo F with h/o DM2, now diet controlled, esophagitis/dysphagia, 20 lbs weight loss over last year secondary to abdominal discomfort, CKD with proteinuria, HTN. Seen by wellness nurse in december of this year who recommended starting losartan 25 mg daily, continue to avoid NSAID. Patient p/w confusion and weakness. Evaulated by stroke neurology- Head CT neg, no TPA given, as on labs found to have Na of 115 (last 135 in december) Chloride also low at 75. Per chart review, mental status improved in ED and she stated poor po intake overall and drinking water due to heat- She was started on NS at 100 ml/hr for re hydration. Na had come up from 115 to 118 in 12 hours. This morning was 125 at 18 hour judi. NIH scale 0 this am FOR[facility]LY [facility] Medical History Acquired hypothyroidism Ankle fracture, left Carpal tunnel syndrome (~1997) Chronic right-sided low back pain with right-sided sciatica (12/08/16) CKD stage G4/A3, GFR 15-29 and albumin creatinine ratio >300 mg/g Diabetes mellitus type 2 in nonobese Dysphagia Essential hypertension GERD with esophagitis Hyperlipidemia associated with type 2 diabetes mellitus Wrist fracture, right (11/2016) Surgical History History of carpal tunnel repair (1997) Family History Mother Age: 91 Diabetes mellitus Father Dementia Social History household members: none lives independently: Yes Smoking Status: Never smoker alcohol intake: current Current Medications Current Medications Medications: Home Medications blood-glucose meter (Blood Glucose Monitoring kit) #1 ea 06/04/21 [Rx Confirmed 02/24/23] lancets #100 ea 06/04/21 [Rx Confirmed 02/24/23] blood sugar diagnostic (Blood Glucose Test strips) #100 ea 11/27/22 [Rx Confirmed 02/24/23] acetaminophen 325 mg tablet 975 mg PO TID PRN Pain, Moderate 02/24/23 [History Confirmed 02/24/23] Visit Medications (administered) Generic Name Dose Route Start Last Admin Trade Name Freq PRN Reason Stop Dose Admin Acetaminophen 650 mg 02/24/23 17:45 02/25/23 05:21 Acetaminophen 325 Mg Tablet PO Not Given Q6H QUINTIN Amlodipine Besylate 5 mg 02/24/23 17:40 02/24/23 18:22 Amlodipine 5 Mg Tablet PO 5 mg DAILY QUINTIN Administration Aspirin 81 mg 02/24/23 17:40 02/24/23 18:22 Aspirin Ec 81 Mg Tablet PO 81 mg DAILY QUINTIN Administration Sodium Chloride 1,000 mls @ 100 mls/hr 02/24/23 17:45 02/25/23 07:58 Normal Saline 0.9% IV 100 mls/hr CONT QUINTIN Administration Pantoprazole Sodium 40 mg 02/25/23 07:00 02/25/23 06:[address] 40 Mg Tablet PO 40 mg 0700 QUINTIN Administration Review of Systems Review of Systems Narrative: as per HPI Exam Vital Signs (past 8 hours): - 02/25/23 01:00 02/25/23 01:00 02/25/23 00:30 Temperature Pulse Rate 73 75 Respiratory Rate 15 22 Blood Pressure 143/70 H Pulse Oximetry 95 91 Oxygen Flow Rate 02/25/23 01:30 02/25/23 02:00 02/25/23 02:00 Temperature 97.1 F L Pulse Rate 72 80 Respiratory Rate 16 11 L Blood Pressure 161/88 H Pulse Oximetry 96 98 Oxygen Flow Rate 02/25/23 03:00 02/25/23 02:30 02/25/23 03:00 Temperature Pulse Rate 64 68 Respiratory Rate 17 17 Blood Pressure 135/73 135/73 Pulse Oximetry 94 97 Oxygen Flow Rate 0 02/25/23 03:00 02/25/23 03:30 02/25/23 04:00 Temperature Pulse Rate 65 65 Respiratory Rate 16 13 Blood Pressure 156/77 H Pulse Oximetry 96 99 Oxygen Flow Rate 02/25/23 04:00 02/25/23 04:00 02/25/23 05:00 Temperature 97.5 F L Pulse Rate 68 70 Respiratory Rate 15 Blood Pressure 146/69 H Pulse Oximetry 98 93 Oxygen Flow Rate 02/25/23 04:30 02/25/23 05:00 02/25/23 05:00 Temperature Pulse Rate 73 73 Respiratory Rate 13 13 Blood Pressure 146/69 H Pulse Oximetry 98 98 Oxygen Flow Rate 02/25/23 05:30 02/25/23 06:00 02/25/23 06:00 Temperature Pulse Rate 72 69 Respiratory Rate 15 16 Blood Pressure 159/72 H Pulse Oximetry 98 98 Oxygen Flow Rate 02/25/23 06:30 02/25/23 07:00 02/25/23 07:00 Temperature Pulse Rate 72 80 Respiratory Rate 15 42 H Blood Pressure 131/93 H Pulse Oximetry 97 97 Oxygen Flow Rate 02/25/23 07:30 Temperature Pulse Rate 65 Respiratory Rate 16 Blood Pressure Pulse Oximetry 98 Oxygen Flow Rate Oxygen Delivery Method Room Air Oxygen Flow Rate 0 Const Other: thin woman, in no distress, on room air Resp Other: normal inspiratory effot Cardio Other: NSR on tele Psych Other: alert and oriented to person, place, situation Objective Imaging Chest x-ray: My impression: NA- not done CT scan - head: Radiologist's impression: no intracranial abnormality Labs 02/25/23 04:13 02/25/23 08:14 Labs: Laboratory Results - last 24 hr 02/24/23 02/24/23 02/24/23 14:01 14:01 14:01 WBC 10.3 RBC 3.42 L Hgb 11.0 L Hct 30.8 L MCV 90.0 MCH 32.2 MCHC 35.8 RDW 13.0 Plt Count 426 H Neut % (Auto) 62.6 Lymph % (Auto) 25.7 [place] % (Auto) 9.9 Eos % (Auto) 0.4 L Baso % (Auto) 1.4 Neut # (Auto) 6500 Lymph # (Auto) 2700 [place] # (Auto) 1000 H Eos # (Auto) 0 Baso # (Auto) 100 PT 10.9 INR 1.0 APTT 27 Sodium 115 L* Potassium 3.6 Chloride 76 L* Carbon Dioxide 30 BUN 22 H Creatinine 1.46 H Estimated GFR 38 L BUN/Creatinine Ratio 15.1 Glucose 158 H Calcium 9.5 Total Bilirubin 0.6 AST 46 H ALT 25 Alkaline Phosphatase 93 Total Creatine Kinase 414 H Troponin I 0.016 Total Protein 7.4 Albumin 4.2 Globulin 3.2 Albumin/Globulin Ratio 1.3 TSH Urine Color Urine Appearance Urine pH Ur Specific [place] Urine Protein Urine Glucose (UA) Urine Ketones Urine Occult Blood Urine Nitrate Urine Bilirubin Urine Urobilinogen Ur Leukocyte Esterase Urine RBC Urine WBC Ur Squamous Epith Cells Ur Transition Epith Cell Ur Renal Epithelial Cell Urine Bacteria Ur Culture Indicated? Ur Random Sodium Nasal Screen MRSA (PCR) U Opiates 300ng/mL cut Ur Oxycodone Screen Urine Methadone Screen Ur Barbiturates Screen U Tricyclic Antidepress Ur Phencyclidine Scrn Ur Amphetamines Screen U Methamphetamines Scrn Ur MDMA Scrn (Ecstasy) U Benzodiazepines Scrn Urine Cocaine Screen U Marijuana (THC) Screen Ethyl Alcohol < 10 SARS-CoV-2 (PCR) 02/24/23 02/24/23 02/24/23 14:22 14:28 14:50 WBC RBC Hgb Hct MCV MCH MCHC RDW Plt Count Neut % (Auto) Lymph % (Auto) [place] % (Auto) Eos % (Auto) Baso % (Auto) Neut # (Auto) Lymph # (Auto) [place] # (Auto) Eos # (Auto) Baso # (Auto) PT INR APTT Sodium Potassium Chloride Carbon Dioxide BUN Creatinine Estimated GFR BUN/Creatinine Ratio Glucose Calcium Total Bilirubin AST ALT Alkaline Phosphatase Total Creatine Kinase Troponin I Total Protein Albumin Globulin Albumin/Globulin Ratio TSH 3.99 Urine Color Urine Appearance Urine pH Ur Specific [place] Urine Protein Urine Glucose (UA) Urine Ketones Urine Occult Blood Urine Nitrate Urine Bilirubin Urine Urobilinogen Ur Leukocyte Esterase Urine RBC Urine WBC Ur Squamous Epith Cells Ur Transition Epith Cell Ur Renal Epithelial Cell Urine Bacteria Ur Culture Indicated? Ur Random Sodium Nasal Screen MRSA (PCR) U Opiates 300ng/mL cut Negative Ur Oxycodone Screen Negative Urine Methadone Screen Negative Ur Barbiturates Screen Negative U Tricyclic Antidepress Negative Ur Phencyclidine Scrn Negative Ur Amphetamines Screen Negative U Methamphetamines Scrn Negative Ur MDMA Scrn (Ecstasy) Negative U Benzodiazepines Scrn Negative Urine Cocaine Screen Negative U Marijuana (THC) Screen Negative Ethyl Alcohol SARS-CoV-2 (PCR) Negative 02/24/23 02/24/23 02/24/23 14:50 14:50 16:50 WBC RBC Hgb Hct MCV MCH MCHC RDW Plt Count Neut % (Auto) Lymph % (Auto) [place] % (Auto) Eos % (Auto) Baso % (Auto) Neut # (Auto) Lymph # (Auto) [place] # (Auto) Eos # (Auto) Baso # (Auto) PT INR APTT Sodium Potassium Chloride Carbon Dioxide BUN Creatinine Estimated GFR BUN/Creatinine Ratio Glucose Calcium Total Bilirubin AST ALT Alkaline Phosphatase Total Creatine Kinase Troponin I Total Protein Albumin Globulin Albumin/Globulin Ratio TSH Urine Color Yellow Urine Appearance Clear Urine pH 7.5 Ur Specific [place] 1.010 Urine Protein 2+ H Urine Glucose (UA) Negative Urine Ketones Negative Urine Occult Blood Trace-intact Urine Nitrate Negative Urine Bilirubin Negative Urine Urobilinogen 0.2 Ur Leukocyte Esterase Trace H Urine RBC 5-10/hpf H Urine WBC 0-1/hpf Ur Squamous Epith Cells None seen Ur Transition Epith Cell 0-1/hpf Ur Renal Epithelial Cell 0-1/hpf Urine Bacteria Occasional (0-1) Ur Culture Indicated? Cult not indicated Ur Random Sodium 29 L Nasal Screen MRSA (PCR) Detected H U Opiates 300ng/mL cut Ur Oxycodone Screen Urine Methadone Screen Ur Barbiturates Screen U Tricyclic Antidepress Ur Phencyclidine Scrn Ur Amphetamines Screen U Methamphetamines Scrn Ur MDMA Scrn (Ecstasy) U Benzodiazepines Scrn Urine Cocaine Screen U Marijuana (THC) Screen Ethyl Alcohol SARS-CoV-2 (PCR) 02/24/23 02/24/23 02/25/23 18:20 23:35 04:13 WBC 7.6 RBC 3.04 L Hgb 9.8 L Hct 27.4 L MCV 90.3 MCH 32.2 MCHC 35.7 RDW 13.4 Plt Count 373 Neut % (Auto) 69.1 Lymph % (Auto) 19.8 L [place] % (Auto) 8.5 Eos % (Auto) 1.4 L Baso % (Auto) 1.2 Neut # (Auto) 5300 Lymph # (Auto) 1500 [place] # (Auto) 600 Eos # (Auto) 100 Baso # (Auto) 100 PT INR APTT Sodium 118 L* 118 L* Potassium 3.3 L 3.3 L Chloride 81 L 84 L Carbon Dioxide 28 29 BUN 21 H 25 H Creatinine 1.39 H 1.50 H Estimated GFR 41 L 37 L BUN/Creatinine Ratio 15.1 16.7 Glucose 157 H 146 H Calcium 9.0 8.3 L Total Bilirubin AST ALT Alkaline Phosphatase Total Creatine Kinase Troponin I Total Protein Albumin Globulin Albumin/Globulin Ratio TSH Urine Color Urine Appearance Urine pH Ur Specific [place] Urine Protein Urine Glucose (UA) Urine Ketones Urine Occult Blood Urine Nitrate Urine Bilirubin Urine Urobilinogen Ur Leukocyte Esterase Urine RBC Urine WBC Ur Squamous Epith Cells Ur Transition Epith Cell Ur Renal Epithelial Cell Urine Bacteria Ur Culture Indicated? Ur Random Sodium Nasal Screen MRSA (PCR) U Opiates 300ng/mL cut Ur Oxycodone Screen Urine Methadone Screen Ur Barbiturates Screen U Tricyclic Antidepress Ur Phencyclidine Scrn Ur Amphetamines Screen U Methamphetamines Scrn Ur MDMA Scrn (Ecstasy) U Benzodiazepines Scrn Urine Cocaine Screen U Marijuana (THC) Screen Ethyl Alcohol SARS-CoV-2 (PCR) Assessment & Plan Assessment and plan (1) Acute hyponatremia: Status: Acute (2) Essential hypertension: Status: Chronic (3) Diabetes mellitus type 2 in nonobese: Status: Chronic (4) CKD stage G4/A3, GFR 15-29 and albumin creatinine ratio >300 mg/g: Status: Chronic (5) Hyperlipidemia associated with type 2 diabetes mellitus: Status: Chronic (6) Moderately increased albuminuria: Status: Acute Assessment & Plan narrative: Acute hyponatremia, likely secondary to poor PO intake (due to esophageal issues GERD/dysphagia) in setting of increased free water intake (due to heat). Suspect hypovolemic hyponatremia. Both Na and Cl improved with saline hydration - goal Na would be 121-123 by 2 pm today. However this am Na 125 at 18 hours. NS d/c and Free water at 50ml/hr started. Will repeat Na in 4 hours. Check K, Mag, Phos and replete as needed. Should have outpatient GI referral given ongoing issues with Poor po intake and weight loss started on PPI continue to avoid NSAIDS Continue to see OP wellness nurse Per notes Losartan 25 mg daily was recommended in December unclear if was started or not. Would hold at this time, as losartan has potential to cause hyponatremia Would continue amlodipine , increase to 10 mg Daily as SBP still elevated this am Labetolol PRN Monitor BG, goal <180 Time Spent With Patient Time with patient: 50 to 69 minutes with 50% spent counseling/coordinating care (50 minutes, New patient critical care consult, critical hyponatremia. )
[2023-02-25 08:38] LABS: BUN Creatinine Ratio 13.2 (6-22); Blood Urea Nitrogen 18 mg/dL (7-17); Calcium 8.2 mg/dL (8.4-10.2); Carbon Dioxide 28 mmol/L (22-32); Chloride 91 mmol/L (98-107); Estimated Glomerular Filt Rate 42 mL/min (>60); Glucose 131 mg/dL (80-110); HEMOLYSIS < 15 (0-50); Potassium 3.3 mmol/L (3.4-5.1); Sodium 125 mmol/L (137-145)
[2023-02-25] MEDS: ASPIRIN EC 81 MG TABLET PO (08:52)
[2023-02-25] MEDS: POTASSIUM CHLORIDE 20 MEQ TAB 40 MEQ PO (08:52)
[2023-02-25] MEDS: AMLODIPINE 5 MG TABLET PO ×2 (08:52→09:47)
[2023-02-25 09:07] LABS: Magnesium 1.9 mg/dL (1.6-2.3)
[2023-02-25 09:07] LABS: Phosphorous 3.6 mg/dL (2.8-4.1)
[2023-02-25] MEDS: DEXTROSE 5% WATER 500 ML 50 ML IV ×2 (09:26→21:09)
[2023-02-25 10:59] LABS: Sodium 123 mmol/L (137-145)
[2023-02-25 14:27] LABS: BUN Creatinine Ratio 12.5 (6-22); Blood Urea Nitrogen 17 mg/dL (7-17); Calcium 8.4 mg/dL (8.4-10.2); Carbon Dioxide 27 mmol/L (22-32); Chloride 91 mmol/L (98-107); Estimated Glomerular Filt Rate 42 mL/min (>60); Glucose 232 mg/dL (80-110); HEMOLYSIS < 15 (0-50); Potassium 4.1 mmol/L (3.4-5.1); Sodium 123 mmol/L (137-145)
--- NOTE | 2023-02-25 15:01 | P.PN_ITS ---
Subjective Subjective Date Patient Seen: 02/25/23 Interval history: 72 yo F with CKD, diet controlled DM adm with altered MS due to severe hyponateremia with dmit Na of 117. Pt's confusion has cleared up, tele-ICU managing fluids. Last Na 145 after 18H. Currently on D5W Exam Vital Signs (past 8 hours): - 02/25/23 07:30 02/25/23 08:00 02/25/23 08:00 Temperature Pulse Rate 65 70 Respiratory Rate 16 15 Blood Pressure 197/91 H Pulse Oximetry 98 99 Oxygen Flow Rate 02/25/23 08:30 02/25/23 09:00 02/25/23 09:00 Temperature Pulse Rate 72 80 Respiratory Rate 22 20 Blood Pressure 224/98 H Pulse Oximetry 98 99 Oxygen Flow Rate 02/25/23 10:00 02/25/23 09:17 02/25/23 09:17 Temperature 97.7 F Pulse Rate 81 78 Respiratory Rate 16 15 Blood Pressure 198/88 H Pulse Oximetry 95 98 Oxygen Flow Rate 0 02/25/23 09:30 02/25/23 10:00 02/25/23 10:01 Temperature Pulse Rate 80 87 Respiratory Rate 22 23 Blood Pressure 183/79 H Pulse Oximetry 96 96 Oxygen Flow Rate 02/25/23 10:01 02/25/23 10:25 02/25/23 10:25 Temperature Pulse Rate 90 79 Respiratory Rate 28 H 23 Blood Pressure 150/70 H Pulse Oximetry 100 94 Oxygen Flow Rate 02/25/23 10:30 02/25/23 11:00 02/25/23 11:00 Temperature Pulse Rate 73 69 Respiratory Rate 29 H 21 Blood Pressure 142/65 H Pulse Oximetry 99 98 Oxygen Flow Rate 02/25/23 11:30 02/25/23 12:00 02/25/23 12:00 Temperature Pulse Rate 77 90 Respiratory Rate 21 29 H Blood Pressure 182/87 H Pulse Oximetry 99 98 Oxygen Flow Rate 02/25/23 12:30 02/25/23 12:31 02/25/23 12:31 Temperature Pulse Rate 68 70 Respiratory Rate 37 H 32 H Blood Pressure 155/74 H Pulse Oximetry 98 97 Oxygen Flow Rate 02/25/23 13:00 02/25/23 13:01 02/25/23 13:01 Temperature Pulse Rate 80 81 Respiratory Rate 30 H 31 H Blood Pressure 206/87 H Pulse Oximetry 98 84 L Oxygen Flow Rate 02/25/23 13:20 02/25/23 13:20 02/25/23 13:30 Temperature Pulse Rate 85 95 H Respiratory Rate 35 H 24 Blood Pressure 148/67 H Pulse Oximetry Oxygen Flow Rate 02/25/23 14:00 02/25/23 14:00 Temperature Pulse Rate 89 Respiratory Rate 30 H Blood Pressure 136/62 Pulse Oximetry 100 Oxygen Flow Rate Oxygen Delivery Method Room Air Oxygen Flow Rate 0 Narrative Exam Narrative: Gen: alert, NAD Lungs: clear CV: RRR Ext: no edema Neuro:alert, fully oriented, nl speech, no focal weakness Objective Labs 02/25/23 04:13 02/25/23 13:40 Labs: Laboratory Results - last 24 hr 02/24/23 02/24/23 02/24/23 14:28 14:50 14:50 WBC RBC Hgb Hct MCV MCH MCHC RDW Plt Count Neut % (Auto) Lymph % (Auto) [place] % (Auto) Eos % (Auto) Baso % (Auto) Neut # (Auto) Lymph # (Auto) [place] # (Auto) Eos # (Auto) Baso # (Auto) Sodium Potassium Chloride Carbon Dioxide BUN Creatinine Estimated GFR BUN/Creatinine Ratio Glucose Calcium Phosphorus Magnesium TSH 3.99 Urine Color Yellow Urine Appearance Clear Urine pH 7.5 Ur Specific [place] 1.010 Urine Protein 2+ H Urine Glucose (UA) Negative Urine Ketones Negative Urine Occult Blood Trace-intact Urine Nitrate Negative Urine Bilirubin Negative Urine Urobilinogen 0.2 Ur Leukocyte Esterase Trace H Urine RBC 5-10/hpf H Urine WBC 0-1/hpf Ur Squamous Epith Cells None seen Ur Transition Epith Cell 0-1/hpf Ur Renal Epithelial Cell 0-1/hpf Urine Bacteria Occasional (0-1) Ur Culture Indicated? Cult not indicated Ur Random Sodium Nasal Screen MRSA (PCR) U Opiates 300ng/mL cut Negative Ur Oxycodone Screen Negative Urine Methadone Screen Negative Ur Barbiturates Screen Negative U Tricyclic Antidepress Negative Ur Phencyclidine Scrn Negative Ur Amphetamines Screen Negative U Methamphetamines Scrn Negative Ur MDMA Scrn (Ecstasy) Negative U Benzodiazepines Scrn Negative Urine Cocaine Screen Negative U Marijuana (THC) Screen Negative 02/24/23 02/24/23 02/24/23 14:50 16:50 18:20 WBC RBC Hgb Hct MCV MCH MCHC RDW Plt Count Neut % (Auto) Lymph % (Auto) [place] % (Auto) Eos % (Auto) Baso % (Auto) Neut # (Auto) Lymph # (Auto) [place] # (Auto) Eos # (Auto) Baso # (Auto) Sodium 118 L* Potassium 3.3 L Chloride 81 L Carbon Dioxide 28 BUN 21 H Creatinine 1.39 H Estimated GFR 41 L BUN/Creatinine Ratio 15.1 Glucose 157 H Calcium 9.0 Phosphorus Magnesium TSH Urine Color Urine Appearance Urine pH Ur Specific [place] Urine Protein Urine Glucose (UA) Urine Ketones Urine Occult Blood Urine Nitrate Urine Bilirubin Urine Urobilinogen Ur Leukocyte Esterase Urine RBC Urine WBC Ur Squamous Epith Cells Ur Transition Epith Cell Ur Renal Epithelial Cell Urine Bacteria Ur Culture Indicated? Ur Random Sodium 29 L Nasal Screen MRSA (PCR) Detected H U Opiates 300ng/mL cut Ur Oxycodone Screen Urine Methadone Screen Ur Barbiturates Screen U Tricyclic Antidepress Ur Phencyclidine Scrn Ur Amphetamines Screen U Methamphetamines Scrn Ur MDMA Scrn (Ecstasy) U Benzodiazepines Scrn Urine Cocaine Screen U Marijuana (THC) Screen 02/24/23 02/25/23 02/25/23 23:35 04:13 08:14 WBC 7.6 RBC 3.04 L Hgb 9.8 L Hct 27.4 L MCV 90.3 MCH 32.2 MCHC 35.7 RDW 13.4 Plt Count 373 Neut % (Auto) 69.1 Lymph % (Auto) 19.8 L [place] % (Auto) 8.5 Eos % (Auto) 1.4 L Baso % (Auto) 1.2 Neut # (Auto) 5300 Lymph # (Auto) 1500 [place] # (Auto) 600 Eos # (Auto) 100 Baso # (Auto) 100 Sodium 118 L* 125 L Potassium 3.3 L 3.3 L Chloride 84 L 91 L Carbon Dioxide 29 28 BUN 25 H 18 H Creatinine 1.50 H 1.36 H Estimated GFR 37 L 42 L BUN/Creatinine Ratio 16.7 13.2 Glucose 146 H 131 H Calcium 8.3 L 8.2 L Phosphorus Magnesium TSH Urine Color Urine Appearance Urine pH Ur Specific [place] Urine Protein Urine Glucose (UA) Urine Ketones Urine Occult Blood Urine Nitrate Urine Bilirubin Urine Urobilinogen Ur Leukocyte Esterase Urine RBC Urine WBC Ur Squamous Epith Cells Ur Transition Epith Cell Ur Renal Epithelial Cell Urine Bacteria Ur Culture Indicated? Ur Random Sodium Nasal Screen MRSA (PCR) U Opiates 300ng/mL cut Ur Oxycodone Screen Urine Methadone Screen Ur Barbiturates Screen U Tricyclic Antidepress Ur Phencyclidine Scrn Ur Amphetamines Screen U Methamphetamines Scrn Ur MDMA Scrn (Ecstasy) U Benzodiazepines Scrn Urine Cocaine Screen U Marijuana (THC) Screen 02/25/23 02/25/23 02/25/23 08:14 10:32 13:40 WBC RBC Hgb Hct MCV MCH MCHC RDW Plt Count Neut % (Auto) Lymph % (Auto) [place] % (Auto) Eos % (Auto) Baso % (Auto) Neut # (Auto) Lymph # (Auto) [place] # (Auto) Eos # (Auto) Baso # (Auto) Sodium 123 L 123 L Potassium 4.1 Chloride 91 L Carbon Dioxide 27 BUN 17 Creatinine 1.36 H Estimated GFR 42 L BUN/Creatinine Ratio 12.5 Glucose 232 H D Calcium 8.4 Phosphorus Magnesium 1.9 TSH Urine Color Urine Appearance Urine pH Ur Specific [place] Urine Protein Urine Glucose (UA) Urine Ketones Urine Occult Blood Urine Nitrate Urine Bilirubin Urine Urobilinogen Ur Leukocyte Esterase Urine RBC Urine WBC Ur Squamous Epith Cells Ur Transition Epith Cell Ur Renal Epithelial Cell Urine Bacteria Ur Culture Indicated? Ur Random Sodium Nasal Screen MRSA (PCR) U Opiates 300ng/mL cut Ur Oxycodone Screen Urine Methadone Screen Ur Barbiturates Screen U Tricyclic Antidepress Ur Phencyclidine Scrn Ur Amphetamines Screen U Methamphetamines Scrn Ur MDMA Scrn (Ecstasy) U Benzodiazepines Scrn Urine Cocaine Screen U Marijuana (THC) Screen 02/25/23 Unknown WBC RBC Hgb Hct MCV MCH MCHC RDW Plt Count Neut % (Auto) Lymph % (Auto) [place] % (Auto) Eos % (Auto) Baso % (Auto) Neut # (Auto) Lymph # (Auto) [place] # (Auto) Eos # (Auto) Baso # (Auto) Sodium Potassium Chloride Carbon Dioxide BUN Creatinine Estimated GFR BUN/Creatinine Ratio Glucose Calcium Phosphorus 3.6 Magnesium TSH Urine Color Urine Appearance Urine pH Ur Specific [place] Urine Protein Urine Glucose (UA) Urine Ketones Urine Occult Blood Urine Nitrate Urine Bilirubin Urine Urobilinogen Ur Leukocyte Esterase Urine RBC Urine WBC Ur Squamous Epith Cells Ur Transition Epith Cell Ur Renal Epithelial Cell Urine Bacteria Ur Culture Indicated? Ur Random Sodium Nasal Screen MRSA (PCR) U Opiates 300ng/mL cut Ur Oxycodone Screen Urine Methadone Screen Ur Barbiturates Screen U Tricyclic Antidepress Ur Phencyclidine Scrn Ur Amphetamines Screen U Methamphetamines Scrn Ur MDMA Scrn (Ecstasy) U Benzodiazepines Scrn Urine Cocaine Screen U Marijuana (THC) Screen [facility] Medical History Acquired hypothyroidism Ankle fracture, left Carpal tunnel syndrome (~1997) Chronic right-sided low back pain with right-sided sciatica (12/08/16) CKD stage G4/A3, GFR 15-29 and albumin creatinine ratio >300 mg/g Diabetes mellitus type 2 in nonobese Dysphagia Essential hypertension GERD with esophagitis Hyperlipidemia associated with type 2 diabetes mellitus Wrist fracture, right (11/2016) Surgical History History of carpal tunnel repair (1997) Family History Mother Age: 91 Diabetes mellitus Father Dementia Social History household members: none lives independently: Yes Smoking Status: Never smoker alcohol intake: current Assessment & Plan Assessment & Plan narrative: 1. Acute hyponatremia -likely hypovolemic due to dec po intake (due to espphageal issues GERD/dysphagia) in setting of icreased free water -checking Na, CL, K q4 h, adjust fluids as needed to avoid over rapid correction -TSH nl 2. Dysphagia, GERD, weight loss -started on PPI -should have outpt GI eval (can be referred by PCP) 3. 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 HTN, severe -started on amlodipine, inc to 10 mg qd -labetalol prn 5. Diabetes -noted inc CBG on D5, insulin s/s -check A1c Quality VTE Deep Vein Thrombosis/Pulmonary Embolism Present on Admission: No
--- NOTE | 2023-02-25 15:57 | CM.DANOTE ---
DCP Assessment Note: Patient is a 72yo female here following some confusion. Found to have low sodium. PCP Abdias Mcdonough Payer Medicare and [facility] QI-1 program DATA ENTRY COORDINATOR reviewed EMR. Per provider, patient may be here for a few days to balance sodium. From nursing staff, likely no needs. DATA ENTRY COORDINATOR entered room and introduced self and role. Patient was resting in bed and appeared A/Ox4. Patient lives alone in [place]. Patient's mother lives at [facility], son is seerna krueger that lives in area and can support her if needed (Barron [phone]). Patient's two other daughters live out of state. Patient is active and independent with ADLs. Patient drives. Patient does not use any DME. Patient is eager to d/c home. Patient reports no needs at this time. Plan: patient will d/c home when medically stable. No needs identified at this time. transport with family/friend in POV. CM team will continue to follow as needed. KRYS Gu[place]pa Discharge Planning/Care Management CM Discharge Assessment Start: 02/25/23 15:55 Freq: Status: Active Protocol: Document 02/25/23 15:55 (Rec: 02/25/23 15:56 [id number]) Discharge Planning Assessment Assigned Community Organization Director KRYS [place] DPOA/Assigned Designee Name Barron Kerr (son) Contact Information [phone] Advance Directives? No History Provided By Patient,Medical Record Prior Living Arrangements House Household Members none Type of transporation used prior to Drives own vehicle admit Independent with ADL's Yes Is patient alert and oriented? Yes Barriers to Discharge Yes Comment waiting on sodium levels to be WNL Discharge Plan Home Transportation Arrangement friend or son Whiteboard Updated in Patient Room with Yes name and ext. # of Community Organization Director Review Status In Process Next Review Type Continued Stay Review
[2023-02-25] MEDS: INSULIN LISPRO 100 UNIT/ML 3ML VIAL SUBCUT (16:56)
[2023-02-25 20:25] LABS: BUN Creatinine Ratio 15.5 (6-22); Blood Urea Nitrogen 23 mg/dL (7-17); Calcium 8.1 mg/dL (8.4-10.2); Carbon Dioxide 24 mmol/L (22-32); Chloride 93 mmol/L (98-107); Estimated Glomerular Filt Rate 38 mL/min (>60); Glucose 142 mg/dL (80-110); HEMOLYSIS < 15 (0-50); Sodium 122 mmol/L (137-145)
--- NOTE | 2023-02-25 21:33 | PM.ICURNDS ---
- Date Patient Seen: 02/25/23 Time Patient Seen: 21:25 :: This patient was seen via real time interactive two-way audiovisual telecommunication. Note: 72 y.o. female w/ CVA (did not receive tPA; NIHSS was 0) admitted w/ hypovolemic hypoNa+. As beginning of shift, was on D5W @ 25 mL/hr due to overcorrection. Latest serum Na+ was 122; starting value was 115 just over 24H ago. INTERVENTIONS: 1) Stopped D5W 2) Started NS @ 50 ml/hr and ordered q4 Na+ Discussed w/ RN.
[2023-02-25] MEDS: SODIUM CHLORIDE 0.9% 1,000 ML 50 ML IV (21:45)
[2023-02-25] MEDS: ACETAMINOPHEN 325 MG TABLET 650 MG PO (23:55)
[2023-02-26] VITALS (32 sets, daily range): BP systolic 138–194; BP diastolic 70–94; PULSE 59–97; RESP 13–47; TEMP 36.4–36.6; O2SAT 87–100
[2023-02-26 01:08] LABS: Sodium 123 mmol/L (137-145)
[2023-02-26 05:11] LABS: Add Manual Diff / Slide Review NO; Basophils Absolute Auto 100 /uL (0-100); Basophils Percent Auto 0.7 % (0-2); Eosinophils Absolute Auto 200 /uL (0-450); Eosinophils Percent Auto 2.2 % (2-4); Hematocrit 30.2 % (36-46); Hemoglobin 10.6 g/dL (12.0-16.0); Lymphocytes Absolute Auto 2300 /uL (1100-4500); Lymphocytes Percent Auto 25.1 % (25-40); Mean Corpuscular Hemoglobin 31.8 PG (26-34); Mean Corpuscular Volume 90.8 fL (80-100); Monocytes Absolute Auto 700 /uL (0-900); Monocytes Percent Auto 7.7 % (3-14); Neutrophils Absolute Auto 5900 /uL (1500-7000); Neutrophils Percent Auto 64.3 % (50-75); Platelet Count 410 X10^3/uL (150-400); Red Blood Cell Count 3.33 X10^6/uL (4.0-5.2); Red Cell Distribution Width 13.1 % (11.6-14.8); White Blood Cell Count 9.2 X10^3/uL (4.5-11.0)
[2023-02-26 05:22] LABS: Sodium 127 mmol/L (137-145)
[2023-02-26 05:26] LABS: Magnesium 1.9 mg/dL (1.6-2.3)
[2023-02-26 05:30] LABS: Hemoglobin A1C% w Est Avg Glu 5.9 % (4.0-6.0)
[2023-02-26] MEDS: ACETAMINOPHEN 325 MG TABLET 650 MG PO (05:38)
[2023-02-26] MEDS: PANTOPRAZOLE DR 40 MG TABLET PO (06:34)
[2023-02-26] MEDS: AMLODIPINE 5 MG TABLET 10 MG PO (08:16)
[2023-02-26] MEDS: ASPIRIN EC 81 MG TABLET PO (08:16)
[2023-02-26] MEDS: INSULIN LISPRO 100 UNIT/ML 3ML VIAL SUBCUT ×2 (08:16→17:13)
[2023-02-26 08:26] LABS: Sodium 126 mmol/L (137-145)
[2023-02-26 12:43] LABS: Sodium 126 mmol/L (137-145)
[2023-02-26 15:45] LABS: Sodium Urine Random 79 mmol/L (30-90)
[2023-02-26] MEDS: SODIUM CHLORIDE 0.9% 1,000 ML 100 ML IV (15:49)
[2023-02-26 16:10] LABS: Osmolality Urine 162 mOsmol/kg (.)
--- NOTE | 2023-02-26 17:14 | PM.PN.1 ---
Subjective Subjective Interval history: Na stuck at 126 x2 checks. Patient wants to go home, but willing to stay one more day to get sodium up further. Exam Vital Signs (past 8 hours): - 02/26/23 10:00 02/26/23 14:57 Temperature 97.6 F 97.8 F Pulse Rate 70 71 Respiratory Rate 16 18 Blood Pressure 194/94 H 156/70 H Pulse Oximetry 99 97 Oxygen Flow Rate 0 0 Oxygen Delivery Method Room Air Oxygen Flow Rate 0 Narrative Exam Narrative: Gen: alert, NAD Lungs: clear CV: RRR Ext: no edema Neuro:alert, fully oriented, nl speech, no focal weakness Objective Labs 02/26/23 04:35 02/26/23 12:25 Labs: Laboratory Results - last 24 hr 02/24/23 02/25/23 02/26/23 14:50 20:00 00:35 WBC RBC Hgb Hct MCV MCH MCHC RDW Plt Count Neut % (Auto) Lymph % (Auto) [place] % (Auto) Eos % (Auto) Baso % (Auto) Neut # (Auto) Lymph # (Auto) [place] # (Auto) Eos # (Auto) Baso # (Auto) Sodium 122 L 123 L Potassium 4.0 Chloride 93 L Carbon Dioxide 24 BUN 23 H Creatinine 1.48 H Estimated GFR 38 L BUN/Creatinine Ratio 15.5 Glucose 142 H Hemoglobin A1c Calcium 8.1 L Magnesium Urine Osmolality 162 Ur Random Sodium 02/26/23 02/26/23 02/26/23 04:35 04:35 04:35 WBC 9.2 RBC 3.33 L Hgb 10.6 L Hct 30.2 L MCV 90.8 MCH 31.8 MCHC 35.0 RDW 13.1 Plt Count 410 H Neut % (Auto) 64.3 Lymph % (Auto) 25.1 [place] % (Auto) 7.7 Eos % (Auto) 2.2 Baso % (Auto) 0.7 Neut # (Auto) 5900 Lymph # (Auto) 2300 [place] # (Auto) 700 Eos # (Auto) 200 Baso # (Auto) 100 Sodium Potassium Chloride Carbon Dioxide BUN Creatinine Estimated GFR BUN/Creatinine Ratio Glucose Hemoglobin A1c 5.9 Calcium Magnesium 1.9 Urine Osmolality Ur Random Sodium 02/26/23 02/26/23 02/26/23 04:35 08:10 12:25 WBC RBC Hgb Hct MCV MCH MCHC RDW Plt Count Neut % (Auto) Lymph % (Auto) [place] % (Auto) Eos % (Auto) Baso % (Auto) Neut # (Auto) Lymph # (Auto) [place] # (Auto) Eos # (Auto) Baso # (Auto) Sodium 127 L 126 L 126 L Potassium Chloride Carbon Dioxide BUN Creatinine Estimated GFR BUN/Creatinine Ratio Glucose Hemoglobin A1c Calcium Magnesium Urine Osmolality Ur Random Sodium 02/26/23 14:31 WBC RBC Hgb Hct MCV MCH MCHC RDW Plt Count Neut % (Auto) Lymph % (Auto) [place] % (Auto) Eos % (Auto) Baso % (Auto) Neut # (Auto) Lymph # (Auto) [place] # (Auto) Eos # (Auto) Baso # (Auto) Sodium Potassium Chloride Carbon Dioxide BUN Creatinine Estimated GFR BUN/Creatinine Ratio Glucose Hemoglobin A1c Calcium Magnesium Urine Osmolality Ur Random Sodium 79 PFSH Medical History Acquired hypothyroidism Ankle fracture, left Carpal tunnel syndrome (~1997) Chronic right-sided low back pain with right-sided sciatica (12/08/16) CKD stage G4/A3, GFR 15-29 and albumin creatinine ratio >300 mg/g Diabetes mellitus type 2 in nonobese Dysphagia Essential hypertension GERD with esophagitis Hyperlipidemia associated with type 2 diabetes mellitus Wrist fracture, right (11/2016) Surgical History History of carpal tunnel repair (1997) Family History Mother Age: 91 Diabetes mellitus Father Dementia Social History household members: none lives independently: Yes Smoking Status: Never smoker alcohol intake: current Assessment & Plan Assessment & Plan narrative: 1. Acute hyponatremia -initially 115 -likely hypovolemic due to dec po intake (due to esophageal issues GERD/dysphagia) in setting of icreased free water -Na improved to 126 with IVF, repeat remains at 126 -if starts to downtrend may use low-dose hypertonic saline as patient is unwilling to stay more than 1 more day to correct sodium to 130's -TSH nl 2. Dysphagia, GERD, weight loss -started on PPI -should have outpt GI eval (can be referred by PCP) 3. 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 HTN, severe -started on amlodipine, inc to 10 mg qd -labetalol prn 5. Diabetes -noted inc CBG on D5, insulin s/s -A1c 5.9% Dispo: Home on 02/27 if sodium near 130. Quality VTE Deep Vein Thrombosis/Pulmonary Embolism Present on Admission: No
[2023-02-26 18:36] LABS: Sodium 128 mmol/L (137-145)
[2023-02-27] MEDS: SODIUM CHLORIDE 0.9% 1,000 ML 100 ML IV (02:28)
[2023-02-27 04:25] LABS: Add Manual Diff / Slide Review NO; Basophils Absolute Auto 100 /uL (0-100); Basophils Percent Auto 0.9 % (0-2); Eosinophils Absolute Auto 200 /uL (0-450); Eosinophils Percent Auto 2.9 % (2-4); Hematocrit 27.5 % (36-46); Hemoglobin 9.8 g/dL (12.0-16.0); Lymphocytes Absolute Auto 2600 /uL (1100-4500); Lymphocytes Percent Auto 30.1 % (25-40); Mean Corpuscular HGB Conc 35.6 % (30-36); Mean Corpuscular Hemoglobin 32.3 PG (26-34); Mean Corpuscular Volume 90.8 fL (80-100); Monocytes Absolute Auto 800 /uL (0-900); Monocytes Percent Auto 9.4 % (3-14); Neutrophils Absolute Auto 4800 /uL (1500-7000); Neutrophils Percent Auto 56.7 % (50-75); Platelet Count 383 X10^3/uL (150-400); Red Blood Cell Count 3.03 X10^6/uL (4.0-5.2); Red Cell Distribution Width 13.1 % (11.6-14.8); White Blood Cell Count 8.5 X10^3/uL (4.5-11.0)
[2023-02-27 04:27] LABS: Sodium 129 mmol/L (137-145)
[2023-02-27 04:31] LABS: Magnesium 1.7 mg/dL (1.6-2.3)
[2023-02-27 06:00] VITALS: BP 175/84; PULSE 80; RESP 20; TEMP 36.5; O2SAT 100
[2023-02-27] MEDS: PANTOPRAZOLE DR 40 MG TABLET PO (06:31)
[2023-02-27] MEDS: AMLODIPINE 5 MG TABLET 10 MG PO (08:19)
[2023-02-27] MEDS: ASPIRIN EC 81 MG TABLET PO (08:19)
[2023-02-27] MEDS: INSULIN LISPRO 100 UNIT/ML 3ML VIAL SUBCUT (08:19)
[2023-02-27 09:02] VITALS: BP 185/86; PULSE 73; RESP 16; TEMP 36.2; O2SAT 100
--- NOTE | 2023-02-28 18:04 | PM.DS.1 ---
History of Present Illness History of Present Illness Date Patient Seen: 02/24/23 Time Patient Seen: 17:40 Date of Onset of Symptoms: 02/24/23 Chief complaint: Confusion and right facial droop Narrative: The patient is a 72-year-old female with chronic kidney disease as well as diabetes. Currently not taking any medication he was on metformin for many years. She states her blood sugars are now controlled without medications. She does have chronic epigastric pain and takes antacid remedies from a local pharmacy. He notes that she is had about a 20 lb weight loss over the past year because of her epigastric pain. Because of this, her appetite is also quite poor. She went to [facility] to get antacids today, she then became confused and was unable to speak or find her medications. 911 was called and she was brought to the emergency department as a code stroke. Initial imaging was unremarkable, her sodium was 115. She does admit to some polydipsia recently with the heat as well as a very poor appetite. She denies any history of low sodium. Her blood pressure is also very elevated both in the emergency department. She denies a history of retention or taking blood pressure medications. He also denies a history of stroke or TIA. She was not given fluids in the are made but felt much better upon arrival. Tele neurology recommended no stroke treatment given her low sodium. 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 Acute hyponatremia 2. GERD 3. CKD 4. HTN 5. Type 2 Diabetes Hospital Course: Ms. Kerr was admitted with symptomatic hyponatremia. She likely had this due to poor oral intake, possibly secondary to GERD. For GERD she was started on PPI. She was also given IV fluids and her hyponatremia improved. She had her losartan held on discharge due to her presentation but this should be restarted when she sees her PCP if she continues to improve. She was discharged on amlodipine for her elevated blood pressures. She should see her PCP within one week. Exam Vital Signs (past 8 hours): Oxygen Delivery Method Room Air Oxygen Flow Rate 0 Narrative Exam Narrative: Gen: alert, NAD Lungs: clear CV: RRR Ext: no edema Neuro:alert, fully oriented, nl speech, no focal weakness Objective Labs 02/27/23 04:00 02/27/23 04:00 [facility] Medical History Acquired hypothyroidism Ankle fracture, left Carpal tunnel syndrome (~1997) Chronic right-sided low back pain with right-sided sciatica (12/08/16) CKD stage G4/A3, GFR 15-29 and albumin creatinine ratio >300 mg/g Diabetes mellitus type 2 in nonobese Dysphagia Essential hypertension GERD with esophagitis Hyperlipidemia associated with type 2 diabetes mellitus Wrist fracture, right (11/2016) Surgical History History of carpal tunnel repair (1997) Family History Mother Age: 91 Diabetes mellitus Father Dementia Social History household members: none lives independently: Yes Smoking Status: Never smoker alcohol intake: current Discharge Plan Discharge Plan Patient Disposition: Home Provider Discharge Comment: Ms. Kerr was admitted for low sodium (salt) levels. She felt better with IV fluids. She had high blood pressure and she was started on blood pressure medicines. She also had reflux and was started on a medicine for this (pantoprazole). She should follow up with her primary doctor within one week. Discharge orders & Medications Prescriptions: New amlodipine [Norvasc] 5 mg Tablet 10 mg PO DAILY Qty: 30 0RF pantoprazole 40 mg Tablet,Delayed Release (Dr/Ec) 40 mg PO 0700 Qty: 30 0RF Continued (DME) blood-glucose meter [Blood Glucose Monitoring] Kit See Rx Instructions .Route Qty: 1 0RF Rx Instructions: check blood sugar once daily (DME) lancets Misc See Rx Instructions .Route Qty: 100 3RF Rx Instructions: check blood sugar once daily (DME) Blood Glucose Test Strip See Rx Instructions .Route Qty: 100 3RF Rx Instructions: check blood sugar once daily. True Metrix B/G acetaminophen 325 mg tablet 975 mg PO TID PRN (Reason: Pain, Moderate) Follow up/Referrals: Abdias Mcdonough MD [Primary Care Provider] - 1 Week (hospitalized for hyponatremia (severe), also had high blood pressure, and gerd and started new meds) Diet/Activity/Treatments Diet: Regular Visit Report/Discharge Packet Stand Alone Forms: Patient Portal/API, Stroke Signs & Symptoms Discharge Data Primary Care Provider: Abdias Mcdonough Discharges patient from system. Discharge Date/Time: 02/27/23 09:37 Quality VTE Deep Vein Thrombosis/Pulmonary Embolism Present on Admission: No
== END 2023-02-27 09:37 | disposition home or self-care (01) | DRG 641 ==
LOC: ED 15:14 → AC 15:34 → ICU 16:26
PROVIDERS: Anesthesiology Critical Care Medicine; Internal Medicine; Internal Medicine Critical Care Medicine; Specialist; Student in an Organized Health Care Education/Training Program; Admitting Provider Hospitalist; Emergency Provider Emergency Medicine; PCP Student in an Organized Health Care Education/Training Program; Referring Provider Emergency Medicine; Visit Provider Hospitalist
DX: E87.1 Hypo-osmolality and hyponatremia (principal); R63.1 Polydipsia; I16.0 Hypertensive urgency; E11.22 Type 2 diabetes mellitus with diabetic chronic kidney disease; I12.9 Hypertensive chronic kidney disease with stage 1 through stage 4 chronic kidney disease, or unspecified chronic kidney disease; R80.9 Proteinuria, unspecified; K21.9 Gastro-esophageal reflux disease without esophagitis; N18.9 Chronic kidney disease, unspecified
CPT/HCPCS: 36415; 70450; 70496; 70498; 80048; 80053; 80305; 80320; 81001; 82550; 82962; 83036; 83735; 83935; 84100; 84295; 84300; 84443; 84484; 85025; 85610; 85730; 87635; 87797; 93005; 99285; 99291; C9803; J1815

== ENCOUNTER → 2023-03-17 07:29 | Outpatient (CLI) | payer MEDICARE, MEDICAID, SELFPAY ==
[2023-02-24 16:46] VITALS: BMI 19.8
[2023-03-17 09:24] LABS: Hematocrit 30.3 % (36-46); Hemoglobin 10.6 g/dL (12.0-16.0)
[2023-03-17 09:28] LABS: Creatinine Urine Random 26.3 mg/dL
[2023-03-17 09:33] LABS: Protein (Total) Urine Random 246 mg/dL (0-12); Protein Creatinine Ratio Urine 9.35 GRAM/24H
[2023-03-17 09:46] LABS: BUN Creatinine Ratio 10.3 (6-22); Blood Urea Nitrogen 15 mg/dL (7-17); Calcium 9.7 mg/dL (8.4-10.2); Carbon Dioxide 24 mmol/L (22-32); Chloride 98 mmol/L (98-107); Estimated Glomerular Filt Rate 38 mL/min (>60); Glucose 119 mg/dL (80-110); HEMOLYSIS < 15 (0-50); Potassium 4.4 mmol/L (3.4-5.1); Sodium 132 mmol/L (137-145)
[2023-03-17 09:57] LABS: HEMOLYSIS < 15 (0-50); Iron 98 ug/dL (37-170)
[2023-03-17 10:08] LABS: Percent Iron Saturation 32 % (15-50); Total Iron Binding Capacity 308 ug/dL (265-497); Transferrin 247 mg/dL (206-381)
[2023-03-17 10:16] LABS: Ferritin 47 ng/mL (11-264)
[2023-03-18 07:38] LABS: Parathyroid Hormone Int 34 pg/mL (15-65)
== END ==
PROVIDERS: Referring Provider Student in an Organized Health Care Education/Training Program; Visit Provider Student in an Organized Health Care Education/Training Program
DX: D50.0 Iron deficiency anemia secondary to blood loss (chronic) (principal); N05.9 Unspecified nephritic syndrome with unspecified morphologic changes; D64.9 Anemia, unspecified; N25.81 Secondary hyperparathyroidism of renal origin; R80.9 Proteinuria, unspecified
CPT/HCPCS: 36415; 80048; 82570; 82728; 83540; 83550; 83970; 84156; 85014; 85018

== ENCOUNTER → 2023-12-22 07:29 | Outpatient (CLI) | payer MEDICARE, SELFPAY ==
[2023-02-24 16:46] VITALS: BMI 19.8
[2023-12-22 09:55] LABS: Creatinine Urine Random 40.86 mg/dL; Protein (Total) Urine Random 104 mg/dL (0-12); Protein Creatinine Ratio Urine 2.54 GRAM/24H; Sodium Urine Random 109 mmol/L (30-90)
[2023-12-22 13:08] LABS: Blood Urea Nitrogen 23 mg/dL (7-17); Calcium 9.4 mg/dL (8.4-10.2); Carbon Dioxide 23 mmol/L (22-32); Chloride 107 mmol/L (98-107); Estimated Glomerular Filt Rate 28 mL/min (>60); Glucose 89 mg/dL (80-110); HEMOLYSIS < 15 (0-50); Sodium 137 mmol/L (137-145)
[2023-12-22 13:14] LABS: Potassium 5.4 mmol/L (3.4-5.1)
[2023-12-22 13:39] LABS: Cortisol AM (Before 10AM) 12.9 ug/dL (4.46-22.7)
[2023-12-23 13:36] LABS: Osmolality Urine 333 mOsmol/kg (.)
[2023-12-27 11:36] LABS: Osmolality, Serum 292 mOsmol/kg (280-301)
== END ==
LOC: LAB 07:31
PROVIDERS: PCP Internal Medicine; Referring Provider Student in an Organized Health Care Education/Training Program; Visit Provider Student in an Organized Health Care Education/Training Program
DX: N05.9 Unspecified nephritic syndrome with unspecified morphologic changes (principal); E87.1 Hypo-osmolality and hyponatremia; R80.9 Proteinuria, unspecified
CPT/HCPCS: 36415; 80048; 82533; 82570; 83930; 83935; 84156; 84300

== ENCOUNTER → 2024-01-03 07:53 | Outpatient (CLI) | payer MEDICARE, SELFPAY ==
[2023-02-24 16:46] VITALS: BMI 19.8
[2024-01-03 09:21] LABS: HEMOLYSIS < 15 (0-50)
== END ==
PROVIDERS: PCP Internal Medicine; Referring Provider Student in an Organized Health Care Education/Training Program; Visit Provider Student in an Organized Health Care Education/Training Program
DX: E87.5 Hyperkalemia (principal)
CPT/HCPCS: 36415; 84132

== ENCOUNTER → 2024-02-10 08:18 | Outpatient (CLI) | payer MEDICARE, SELFPAY ==
[2023-02-24 16:46] VITALS: BMI 19.8
[2024-02-10 09:46] LABS: Hematocrit 26.4 % (36-46); Hemoglobin 9.2 g/dL (12.0-16.0)
[2024-02-10 10:21] LABS: BUN Creatinine Ratio 9.5 (6-22); Blood Urea Nitrogen 19 mg/dL (7-17); Calcium 9.4 mg/dL (8.4-10.2); Carbon Dioxide 16 mmol/L (22-32); Chloride 103 mmol/L (98-107); Estimated Glomerular Filt Rate 26 mL/min (>60); Glucose 141 mg/dL (80-110); HEMOLYSIS < 15 (0-50); Potassium 4.6 mmol/L (3.4-5.1); Sodium 132 mmol/L (137-145)
[2024-02-10 15:36] LABS: Creatinine Urine Random 44.54 mg/dL; Protein (Total) Urine Random 58 mg/dL (0-12)
[2024-02-12 11:09] LABS: Parathyroid Hormone Int 33 pg/mL (15-65)
== END ==
PROVIDERS: PCP Internal Medicine; Referring Provider Student in an Organized Health Care Education/Training Program; Visit Provider Student in an Organized Health Care Education/Training Program
DX: N05.9 Unspecified nephritic syndrome with unspecified morphologic changes (principal); D70.9 Neutropenia, unspecified; D63.1 Anemia in chronic kidney disease; N25.81 Secondary hyperparathyroidism of renal origin; R80.9 Proteinuria, unspecified
CPT/HCPCS: 36415; 80048; 82570; 83970; 84156; 85014; 85018

== ENCOUNTER → 2024-06-19 09:30 | Outpatient (CLI) | payer MEDICARE, SELFPAY ==
[2023-02-24 16:46] VITALS: BMI 19.8
[2024-06-19 10:30] LABS: Hematocrit 27.1 % (36-46); Hemoglobin 9.2 g/dL (12.0-16.0)
[2024-06-19 10:44] LABS: Creatinine Urine Random 22.39 mg/dL; Protein (Total) Urine Random 54 mg/dL (0-12); Protein Creatinine Ratio Urine 2.41 GRAM/24H
[2024-06-19 11:03] LABS: BUN Creatinine Ratio 10.7 (6-22); Blood Urea Nitrogen 25 mg/dL (7-17); Calcium 9.7 mg/dL (8.4-10.2); Carbon Dioxide 21 mmol/L (22-32); Chloride 103 mmol/L (98-107); Estimated Glomerular Filt Rate 22 mL/min (>60); Glucose 121 mg/dL (80-110); HEMOLYSIS < 15 (0-50); Iron 59 ug/dL (37-170); Potassium 5.1 mmol/L (3.4-5.1); Sodium 134 mmol/L (137-145)
[2024-06-19 11:13] LABS: Percent Iron Saturation 22 % (15-50); Total Iron Binding Capacity 263 ug/dL (265-497); Transferrin 232 mg/dL (206-381)
[2024-06-19 11:32] LABS: HEMOLYSIS < 15 (0-50)
[2024-06-19 11:40] LABS: Ferritin 51 ng/mL (11-264)
== END ==
PROVIDERS: PCP Internal Medicine; Referring Provider Student in an Organized Health Care Education/Training Program; Visit Provider Student in an Organized Health Care Education/Training Program
DX: D50.0 Iron deficiency anemia secondary to blood loss (chronic) (principal); N05.9 Unspecified nephritic syndrome with unspecified morphologic changes; D70.8 Other neutropenia; R80.9 Proteinuria, unspecified; D63.1 Anemia in chronic kidney disease
CPT/HCPCS: 36415; 80048; 82570; 82728; 83540; 83550; 84156; 85014; 85018

== ENCOUNTER → 2024-08-08 11:30 | Outpatient (CLI) | payer MEDICARE, SELFPAY ==
[2023-02-24 16:46] VITALS: BMI 19.8
[2024-08-08 12:05] LABS: Hematocrit 25.6 % (36-46); Hemoglobin 8.8 g/dL (12.0-16.0)
[2024-08-08 12:26] LABS: Blood Urea Nitrogen 42 mg/dL (7-17); Calcium 9.4 mg/dL (8.4-10.2); Carbon Dioxide 31 mmol/L (22-32); Chloride 96 mmol/L (98-107); Estimated Glomerular Filt Rate 20 mL/min (>60); Glucose 100 mg/dL (80-110); HEMOLYSIS < 15 (0-50); Iron 51 ug/dL (37-170); Potassium 4.8 mmol/L (3.4-5.1); Sodium 137 mmol/L (137-145)
[2024-08-08 12:37] LABS: Percent Iron Saturation 19 % (15-50); Total Iron Binding Capacity 272 ug/dL (265-497); Transferrin 232 mg/dL (206-381)
[2024-08-08 13:02] LABS: Ferritin 75 ng/mL (11-264)
[2024-08-08 15:41] LABS: Creatinine Urine Random 13.39 mg/dL; Protein (Total) Urine Random 58 mg/dL (0-12); Protein Creatinine Ratio Urine 4.33 GRAM/24H
== END ==
PROVIDERS: PCP Internal Medicine; Referring Provider Student in an Organized Health Care Education/Training Program; Visit Provider Student in an Organized Health Care Education/Training Program
DX: D50.0 Iron deficiency anemia secondary to blood loss (chronic) (principal); N05.9 Unspecified nephritic syndrome with unspecified morphologic changes; D70.9 Neutropenia, unspecified; R80.9 Proteinuria, unspecified; D63.1 Anemia in chronic kidney disease
CPT/HCPCS: 36415; 80048; 82570; 82728; 83540; 83550; 84156; 85014; 85018

== ENCOUNTER → 2024-09-25 09:59 | Outpatient (CLI) | payer MEDICARE, SELFPAY ==
[2023-02-24 16:46] VITALS: BMI 19.8
[2024-09-25 10:28] LABS: Hematocrit 27.5 % (36-46); Hemoglobin 9.6 g/dL (12.0-16.0)
[2024-09-25 10:57] LABS: HEMOLYSIS < 15 (0-50); Iron 91 ug/dL (37-170)
[2024-09-25 10:59] LABS: Creatinine Urine Random 10.59 mg/dL; Protein (Total) Urine Random 56 mg/dL (0-12); Protein Creatinine Ratio Urine 5.28 GRAM/24H
[2024-09-25 11:00] LABS: Blood Urea Nitrogen 42 mg/dL (7-17); Calcium 9.9 mg/dL (8.4-10.2); Carbon Dioxide 30 mmol/L (22-32); Chloride 96 mmol/L (98-107); Estimated Glomerular Filt Rate 19 mL/min (>60); Glucose 104 mg/dL (80-110); HEMOLYSIS < 15 (0-50); Sodium 138 mmol/L (137-145)
[2024-09-25 11:02] LABS: Potassium 6.1 mmol/L (3.4-5.1)
[2024-09-25 11:09] LABS: Percent Iron Saturation 29 % (15-50); Total Iron Binding Capacity 313 ug/dL (265-497); Transferrin 251 mg/dL (206-381)
[2024-09-25 11:35] LABS: Ferritin 95 ng/mL (11-264)
[2024-09-27 07:09] LABS: Parathyroid Hormone Int 123 pg/mL (15-65)
== END ==
PROVIDERS: PCP Internal Medicine; Referring Provider Student in an Organized Health Care Education/Training Program; Visit Provider Student in an Organized Health Care Education/Training Program
DX: D50.9 Iron deficiency anemia, unspecified (principal); N05.9 Unspecified nephritic syndrome with unspecified morphologic changes; D50.0 Iron deficiency anemia secondary to blood loss (chronic); D70.9 Neutropenia, unspecified; D63.1 Anemia in chronic kidney disease; N25.81 Secondary hyperparathyroidism of renal origin; R80.9 Proteinuria, unspecified
CPT/HCPCS: 36415; 80048; 82570; 82728; 83540; 83550; 83970; 84156; 85014; 85018

== ENCOUNTER → 2024-10-05 13:27 | Outpatient (CLI) | payer MEDICARE, SELFPAY ==
[2023-02-24 16:46] VITALS: BMI 19.8
[2024-10-05 15:40] LABS: Hematocrit 27.7 % (36-46); Hemoglobin 9.7 g/dL (12.0-16.0); Mean Corpuscular HGB Conc 34.9 % (30-36); Mean Corpuscular Hemoglobin 32.6 PG (26-34); Mean Corpuscular Volume 93.2 fL (80-100); Platelet Count 302 X10^3/uL (150-400); Red Blood Cell Count 2.97 X10^6/uL (4.0-5.2); Red Cell Distribution Width 12.5 % (11.6-14.8); White Blood Cell Count 7.9 X10^3/uL (4.5-11.0)
[2024-10-05 16:00] LABS: Hemoglobin A1C% w Est Avg Glu 5.8 % (4.0-6.0)
[2024-10-05 16:00] LABS: HEMOLYSIS < 15 (0-50); Potassium 4.5 mmol/L (3.4-5.1)
[2024-10-05 16:04] LABS: Aspartate Aminotransferase 42 IU/L (14-36); BUN Creatinine Ratio 15.5 (6-22); Blood Urea Nitrogen 42 mg/dL (7-17); Calcium 9.6 mg/dL (8.4-10.2); Carbon Dioxide 30 mmol/L (22-32); Chloride 99 mmol/L (98-107); Cholesterol 130 mg/dL (140-199); Estimated Glomerular Filt Rate 18 mL/min (>60); Glucose 146 mg/dL (80-110); HDL Cholesterol 43 mg/dL (40-60); HEMOLYSIS < 15 (0-50); LDL Cholesterol Calculated 61 mg/dL (<100); Potassium 4.7 mmol/L (3.4-5.1); Sodium 140 mmol/L (137-145); Triglycerides 128 mg/dL (35-150)
== END ==
PROVIDERS: PCP Internal Medicine; Referring Provider Student in an Organized Health Care Education/Training Program; Visit Provider Student in an Organized Health Care Education/Training Program
DX: N05.9 Unspecified nephritic syndrome with unspecified morphologic changes (principal); E11.22 Type 2 diabetes mellitus with diabetic chronic kidney disease; E78.2 Mixed hyperlipidemia; D70.9 Neutropenia, unspecified; D50.0 Iron deficiency anemia secondary to blood loss (chronic); D63.1 Anemia in chronic kidney disease; R80.9 Proteinuria, unspecified; N25.81 Secondary hyperparathyroidism of renal origin; N18.32 Chronic kidney disease, stage 3b
CPT/HCPCS: 36415; 80048; 80061; 83036; 84132; 84450; 85027

== ENCOUNTER → 2024-11-17 09:49 | Outpatient (CLI) | payer MEDICARE, SELFPAY ==
[2023-02-24 16:46] VITALS: BMI 19.8
[2024-11-17 10:58] LABS: Hemoglobin 9.1 g/dL (12.0-16.0)
[2024-11-17 11:11] LABS: HEMOLYSIS < 15 (0-50)
[2024-11-17 11:13] LABS: Iron 75 ug/dL (37-170)
[2024-11-17 11:52] LABS: Ferritin 105 ng/mL (11-264)
[2024-11-17 13:00] LABS: Creatinine Urine Random 12.25 mg/dL; Protein (Total) Urine Random 38 mg/dL (0-12)
[2024-11-17 16:51] LABS: BUN Creatinine Ratio 16.6 (6-22); Blood Urea Nitrogen 42 mg/dL (7-17); Calcium 9.3 mg/dL (8.4-10.2); Carbon Dioxide 31 mmol/L (22-32); Chloride 90 mmol/L (98-107); Estimated Glomerular Filt Rate 20 mL/min (>60); Glucose 157 mg/dL (70-99); Potassium 4.6 mmol/L (3.4-5.1); Sodium 131 mmol/L (137-145)
[2024-11-18 10:36] LABS: Calcium 9.1 mg/dL (8.7-10.3); Parathyroid Hormone, Intact 99 pg/mL (15-65)
[2024-11-19 17:20] LABS: HEMOLYSIS < 15 (0-50); Percent Iron Saturation 28 % (15-50); Total Iron Binding Capacity 264 ug/dL (265-497); Transferrin 204 mg/dL (206-381)
== END ==
PROVIDERS: PCP Internal Medicine; Referring Provider Student in an Organized Health Care Education/Training Program; Visit Provider Student in an Organized Health Care Education/Training Program
DX: D50.0 Iron deficiency anemia secondary to blood loss (chronic) (principal); N05.9 Unspecified nephritic syndrome with unspecified morphologic changes; D70.9 Neutropenia, unspecified; D63.1 Anemia in chronic kidney disease; N25.81 Secondary hyperparathyroidism of renal origin; R80.9 Proteinuria, unspecified
CPT/HCPCS: 36415; 80048; 82310; 82570; 82728; 83540; 83550; 83970; 84156; 85014; 85018

== ENCOUNTER → 2024-12-26 12:07 | Outpatient (CLI) | payer MEDICARE, SELFPAY ==
[2023-02-24 16:46] VITALS: BMI 19.8
[2024-12-26 13:02] LABS: Creatinine Urine Random 13.08 mg/dL; Protein (Total) Urine Random 30 mg/dL (0-12); Protein Creatinine Ratio Urine 2.29 GRAM/24H
[2024-12-26 13:21] LABS: Hemoglobin A1C% w Est Avg Glu 6.1 % (4.0-6.0)
[2024-12-26 13:44] LABS: Iron 68 ug/dL (37-170)
[2024-12-26 13:46] LABS: Albumin 4.4 g/dL (3.5-5.0); Blood Urea Nitrogen 40 mg/dL (7-17); Calcium 8.7 mg/dL (8.4-10.2); Carbon Dioxide 36 mmol/L (22-32); Chloride 90 mmol/L (98-107); Estimated Glomerular Filt Rate 19 mL/min (>60); Glucose 113 mg/dL (70-99); HEMOLYSIS < 15 (0-50); Phosphorous 4.4 mg/dL (2.8-4.1); Sodium 135 mmol/L (137-145)
[2024-12-26 13:54] LABS: Total Iron Binding Capacity 263 ug/dL (265-497)
[2024-12-26 14:19] LABS: Ferritin 151 ng/mL (11-264)
== END ==
PROVIDERS: PCP Internal Medicine; Referring Provider Internal Medicine; Visit Provider Student in an Organized Health Care Education/Training Program
DX: N18.4 Chronic kidney disease, stage 4 (severe) (principal)
CPT/HCPCS: 36415; 80069; 82310; 82570; 82728; 83036; 83540; 83550; 83970; 84156

== ENCOUNTER → 2025-04-11 08:14 | Outpatient (CLI) | payer MEDICARE, SELFPAY ==
[2023-02-24 16:46] VITALS: BMI 19.8
[2025-04-11 08:58] LABS: Protein (Total) Urine Random 41 mg/dL (0-12); Protein Creatinine Ratio Urine 0.82 GRAM/24H
[2025-04-11 08:59] LABS: Hematocrit 28.4 % (36-46); Hemoglobin 10.0 g/dL (12.0-16.0)
[2025-04-11 09:15] LABS: HEMOLYSIS < 15 (0-50); Iron 85 ug/dL (37-170)
[2025-04-11 09:22] LABS: Blood Urea Nitrogen 30 mg/dL (7-17); Calcium 9.8 mg/dL (8.4-10.2); Carbon Dioxide 28 mmol/L (22-32); Chloride 97 mmol/L (98-107); Estimated Glomerular Filt Rate 19 mL/min (>60); Glucose 130 mg/dL (70-99); HEMOLYSIS < 15 (0-50); Potassium 4.5 mmol/L (3.4-5.1); Sodium 138 mmol/L (137-145)
[2025-04-11 09:27] LABS: Percent Iron Saturation 30 % (15-50); Total Iron Binding Capacity 288 ug/dL (265-497); Transferrin 248 mg/dL (206-381)
[2025-04-11 09:53] LABS: Ferritin 249 ng/mL (11-264)
== END ==
PROVIDERS: PCP Internal Medicine; Referring Provider Student in an Organized Health Care Education/Training Program; Visit Provider Student in an Organized Health Care Education/Training Program
DX: D50.0 Iron deficiency anemia secondary to blood loss (chronic) (principal); D63.1 Anemia in chronic kidney disease; D70.9 Neutropenia, unspecified; N05.9 Unspecified nephritic syndrome with unspecified morphologic changes; N25.81 Secondary hyperparathyroidism of renal origin; R80.9 Proteinuria, unspecified
CPT/HCPCS: 36415; 80048; 82570; 82728; 83540; 83550; 83970; 84156; 85014; 85018

== ENCOUNTER → 2025-06-30 12:35 | Outpatient (CLI) | payer MEDICARE, SELFPAY ==
[2023-02-24 16:46] VITALS: BMI 19.8
--- NOTE | 2025-06-30 12:38 | DI.RAD.S_ITS ---
PROCEDURE: XR CERVICAL SPINE 2V OR 3V INDICATIONS: Eval for spondylosis TECHNIQUE: 4 view(s) of the cervical spine were acquired. COMPARISON: None. FINDINGS: Bones: No fractures or dislocations to the T1 level. There is 3 mm anterolisthesis of C3 on C4. Loss of disc height, degenerative endplate changes and bilateral facet hypertrophic changes are noted throughout cervical spine. The lateral masses of C1 appear intact on the odontoid view. No suspicious bony lesions. Soft tissues: No prevertebral soft tissue swelling. IMPRESSION: No acute cervical spine fracture or dislocation. 3 mm anterolisthesis of C3 on C4. [id number] degenerative disc disease throughout cervical spine most notably at C4-5 through C6-7 levels. Dictated by: Juliano Montes M.D. on 07/01/2025 at 12:43 Approved by: Juliano Montes M.D. on 07/01/2025 at 12:44
== END ==
PROVIDERS: PCP Internal Medicine; Referring Provider Chiropractor; Visit Provider Chiropractor
DX: M43.6 Torticollis (principal); M43.12 Spondylolisthesis, cervical region; M50.321 Other cervical disc degeneration at C4-C5 level
CPT/HCPCS: 72040